=== PATIENT | male | born 1945 | race Caucasian/White ===

== ENCOUNTER 2020-06-05 03:30 | Observation (INO) ==
[2020-06-05] MEDS ORDERED: SODIUM CHLORIDE 0.9% 1000ML 1,000 ML IV ONE (03:46)
[2020-06-05] MEDS ORDERED: HYDROmorphone INJ 0.5 MG/0.5 ML SYR IV STA ×3 (03:46→10:19)
[2020-06-05] MEDS ORDERED: ONDANSETRON INJ 2 MG/ML 2 ML VIAL IV STA (03:46)
[2020-06-05 03:54] LABS: Basophils # (auto) 0.04 K/uL (0-0.2); Basophils % (auto) 0.5 %; Eosinophils # (auto) 0.38 K/uL (0-0.5); Hematocrit (blood only) 39.8 % (42-52); Hemoglobin 13.4 g/dL (14.0-18.0); Immature Granulocytes # (auto) 0.01 K/uL (0.00-0.02); Immature Granulocytes % (auto) 0.1 %; Lymphocytes # (auto) 2.75 K/uL (1.2-3.4); Lymphocytes % (auto) 36.4 %; Mean Corpuscular Hemoglobin 29.8 pg (25-34); Mean Corpuscular Hgb Conc 33.7 g/dL (32-36); Mean Corpuscular Volume 88.6 fL (80-100); Mean Platelet Volume 9.7 fL (7.4-10.4); Monocytes # (auto) 0.62 K/uL (0.11-0.59); Monocytes % (auto) 8.2 %; Neutrophils # (auto) 3.75 K/uL (1.4-6.5); Neutrophils % (auto) 49.8 %; Platelet Count 204 K/uL (130-400); RDW Coefficient of Variation 13.6 % (11.5-14.5); RDW Standard Deviation 44.3 fL (36.4-46.3); Red Blood Count 4.49 M/uL (4.7-6.1); White Blood Count 7.55 K/uL (4.8-10.8)
--- NOTE | 2020-06-05 03:56 | Emergency Department Note ---
History of Present Illness General Chief complaint: Back Injury/Pain Stated complaint: BACK/FLANK PAIN Time Seen by Provider: 06/05/20 03:38 Source: patient Mode of arrival: ambulatory Limitations: no limitations History of Present Illness Provider complaint: right flank pain Onset (ago): hour(s) 1 Location: back (right flank) Radiation: abdomen Severity: severe Pain Consistency: + colicky Maximum Pain Intensity: 8 Current Pain Intensity: 8 Quality: + sharp Relieved By: + none Exacerbated By: + movement Treatments prior to arrival: other (morphine - EMS) This 74-year-old male patient presents to the emergency department today for evaluation of right flank pain and nausea. The patient states the symptoms began approximately 1 hour ago. Earlier today, he was doing excessive amount of work outside. He states he was drinking a lot of fluids, but was not urinating much. He awoke at approximately 2 AM with the urge to urinate. He went a small amount then sat down to read. He states he then developed sudden onset of right flank pain which radiates to the right lower quadrant of the abdomen. Pt. states he called EMS and received morphine while en route which took his pain from an 8 to a 7, but states it is creeping up to an 8/10 again at this time. He describes a sharp sensation. Pt. denies any fever or chills. He denies any chest pain, difficulty breathing, nausea, vomiting, numbness, tingling, or weakness. He did have a few episodes of diarrhea, but states this is normal for him. Patient does not follow with a local urologist. He reports history of a kidney stones in the past. Home Medications Home Medications Medication Instructions Recorded Confirmed Type aspirin [Aspir-Low] 81 mg PO Q OTHER DAY 06/05/20 06/05/20 History cholecalciferol (vitamin D3) 25 mcg PO DAILY 06/05/20 06/05/20 History [Vitamin D3] lansoprazole 15 mg PO 2XWK 06/05/20 06/05/20 History oopxvd-ftnfqudr-zmzcelq [Creon] 2 cap PO TIDM 06/05/20 06/05/20 History multivitamin [Multi-Daily] 1 tab PO QAM 06/05/20 06/05/20 History vit B6-mag cit,oxid-potass cit 2 tab PO AMPM 06/05/20 06/05/20 History [Theralith XR] vitamin B complex 1 tab PO DAILY 06/05/20 06/05/20 History Allergies Allergy/AdvReac Type Severity Reaction Status Date / Time iodine Allergy Severe Hives Verified 06/05/20 04:34 erythromycin base Allergy Intermediate Hives Verified 06/05/20 04:34 levofloxacin [From Levaquin] Allergy Intermediate Hives Verified 06/05/20 04:34 Past Med/Surg History Medical History Acquired absence of other specified parts of digestive tract Nephrolithiasis Social History Smoking Status: Never smoker Hx Alcohol Use: No Hx Substance Use: No Feels Safe at Home: Yes Review of Systems A total of 10 systems reviewed and were otherwise negative Physical Exam Vital Signs Vital Signs - 24 hr 06/05/20 03:41 06/05/20 04:23 06/05/20 05:27 Temperature 36.8 C Temperature Source Oral Pulse Rate 60 Pulse Rate [Right] 62 Pulse Rhythm [Right] Regular Pulse Strength [Right] Normal Respiratory Rate 16 16 Respiratory Effort / Characteristics Non-Labored Spontaneous Non-Labored Spontaneous Respiratory Depth Normal Normal Blood Pressure 141/83 H Blood Pressure [Right Arm] 142/83 H Blood Pressure Mean 102 Blood Pressure Mean [Right Arm] 102 Blood Pressure Position [Right Arm] Pulse Oximetry 98 98 98 Oxygen Delivery Method Room Air Room Air Room Air Sepsis Recent Fever Within 48 Hours No Sepsis New/Unexplained Change in Mental Status N/A Sepsis Action Taken by Nursing No Action Required 06/05/20 06:01 Temperature Temperature Source Pulse Rate Pulse Rate [Right] 62 Pulse Rhythm [Right] Regular Pulse Strength [Right] Normal Respiratory Rate 16 Respiratory Effort / Characteristics Non-Labored Spontaneous Respiratory Depth Normal Blood Pressure Blood Pressure [Right Arm] 120/69 Blood Pressure Mean Blood Pressure Mean [Right Arm] 86 Blood Pressure Position [Right Arm] Sitting Pulse Oximetry 98 Oxygen Delivery Method Room Air Sepsis Recent Fever Within 48 Hours Sepsis New/Unexplained Change in Mental Status Sepsis Action Taken by Nursing VITALS: Vitals are noted on the nurse's note and reviewed by myself. Vital signs stable. GENERAL: This is a 74-year-old white male, in no acute distress, nondiaphoretic, well-developed well-nourished. SKIN: The skin was without rashes, erythema, edema, or bruising. There is no tenting of the skin. Capillary refill less than 2 seconds. HEAD: Normocephalic atraumatic. EYES: Conjunctivae without injection, sclerae without icterus. NECK: Supple without nuchal rigidity. No lymphadenopathy. No thyromegaly. Cervical spine is nontender. No JVD. HEART: Regular rate and rhythm without murmurs gallops or rubs. LUNGS: Clear to auscultation bilaterally without wheezes, rales or rhonchi. No retractions or accessory muscle use. ABDOMEN: Positive bowel sounds x 4. Normal tympanic percussion. Soft, nontender, without masses or organomegaly. Oconnor sign negative. No guarding or rebound tenderness. Positive right CVA tenderness. MUSCULOSKELETAL: No muscle atrophy, erythema, or edema noted. Full range of motion without joint tenderness in all extremities. No tenderness to palpation. Normal gait. Strength 5/5 throughout. NEURO: Patient was alert and oriented to person place and time. No focal neurological deficits. Course Course The patient was seen and evaluated as above. An order was placed for continuous cardiac monitoring. The monitor shows a normal sinus rhythm at a rate of 67 bpm. IV access obtained, labs drawn. Patient medicated with IV fluids and Dilaudid. Imaging performed and reviewed by myself and radiologist as noted. Labs reviewed by myself. I discussed the findings with the patient at bedside. He was reassessed and notes improvement in his symptoms, but he has not been able to urinate. States he needs a drink. I advised him that I am hydrating him through the IV and that he would need to remain NPO due to the size of the stone and likely need for intervention. I discussed the case with my attending. She did see and evaluate the patient. The patient is requesting more pain medication. He was given a repeat dose of 0 .5mg Dilaudid. I discussed the case with the manager of business. Urinalysis reviewed. I discussed the case with the [facility] Hospitalist, Dr. Ashton. He did agree to see the patient for admission. I discussed the case with Dr. Johnson, urologist computer lab para professional. He asked that Medicine place a consult to urology this morning and they will see the patient. Administered Medications Discontinued Medications Hydromorphone HCl (Hydromorphone Inj 0.5 Mg/0.5 Ml Syr) 0.5 mg IV NOW STA Stop: 06/05/20 03:47 Last Admin: 06/05/20 04:04 Dose: 0.5 mg Documented by: [id number] Hydromorphone HCl (Hydromorphone Inj 0.5 Mg/0.5 Ml Syr) 0.5 mg IV NOW STA Stop: 06/05/20 06:04 Last Admin: 06/05/20 06:09 Dose: 0.5 mg Documented by: [id number] Sodium Chloride (Nss 1000ml) 1,000 mls @ 999 mls/hr IV .Q1H1M ONE Stop: 06/05/20 04:46 Last Infusion: 06/05/20 05:16 Dose: 0 mls/hr Documented by: [id number] Admin: 06/05/20 04:04 Dose: 999 mls/hr Documented by: [id number] Ondansetron HCl (Ondansetron Inj 2 Mg/Ml 2 Ml Vial) 4 mg IV NOW STA Stop: 06/05/20 03:47 Last Admin: 06/05/20 04:09 Dose: Not Given Documented by: [id number] Tamsulosin HCl (Tamsulosin Hcl 0.4 Mg Cap) Confirm Administered Dose 0.4 mg .BELÉN RAMOSSTK-MED ONE Stop: 06/05/20 06:39 Last Admin: 06/05/20 06:39 Dose: 0.4 mg Documented by: [id number] Medical Decision Making Differential Diagnosis Renal colic, UTI, appendicitis, diverticulitis, mesenteric ischemia, aortic pathology, infections, inflammatory bowel disease, PUD, biliary pathology, as well as other pathologies. Home Medications Current Medication List: was personally reviewed by me Laboratory Data Attestation: I reviewed the patient's lab results. No leukocytosis, significant anemia, thrombocytopenia. Renal, hepatic function, and electrolytes without significant abnormality. Coags normal. Lipase 12. Urinalysis positive for trace blood, but no evidence of infection. Positive calcium oxalate crystals. Result diagrams: 06/05/20 03:40 06/05/20 03:40 Lab Results 06/05/20 06/05/20 06/05/20 Range/Units 03:40 03:40 03:40 WBC 7.55 (4.8-10.8) K/uL RBC 4.49 L (4.7-6.1) M/uL Hgb 13.4 L (14.0-18.0) g/dL Hct 39.8 L (42-52) % MCV 88.6 (80-100) fL MCH 29.8 (25-34) pg MCHC 33.7 (32-36) g/dL RDW Std Deviation 44.3 (36.4-46.3) fL RDW Coeff of Temitope 13.6 (11.5-14.5) % Plt Count 204 (130-400) K/uL MPV 9.7 (7.4-10.4) fL Immature Gran % (Auto) 0.1 % Neut % (Auto) 49.8 % Lymph % (Auto) 36.4 % [place] % (Auto) 8.2 % Eos % (Auto) 5.0 % Baso % (Auto) 0.5 % Neut # (Auto) 3.75 (1.4-6.5) K/uL Lymph # (Auto) 2.75 (1.2-3.4) K/uL [place] # (Auto) 0.62 H (0.11-0.59) K/uL Eos # (Auto) 0.38 (0-0.5) K/uL Baso # (Auto) 0.04 (0-0.2) K/uL Immature Gran # (Auto) 0.01 (0.00-0.02) K/uL PT 11.2 (9.0-12.0) Seconds INR 1.1 (0.9-1.1) APTT 21.4 (21.0-31.0) Seconds PTT Ratio 0.8 Sodium 141 (136-145) mmol/L Potassium (3.5-5.1) mmol/L Chloride 111 H (98-107) mmol/L Carbon Dioxide 25 (21-32) mmol/L Anion Gap 5.0 (3-11) BUN 20 H (7-18) mg/dl Creatinine 1.31 (0.6-1.4) mg/dl Est Cr Clr Drug Dosing 49.5 ml/min Est GFR ( Amer) 60.9 Est GFR (Non-Af Amer) 52.5 BUN/Creatinine Ratio 15.5 (10-20) Glucose 128 H (70-99) mg/dl Calcium 8.7 (8.5-10.1) mg/dl Total Bilirubin 0.8 (0.2-1) mg/dl AST (15-37) U/L ALT 34 (12-78) U/L Alkaline Phosphatase 63 (45-117) U/L Total Protein 7.1 (6.4-8.2) gm/dl Albumin 3.5 (3.4-5.0) gm/dl Globulin 3.6 (2.5-4.0) gm/dl Albumin/Globulin Ratio 1.0 (0.9-2) Lipase 12 L (73-393) U/L Urine Color Urine Appearance (Clear) Urine pH (4.5-7.5) Ur Specific Hobbs (1.000-1.030) Urine Protein (Negative) Urine Glucose (UA) (Negative) Urine Ketones (Negative) Urine Blood (Negative) Urine Nitrite (Negative) Urine Bilirubin (Negative) Urine Urobilinogen (Negative) Ur Leukocyte Esterase (Negative) Urine RBC (0-4) /hpf Urine WBC (0-5) /hpf Ur Epithelial Cells (0-5) /lpf Calcium Oxalate Crystal (None Prsent) Urine Bacteria (Negative) 06/05/20 Range/Units 04:30 WBC (4.8-10.8) K/uL RBC (4.7-6.1) M/uL Hgb (14.0-18.0) g/dL Hct (42-52) % MCV (80-100) fL MCH (25-34) pg MCHC (32-36) g/dL RDW Std Deviation (36.4-46.3) fL RDW Coeff of Temitope (11.5-14.5) % Plt Count (130-400) K/uL MPV (7.4-10.4) fL Immature Gran % (Auto) % Neut % (Auto) % Lymph % (Auto) % [place] % (Auto) % Eos % (Auto) % Baso % (Auto) % Neut # (Auto) (1.4-6.5) K/uL Lymph # (Auto) (1.2-3.4) K/uL [place] # (Auto) (0.11-0.59) K/uL Eos # (Auto) (0-0.5) K/uL Baso # (Auto) (0-0.2) K/uL Immature Gran # (Auto) (0.00-0.02) K/uL PT (9.0-12.0) Seconds INR (0.9-1.1) APTT (21.0-31.0) Seconds PTT Ratio Sodium (136-145) mmol/L Potassium (3.5-5.1) mmol/L Chloride (98-107) mmol/L Carbon Dioxide (21-32) mmol/L Anion Gap (3-11) BUN (7-18) mg/dl Creatinine (0.6-1.4) mg/dl Est Cr Clr Drug Dosing ml/min Est GFR ( Amer) Est GFR (Non-Af Amer) BUN/Creatinine Ratio (10-20) Glucose (70-99) mg/dl Calcium (8.5-10.1) mg/dl Total Bilirubin (0.2-1) mg/dl AST (15-37) U/L ALT (12-78) U/L Alkaline Phosphatase (45-117) U/L Total Protein (6.4-8.2) gm/dl Albumin (3.4-5.0) gm/dl Globulin (2.5-4.0) gm/dl Albumin/Globulin Ratio (0.9-2) Lipase (73-393) U/L Urine Color Yellow Urine Appearance Clear (Clear) Urine pH 5.0 (4.5-7.5) Ur Specific Hobbs >= 1.030 (1.000-1.030) Urine Protein Trace H (Negative) Urine Glucose (UA) Negative (Negative) Urine Ketones Negative (Negative) Urine Blood Trace H (Negative) Urine Nitrite Negative (Negative) Urine Bilirubin Negative (Negative) Urine Urobilinogen Negative (Negative) Ur Leukocyte Esterase Negative (Negative) Urine RBC 0-4 (0-4) /hpf Urine WBC 5-10 H (0-5) /hpf Ur Epithelial Cells 10-20 H (0-5) /lpf Calcium Oxalate Crystal Present A (None Prsent) Urine Bacteria Negative (Negative) Imaging Data Radiologist's Impression: CT ABDOMEN & PELVIS Without Contrast: 8 mm obstructing calculus in the right proximal ureter. Mild right hydroureteronephrosis and perinephric stranding. Small nonobstructing right renal calculus. Atrophic pancreas/postsurgical changes, Whipple procedure. Pneumobilia. Appendectomy. Small fat-containing inguinal hernias. L4-5 posterior fusion. Enlarged prostate Radiologist: Miesha Haines M.D. Blood Pressure Blood Pressure Findings: Elevated blood pressure Blood Pressure Disposition: elevated BP felt to be situational MDM Narrative This 74-year-old male patient presents the emergency department today for evaluation of right flank pain. Symptoms are consistent with stones he has experienced in the past. Work-up here in the ED is consistent with an 8 mm stone in the proximal right ureter. The patient is not septic. There does not appear to be any urinary tract infection or pyelonephritis, however there is tameka e stranding noted on CT imaging. Patient's pain was difficult to control and he required multiple rounds of Dilaudid. He will be admitted to the [facility] hospitalist service for ongoing management. I did discuss the case with the urologist on-call. I spoke with Dr. Johnson, who agreed that urology service would consult on this patient. The patient will be admitted to the hospitalist service. Please see hospitalist dictation regarding ongoing management care of this patient. The chart was completed utilizing [employer] Speech voice recognition software. Grammatical errors, random word insertions, pronoun errors, and incomplete sentences are an occasional consequence of this system due to software limitations, ambient noise, and hardware issues. Any formal questions or concerns about the content, text, or information contained within the body of this dictation should be directly addressed to the provider for clarification. Impression & Plan Right ureteral calculus, Acute right flank pain Discharge Plan Visit Data Chief Complaint: Back Injury/Pain Stated Complaint: BACK/FLANK PAIN ED Provider: Sandy Almeida ED Midlevel Provider: Tram Harrington Discharge Problem: Right ureteral calculus, Acute right flank pain Patient Disposition: Admitted As Inpatient Forms Stand Alone Forms: My [facility] Prescriptions Prescriptions: No Action multivitamin [Multi-Daily] Tablet 1 tab PO QAM RF: 0 aspirin [Aspir-Low] 81 mg Tablet,Delayed Release (Dr/Ec) 81 mg PO Q OTHER DAY RF: 0 lansoprazole 15 mg Capsule,Delayed Release(Dr/Ec) 15 mg PO 2XWK RF: 0 vitamin B complex Tablet 1 tab PO DAILY RF: 0 cholecalciferol (vitamin D3) [Vitamin D3] 25 mcg (1,000 unit) Tablet 25 mcg PO DAILY RF: 0 Creon 24,000-76,000 -120,000 unit Capsule,Delayed Release(Dr/Ec) 2 cap PO TIDM RF: 0 Theralith XR 3.75-45-45-49.5 mg Tablet Extended Release 2 tab PO AMPM RF: 0 Referrals Referrals: Payam Mary MD [Primary Care Provider] -
[2020-06-05 04:04] LABS: INR 1.1 (0.9-1.1); Partial Thromboplastin Ratio 0.8; Partial Thromboplastin Time 21.4 Seconds (21.0-31.0); Prothrombin Time 11.2 Seconds (9.0-12.0)
[2020-06-05 04:11] LABS: Albumin Level 3.5 gm/dl (3.4-5.0); BUN Creatinine Ratio 15.5 (10-20); Bilirubin,Total 0.8 mg/dl (0.2-1); Calcium 8.7 mg/dl (8.5-10.1); Creatinine Clr Calc Pharmacy 49.5 ml/min; Est GFR (African American) 60.9; Est GFR (Non-African American) 52.5; Globulin 3.6 gm/dl (2.5-4.0); Total Protein 7.1 gm/dl (6.4-8.2)
[2020-06-05 06:22] LABS: Appearance Urine Clear (Clear); Bilirubin Urine Negative (Negative); Blood Urine Trace (Negative); Color Urine Yellow; Glucose Urine UA Negative (Negative); Ketones Urine Negative (Negative); Leukocyte Esterase Urine Negative (Negative); Nitrite Urine Negative (Negative); Protein Urine Trace (Negative); Specific Gravity Urine >= 1.030 (1.000-1.030); Urobilinogen Urine Negative (Negative)
--- NOTE | 2020-06-05 06:30 | Emergency Department Note ---
ED Visit Note I have personally seen and evaluated the patient with the PA. I agree with the diagnosis and management decisions and have been personally involved in the case. Please see Tram Harrington PA-C's notes for further details of the history, physical and visit. The patient was having increased pain secondary to the stone. He will receive additional pain medication at this time. .
[2020-06-05] MEDS ORDERED: TAMSULOSIN HCL 0.4 MG CAP PO ONE (06:33)
[2020-06-05 06:35] LABS: RBC Urine 0-4 /hpf (0-4)
[2020-06-05 06:36] LABS: Bacteria Urine Negative (Negative); Calcium Oxalate Crystals Urine Present (None Prsent)
[2020-06-05] MEDS ORDERED: TAMSULOSIN HCL 0.4 MG CAP ONE (06:38)
--- NOTE | 2020-06-05 07:03 | History & Physical Report ---
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 [place] [facility] N.p.o. until patient seen by Urology in anticipation of procedure. Anemia work-up DVT prophylaxis. SCDs Full code Patient requesting updates from providers. Ms. Rekha Hall, contact #[phone]. Text document was generated using [employer] voice recognition software. It may contain grammatical or spelling errors. Kindly contact undersigned for clarification of any documentation item in question. History of Present Illness Chief Complaint: Kidney stone pain Primary Care Provider: Payam Mary MD History obtained from patient, family, and records. Medical history significant for duodenal cancer status post Whipple surgery, urolithiasis, prediabetes. This morning patient experienced achy right flank discomfort reminiscent of kidn ey stone pain with nausea. No hematuria, fever, chills. No chest pain, no S OB. Nonbloody loose stools which has been patient's norm after Whipple surgery decades ago. Patient brought to the ER by . 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 Allergies Allergy/AdvReac Type Severity Reaction Status Date / Time iodine Allergy Severe Hives Verified 06/05/20 04:34 erythromycin base Allergy Intermediate Hives Verified 06/05/20 04:34 levofloxacin [From Levaquin] Allergy Intermediate Hives Verified 06/05/20 04:34 Home Medications Home Medications Medication Instructions Recorded Confirmed Type aspirin [Aspir-Low] 81 mg PO Q OTHER DAY 06/05/20 06/05/20 History cholecalciferol (vitamin D3) 25 mcg PO DAILY 06/05/20 06/05/20 History [Vitamin D3] lansoprazole 15 mg PO 2XWK 06/05/20 06/05/20 History ewvhsm-skqlteqz-ytthxal [Creon] 2 cap PO TIDM 06/05/20 06/05/20 History multivitamin [Multi-Daily] 1 tab PO QAM 06/05/20 06/05/20 History vit B6-mag cit,oxid-potass cit 2 tab PO AMPM 06/05/20 06/05/20 History [Theralith XR] vitamin B complex 1 tab PO DAILY 06/05/20 06/05/20 History Past Med/Surg History Medical History (Updated 06/05/20 @ 13:26 by Leann Crews RN) Acquired absence of other specified parts of digestive tract H/O pancreatic cancer s/p whipple Nephrolithiasis Prediabetes Surgical History (Updated 06/05/20 @ 12:53 by Gregorio Dang MD) H/O knee surgery History of back surgery Social History Smoking Status: Former smoker Second Hand Exposure: No; Do You Dip or Chew Tobacco: No; Tobacco Cessation Education Requested by Patient: No Hx Alcohol Use: Yes Alcohol type: wine Hx Substance Use: No Preferred Language: [place] Communication Ability: Effective Oyster Sorter Required: No Beliefs That Will Affect Care: None Current Living Situation: Spouse Other Information That Helps Us Care for You: No Feels Safe at Home: Yes Review of Systems Review of Systems: As per HPI, all 10 systems reviewed, all other ROS negative Physical Exam Physical Exam: GENERAL: Comfortable, slightly anxious, pleasant, no respiratory distress SKIN: Normal color, warm HEENT: Bespectacled, pink palpebral conjunctivae, no ptosis, dry buccal mucosa NECK : Supple, no tenderness CHEST : CTA, no tenderness HEART : RRR, no obvious murmurs ABDOMEN: Some distention, nontender EXTREMITIES : No LE swelling/tenderness, no other conspicuous deformities noted NEUROLOGIC : Coherent, no facial asymmetry, no other gross focality Results & Data Results & Data ([facility]) Vital Signs (Past 12 Hours) Vital Signs Temp Pulse Pulse Resp BP BP Pulse Ox 06/05/20 06:01 62 16 120/69 98 06/05/20 05:27 62 16 142/83 H 98 06/05/20 04:23 98 06/05/20 03:41 36.8 C 60 16 141/83 H 98 Laboratory Results Laboratory Results WBC 7.55 K/uL (4.8-10.8) 06/05/20 03:40 RBC 4.49 M/uL (4.7-6.1) L 06/05/20 03:40 Hgb 13.4 g/dL (14.0-18.0) L 06/05/20 03:40 Hct 39.8 % (42-52) L 06/05/20 03:40 MCV 88.6 fL (80-100) 06/05/20 03:40 MCH 29.8 pg (25-34) 06/05/20 03:40 MCHC 33.7 g/dL (32-36) 06/05/20 03:40 RDW Std Deviation 44.3 fL (36.4-46.3) 06/05/20 03:40 RDW Coeff of Temitope 13.6 % (11.5-14.5) 06/05/20 03:40 Plt Count 204 K/uL (130-400) 06/05/20 03:40 MPV 9.7 fL (7.4-10.4) 06/05/20 03:40 Immature Gran % (Auto) 0.1 % 06/05/20 03:40 Neut % (Auto) 49.8 % 06/05/20 03:40 Lymph % (Auto) 36.4 % 06/05/20 03:40 [facility] % (Auto) 8.2 % 06/05/20 03:40 Eos % (Auto) 5.0 % 06/05/20 03:40 Baso % (Auto) 0.5 % 06/05/20 03:40 Neut # (Auto) 3.75 K/uL (1.4-6.5) 06/05/20 03:40 Lymph # (Auto) 2.75 K/uL (1.2-3.4) 06/05/20 03:40 [facility] # (Auto) 0.62 K/uL (0.11-0.59) H 06/05/20 03:40 Eos # (Auto) 0.38 K/uL (0-0.5) 06/05/20 03:40 Baso # (Auto) 0.04 K/uL (0-0.2) 06/05/20 03:40 Immature Gran # (Auto) 0.01 K/uL (0.00-0.02) 06/05/20 03:40 PT 11.2 Seconds (9.0-12.0) 06/05/20 03:40 INR 1.1 (0.9-1.1) 06/05/20 03:40 APTT 21.4 Seconds (21.0-31.0) 06/05/20 03:40 PTT Ratio 0.8 06/05/20 03:40 Sodium 141 mmol/L (136-145) 06/05/20 03:40 Potassium mmol/L (3.5-5.1) 06/05/20 03:40 Chloride 111 mmol/L (98-107) H 06/05/20 03:40 Carbon Dioxide 25 mmol/L (21-32) 06/05/20 03:40 Anion Gap 5.0 (3-11) 06/05/20 03:40 BUN 20 mg/dl (7-18) H 06/05/20 03:40 Creatinine 1.31 mg/dl (0.6-1.4) 06/05/20 03:40 Est Cr Clr Drug Dosing 49.5 ml/min 06/05/20 03:40 Est GFR ( Amer) 60.9 06/05/20 03:40 Est GFR (Non-Af Amer) 52.5 06/05/20 03:40 BUN/Creatinine Ratio 15.5 (10-20) 06/05/20 03:40 Glucose 128 mg/dl (70-99) H 06/05/20 03:40 Calcium 8.7 mg/dl (8.5-10.1) 06/05/20 03:40 Total Bilirubin 0.8 mg/dl (0.2-1) 06/05/20 03:40 AST U/L (15-37) 06/05/20 03:40 ALT 34 U/L (12-78) 06/05/20 03:40 Alkaline Phosphatase 63 U/L (45-117) 06/05/20 03:40 Total Protein 7.1 gm/dl (6.4-8.2) 06/05/20 03:40 Albumin 3.5 gm/dl (3.4-5.0) 06/05/20 03:40 Globulin 3.6 gm/dl (2.5-4.0) 06/05/20 03:40 Albumin/Globulin Ratio 1.0 (0.9-2) 06/05/20 03:40 Lipase 12 U/L (73-393) L 06/05/20 03:40 Urine Color Yellow 06/05/20 04:30 Urine Appearance Clear (Clear) 06/05/20 04:30 Urine pH 5.0 (4.5-7.5) 06/05/20 04:30 Ur Specific Dexter >= 1.030 (1.000-1.030) 06/05/20 04:30 Urine Protein Trace (Negative) H 06/05/20 04:30 Urine Glucose (UA) Negative (Negative) 06/05/20 04:30 Urine Ketones Negative (Negative) 06/05/20 04:30 Urine Blood Trace (Negative) H 06/05/20 04:30 Urine Nitrite Negative (Negative) 06/05/20 04:30 Urine Bilirubin Negative (Negative) 06/05/20 04:30 Urine Urobilinogen Negative (Negative) 06/05/20 04:30 Ur Leukocyte Esterase Negative (Negative) 06/05/20 04:30 Urine RBC 0-4 /hpf (0-4) 06/05/20 04:30 Urine WBC 5-10 /hpf (0-5) H 06/05/20 04:30 Ur Epithelial Cells 10-20 /lpf (0-5) H 06/05/20 04:30 Calcium Oxalate Crystal Present (None Prsent) A 06/05/20 04:30 Urine Bacteria Negative (Negative) 06/05/20 04:[address] abdomen pelvis initial read: 8 mm obstructing calculus right proximal ureter with mild right hydroureteronephrosis and perinephric stranding. Small nonobstructing right renal calculus. Atrophic pancreas/postsurgical changes. Pneumobilia. Appendectomy. Small fat-containing inguinal hernia. Enlarged prostate.
--- NOTE | 2020-06-05 07:07 | CT Scan Report ---
CT abd pelvis wo con CT DOSE: 846.13 mGy.cm HISTORY: Flank pain right flank pain TECHNIQUE: Multiaxial CT images of the abdomen and pelvis were performed without contrast. A dose lo wering technique was utilized adhering to the principles of ALARA. COMPARISON STUDY: None. FINDINGS: The lung bases are clear. There is an the biliary ductal system. Prior postoperative change suggesting a well type procedure. 8 millimeters obstructing calculus proximal right ureter. Right renal hydronephrosis. Mild fullness left renal collecting system. Nonspecific infiltrative changes in the perinephric fat b ilaterally. Nonobstructive bowel pattern. Postoperative changes involving the lumbar spine. Bladder i s midline. Postoperative changes including scarring of the right inguinal region. No significant pelvic or inguinal adenopathy. IMPRESSION: 1. 8 mm obstructing calculus proximal right ureter. 2. Right hydronephrosis. 3. Additional findings throughout the abdomen and pelvis considered to be pre-existing ACT 112: Negative or not required by law. The above report was generated using voice recognition software. It may contain grammatical, syntax or spelling errors. Electronically signed by: Robb Abarham M.D. 06/05/2020 7:06 AM
[2020-06-05] MEDS ORDERED: PROMETHAZINE HCL 12.5 MG in SODIUM CHLORIDE 0.9% 50 ML IV PRN (07:38)
[2020-06-05] MEDS ORDERED: OXYCODONE HCL IR 5 MG TAB (IMMEDIATE RELEASE) PO PRN (07:38)
[2020-06-05] MEDS ORDERED: SODIUM CHLORIDE 0.9% 1000ML 1,000 ML IV SCH (07:38)
[2020-06-05] MEDS ORDERED: ACETAMINOPHEN 325 MG TAB PO PRN (07:38)
[2020-06-05] MEDS ORDERED: MoRPHine SULFATE 2 MG/ML CARP IV PRN (07:50)
[2020-06-05] MEDS ORDERED: VITAMIN B COMPLEX TAB PO SCH (09:00)
[2020-06-05] MEDS ORDERED: MULTIVITAMIN TAB PO SCH (09:00)
--- NOTE | 2020-06-05 09:09 | XRay Report ---
KUB CLINICAL HISTORY: Right ureteral stone. FINDINGS: 2 AP supine abdominal radiographs are correlated with abdominal CT performed earlier the day 06/05/2020. There is a nonobstructed abdominal bowel gas pattern noting moderate colonic fecal retention. An 8 mm obstructing calculus in the right proximal ureter is again seen at the level of L2 . No additional calcifications are identified projecting over either kidney. The skeletal structures are osteopenic and appear intact. Fusion hardware is noted in the lower lumbar spine. Sclerotic fr[place] e is seen in the sacroiliac joints. IMPRESSION: An 8 mm obstructing calculus in the proximal right ureter is unchanged from previous. Electronically signed by: Rich Levine M.D. 06/05/2020 9:08 AM
[2020-06-05 09:49] LABS: Reticulocyte % 0.9 % (0.5-2.0); Reticulocytes # 0.04 10^6/uL (0.02-0.10)
[2020-06-05 10:04] LABS: Potassium 4.3 mmol/L (3.5-5.1)
[2020-06-05 10:13] LABS: Magnesium 2.3 mg/dl (1.8-2.4)
[2020-06-05] MEDS: PANCREAZE (LIPASE 10,500U) CAP PO SCH ×3 (10:19→17:33)
[2020-06-05] MEDS ORDERED: CEFAZOLIN 2000MG 2,000 MG/15 ML SYR IV SCH (11:15)
--- NOTE | 2020-06-05 11:16 | Urology Consultation ---
Date of Consultation June 05, 2020 Assessment & Plan (1) Right ureteral calculus: (2) Renal colic: 74yo M with an 8mm proximal right ureteral stone with hydronephrosis and right renal colic -Given his continued right renal colic, will proceed to OR for stent placement -He remains afebrile, WBC and Cr are stable -Keep NPO -Findings reviewed with Dr. Kenny. Given his right renal colic and hydronephrosis in the context of an obstructing 8mm proximal right ureteral stone, will proceed with OR for cysto, Right retrograde pyelogram and Right stent placement. Risks and benefits to be reviewed with patient by Dr. Kenny. OR notified. Preoperative CXR and EKG ordered. Will cover with IV Ancef preoperatively. Pt. seen and discussed options risks and benefits . Agreed to place a stent under sedation in this pt w/o covid testing and subsequent eswl or ureteroscopy electively. Shay Kenny History of Present Illness Reason for Consultation: Obstructive Uropathy Attending Physician: Ramandeep Figueroa MD History of Present Illness The patient is a 74-year-old male patient admitted today for right flank pain and nausea related to an 8mm obstructing proximal ureteral stone with hydronephrosis. PMHx includes Nephrolithiasis, duodenal cancer s/p Whipple surgery, anemia, prediabetes Chart Review: -Afebrile -WBC -7.55 -HgB- 13.4 -Cr -1.31 -CT- 8 mm obstructing calculus proximal right ureter with hydronephrosis -KUB - An 8 mm obstructing calculus in the proximal right ureter -UA-trace blood, trace protein, 5-10WBC Patient examined at the bedside today. At present, he reports right back and flank pain. Rates pain 9/10. He is currently getting IV Morphine for pain control. He denies fevers or chills. No nausea or vomiting. He has been NPO. Denies gross hematuria and dysuria. Feels like he is emptying his bladder completely. No additional urinary symptoms. He reports a history of nephrolithiasis requiring surgical interventions in the past. He was previously seen by a Urologist in [place]. No additional Urological concerns today Allergies Allergy/AdvReac Type Severity Reaction Status Date / Time iodine Allergy Severe Hives Verified 06/05/20 04:34 erythromycin base Allergy Intermediate Hives Verified 06/05/20 04:34 levofloxacin [From Levaquin] Allergy Intermediate Hives Verified 06/05/20 04:34 Home Medications Home Medications Medication Instructions Recorded Confirmed Type aspirin [Aspir-Low] 81 mg PO Q OTHER DAY 06/05/20 06/05/20 History cholecalciferol (vitamin D3) 25 mcg PO DAILY 06/05/20 06/05/20 History [Vitamin D3] lansoprazole 15 mg PO 2XWK 06/05/20 06/05/20 History [id number]-[id number]-[id number] [Creon] 2 cap PO TIDM 06/05/20 06/05/20 History multivitamin [Multi-Daily] 1 tab PO QAM 06/05/20 06/05/20 History vit B6-mag cit,oxid-potass cit 2 tab PO AMPM 06/05/20 06/05/20 History [Theralith XR] vitamin B complex 1 tab PO DAILY 06/05/20 06/05/20 History Patient History Medical History (Updated 06/05/20 @ 13:26 by Leann Crews RN) Acquired absence of other specified parts of digestive tract H/O pancreatic cancer s/p whipple Nephrolithiasis Prediabetes Surgical History (Updated 06/05/20 @ 12:53 by Gregorio Dang MD) H/O knee surgery History of back surgery Social History Smoking Status: Former smoker Second Hand Exposure: No; Do You Dip or Chew Tobacco: No; Tobacco Cessation Education Requested by Patient: No Hx Alcohol Use: Yes Alcohol type: wine Hx Substance Use: No Preferred Language: Portuguese Communication Ability: Effective Labeler Required: No Beliefs That Will Affect Care: None Current Living Situation: Spouse Other Information That Helps Us Care for You: No Feels Safe at Home: Yes Review of Systems Review of Systems: All systems reviewed & are unremarkable except as noted in HPI & below Physical Exam Constitutional: well developed and well nourished; no acute distress and not ill appearing Eyes: no eyelid abnormality ENMT: Ears: no external ear abnormality Neck: normal visual inspection; no anterior neck swelling Respiratory: normal respiratory effort and able to speak in complete sentences Cardiovascular: Rate/Rhythm: regular rate and regular rhythm No peripheral edema Gastrointestinal (Abdomen): Inspection/Auscultation: abdomen normal to inspection; abdomen not distended Musculoskeletal: Head/Neck/Chest: normocephalic and head atraumatic Skin: no rashes, warm and dry normal color to visualized skin areas Neurologic: moves all extremities and awake; not confused Psychiatric: Orientation: alert, oriented x 3 and cooperative Results & Data ([facility]) Vital Signs (Past 12 Hours) Vital Signs Temp Pulse Pulse Pulse Resp BP BP 06/05/20 07:35 36.7 C 71 18 142/67 H 06/05/20 06:01 62 16 120/69 06/05/20 05:27 62 16 142/83 H 06/05/20 04:23 06/05/20 03:41 36.8 C 60 16 141/83 H Pulse Ox 06/05/20 07:35 96 06/05/20 06:01 98 06/05/20 05:27 98 06/05/20 04:23 98 06/05/20 03:41 98 PG Care Time/CCT Total # of Minutes Spent Total Time Spent with Patient: Total time spent is greater than 50% in coordination of care (as documented) at patient's floor/unit and/or counseling patient: Coding Level of Care Code 62713 Inpt Consult Level 4 Diagnoses Right ureteral calculus N20.1 Renal colic N23
--- NOTE | 2020-06-05 12:07 | XRay Report ---
XR chest 2V PA/lateral CLINICAL HISTORY: pre op COMPARISON STUDY: No previous studies for comparison. FINDINGS: The bones soft tissues and hemidiaphragms are normal. The cardiomediastinal silhouette is n ormal. The lungs are clear. The pulmonary vasculature is normal. IMPRESSION: Negative chest. ACT 112: Negative or not required by law. The above report was generated using voice recognition software. It may contain grammatical, syntax or spelling errors. Electronically signed by: Robb Abraham M.D. 06/05/2020 12:06 PM
[2020-06-05] MEDS ORDERED: LIDOCAINE HCL 2% 2 ML VIAL/AMP(20MG/ML) INFIL ONE (12:30)
[2020-06-05] MEDS ORDERED: PROPOFOL IV EMULSION 10 MG/ML 20 ML VIAL IV ONE (12:30)
[2020-06-05] MEDS ORDERED: MIDAZOLAM HCL 1 MG/ML 2ML VIAL ONE (12:31)
[2020-06-05] MEDS ORDERED: fentaNYL citrate 100 MCG/2 ML VIAL ONE (12:31)
[2020-06-05] MEDS ORDERED: ONDANSETRON INJ 2 MG/ML 2 ML VIAL IV PRN (12:32)
[2020-06-05] MEDS ORDERED: fentaNYL citrate 100 MCG/2 ML VIAL IV PRN (12:32)
[2020-06-05] MEDS ORDERED: ATROPINE SULFATE 0.1 MG/ML 10ML SYR IV PRN (12:32)
[2020-06-05] MEDS ORDERED: ePHEDrine sulfate 50 MG/ML AMP IV PRN (12:32)
--- NOTE | 2020-06-05 12:32 | Anesthesiology Consultation ---
Date of Service June 05, 2020 Assessment & Plan (1) Encounter for pre-operative examination: Chart Review Chart Review: Acceptable Risk for Surgery and Patient NOT seen in Pre Admission Testing Preop covid screening test 06/05/2020 negative. Consults Requested none History Surgery Operation Date: 06/05/20 15:55 Proposed Procedures p Cystoscopy, Retrograde Pyelogram, Right Stent Insertion - Calvin Kenny MD Height/Weight Height: 5 ft 10 in Weight: 81.6 kg Allergies Allergy/AdvReac Type Severity Reaction Status Date / Time iodine Allergy Severe Hives Verified 06/05/20 04:34 erythromycin base Allergy Intermediate Hives Verified 06/05/20 04:34 levofloxacin [From Levaquin] Allergy Intermediate Hives Verified 06/05/20 04:34 Medications Home Medications Medication Instructions Recorded Confirmed Last Taken aspirin [Aspir-Low] 81 mg PO Q OTHER DAY 06/05/20 06/05/20 06/04/20 cholecalciferol (vitamin D3) 25 mcg PO DAILY 06/05/20 06/05/20 06/04/20 [Vitamin D3] lansoprazole 15 mg PO 2XWK 06/05/20 06/05/20 06/03/20 [id number]-[id number] [Creon] 2 cap PO TIDM 06/05/20 06/05/20 06/04/20 multivitamin [Multi-Daily] 1 tab PO QAM 06/05/20 06/05/20 06/04/20 vit B6-mag cit,oxid-potass cit 2 tab PO AMPM 06/05/20 06/05/20 06/04/20 [Theralith XR] vitamin B complex 1 tab PO DAILY 06/05/20 06/05/20 06/04/20 Active Medications Generic Name Dose Route Start Last Admin Trade Name Freq PRN Reason Stop Dose Admin Lipase/Protease/Amylase 4 cap 06/05/20 09:15 06/05/20 12:12 Pancreaze (Lipase 10,500u) Cap PO 07/05/20 09:14 Not Given TIDM ANN Sodium Chloride 1,000 mls @ 75 mls/hr 06/05/20 07:38 06/05/20 09:42 Nss 1000ml IV 07/05/20 07:37 75 mls/hr .[id number] ANN Administration Morphine Sulfate 2 mg 06/05/20 07:50 06/05/20 08:02 Morphine Sulfate 2 Mg/Ml Carp IV 06/19/20 07:49 2 mg Q3H PRN Administration Pain Multivitamins 1 tab 06/05/20 09:00 06/05/20 10:19 Multivitamin Tab PO 07/05/20 08:59 Not Given QAM ANN Vitamin B Complex 1 tab 06/05/20 09:00 06/05/20 10:19 Vitamin B Complex Tab PO 07/05/20 08:59 Not Given DAILY ANN Past Medical History Medical History Acquired absence of other specified parts of digestive tract H/O pancreatic cancer s/p whipple Nephrolithiasis Exercise / Class Metabolic Activity II 4-5 Yardwork/Stairs/Walk up hill Past Surgical History Surgical History (Updated 06/05/20 @ 12:53 by Gregorio Dang MD) H/O knee surgery History of back surgery history of whipplesurgery Past Anesthesia History No Hx of Anesthesia Complications and No Family Hx of Anesthesia Complications History of PONV No Hx of PONV and No Hx of Motion Sickness Social History Smoking Status: Former smoker tobacco type: pipe Do You Dip or Chew Tobacco: No Hx Alcohol Use: Yes Alcohol type: wine alcohol intake frequency: 0-2 drinks per day Hx Substance Use: No Physical Exam Vital Signs Last Vital Signs Temp 36.6 C 06/05/20 12:49 Pulse 96 H 06/05/20 12:49 Resp 20 06/05/20 12:49 BP 154/74 H 06/05/20 12:49 Pulse Ox 97 06/05/20 12:49 Testing Laboratory Results 06/05/20 03:40 06/05/20 09:37 PT 11.2 Seconds (9.0-12.0) 06/05/20 03:40 INR 1.1 (0.9-1.1) 06/05/20 03:40 APTT 21.4 Seconds (21.0-31.0) 06/05/20 03:40 Urine Color Yellow 06/05/20 04:30 Urine Appearance Clear (Clear) 06/05/20 04:30 Urine pH 5.0 (4.5-7.5) 06/05/20 04:30 Ur Specific [place] >= 1.030 (1.000-1.030) 06/05/20 04:30 Urine Protein Trace (Negative) H 06/05/20 04:30 Urine Glucose (UA) Negative (Negative) 06/05/20 04:30 Urine Ketones Negative (Negative) 06/05/20 04:30 Urine Nitrite Negative (Negative) 06/05/20 04:30 Ur Leukocyte Esterase Negative (Negative) 06/05/20 04:30 Urine RBC 0-4 /hpf (0-4) 06/05/20 04:30 Urine WBC 5-10 /hpf (0-5) H 06/05/20 04:30 Ur Epithelial Cells 10-20 /lpf (0-5) H 06/05/20 04:30 Electrocardiogram Date: 06/05/20 Findings: + NSR @ (75) Sinus rhythm with 1st degree AV block Incomplete RBBB Chest X-Ray Date: 06/05/20 XR chest 2V PA/lateral CLINICAL HISTORY: pre op COMPARISON STUDY: No previous studies for comparison. FINDINGS: The bones soft tissues and hemidiaphragms are normal. The cardiomediastinal silhouette is normal. The lungs are clear. The pulmonary vasculature is normal. IMPRESSION: Negative chest.
--- NOTE | 2020-06-05 12:39 | Hospitalist Progress Note ---
Date of Service June 05, 2020 Assessment & Plan (1) Acute right flank pain: (2) Right ureteral calculus: (3) Hydronephrosis of right kidney: (4) Renal colic: Present on admission with right flank pain and nausea CT abd/pelvis showed 8 mm obstructing calculus proximal right ureter. Right hydronephrosis. UA showed trace of blood, but negative for nitrite, leukocytes and bacteria Urology on board Plan to proceed with OR for cysto, Right retrograde pyelogram and Right stent placement Continue IV pain meds and IVF Will keep NPO for now Duodenal cancer status post Whipple surgery Continue PPI Stable Anemia Hbg 13.4 Continue monitor Prediabetes, Recent Hba1c 6.1 on May 2020 Counseling on lifestyle modification DVT px on SCD (Ancipitate surgical prodedure ) CODE STATUS FULL CODE Disposition Patient requesting updates from providers. Ms. Rekha Hall, contact #[phone]. Admission and Anticipated Discharge Date Admission Date: June 05, 2020 Subjective Pt was seen and examined Sitting in bed with no distress Pt was walking in the hallway early He said that the pain med help but does not seems to last much He said that the dilaudid was effective when he got it in the ER Denies any chest pain, palpitation, dizziness and SOB Physical Exam Physical Exam: General- No acute distress Head- atraumatic Eyes- PERRL, EOMI, ENT- oropharynx clear Neck- supple, no JVD Lungs- clear to auscultation Heart- regular rhythm; no murmur Abdomen- normal bowel sounds, soft, nontender Extremities- no calf tenderness Neuro- alert, oriented x 3; PERRL, EOMI; no facial palsy; no dysarthria Skin- warm & dry Results & Data Results & Data ([facility]) Vital Signs (Past 12 Hours) Vital Signs Temp Pulse Pulse Pulse Resp BP BP 06/05/20 07:35 36.7 C 71 18 142/67 H 06/05/20 06:01 62 16 120/69 06/05/20 05:27 62 16 142/83 H 06/05/20 04:23 06/05/20 03:41 36.8 C 60 16 141/83 H Pulse Ox 06/05/20 07:35 96 06/05/20 06:01 98 06/05/20 05:27 98 06/05/20 04:23 98 06/05/20 03:41 98
[2020-06-05] MEDS ORDERED: IOTHALAMATE MEGLUMINE II 17.2% 250 ML VIAL INSTIL ONE (12:42)
[2020-06-05] MEDS ORDERED: ONDANSETRON INJ 2 MG/ML 2 ML VIAL ONE (13:08)
--- NOTE | 2020-06-05 13:08 | Post Operative Brief Note ---
PG Immediate Post Op with CF Date of Surgery June 05, 2020 Pre & Post Diagnosis Operation Date: 06/05/20 15:55 <No data on this case meets the specified criteria> Procedure Operation Date: 06/05/20 15:55 <No data on this case meets the specified criteria> Surgeon Calvin Kenny MD
--- NOTE | 2020-06-05 13:08 | History & Physical Bridge Note ---
Date of Service June 05, 2020 History & Physical Bridge Note I have examined the patient, reviewed the History & Physical and in the interval since the performance of the History & Physical I have noted the following changes of clinical significance: no changes noted
--- NOTE | 2020-06-05 13:28 | Post Operative Brief Note ---
PG Immediate Post Op with CF Date of Surgery June 05, 2020 Pre & Post Diagnosis Operation Date: 06/05/20 15:55 Pre-Op Diagnosis: OBSTRUCTIVE UROPATHY Post-Op Diagnosis: OBSTRUCTIVE UROPATHY I identified the patient and participated in the time-out.: Yes Procedure Operation Date: 06/05/20 15:55 Actual Procedures p Cystoscopy, Retrograde Pyelogram, Right Stent Insertion(Right) - Calvin Kenny MD Surgeon Calvin Kenny MD Stemhole Borer none Estimated Blood Loss 0 Findings Consistent with Post-Op Diagnosis
--- NOTE | 2020-06-05 13:43 | Fluoroscopy Report ---
FL retrograde includes kub HISTORY: 74 years-old Male RT CYSTO/STENT right flank pain COMPARISON: CT abdomen and pelvis of same day TECHNIQUE: 4 spot fluoroscopic images of the right abdomen and pelvis were obtained utilizing 39.3 se conds fluoroscopy time. FINDINGS: Right cystourethrogram. Guidewire of the right ureter is noted with subsequent images demonstrating d eployment of a right ureteral stent which appears to be in satisfactory positioning. A radiopaque wir e-like device overlying the right inguinal distribution is likely external to the patient. IMPRESSION: Fluoroscopic assistance as above. ACT 112: Negative or not required by law. The above report was generated using voice recognition software. It may contain grammatical, syntax o r spelling errors. Electronically signed by: Darren Sterling M.D. 06/05/2020 1:42 PM
[2020-06-05] MEDS ORDERED: CONRAY 60% 50 ML VIAL INSTIL ONE (16:30)
--- NOTE | 2020-06-05 16:56 | Anesthesiology Progress Note ---
Date of Service June 05, 2020 Anesthesia Post Procedure Vital Signs Vital Signs: Temp Pulse Pulse Pulse Pulse Resp BP 06/05/20 15:05 36.6 C 90 16 06/05/20 14:39 96 H 16 06/05/20 14:05 38.0 C H 88 16 06/05/20 13:50 90 16 06/05/20 13:40 89 16 06/05/20 13:33 37.6 C H 93 H 16 06/05/20 12:49 36.6 C 96 H 20 06/05/20 07:35 36.7 C 71 18 06/05/20 06:01 62 16 06/05/20 05:27 62 16 06/05/20 04:23 06/05/20 03:41 36.8 C 60 16 141/83 H BP Pulse Ox 06/05/20 15:05 122/68 95 06/05/20 14:39 111/76 95 06/05/20 14:05 116/65 97 06/05/20 13:50 115/62 94 06/05/20 13:40 116/63 98 06/05/20 13:33 121/65 99 06/05/20 12:49 154/74 H 97 06/05/20 07:35 142/67 H 96 06/05/20 06:01 120/69 98 06/05/20 05:27 142/83 H 98 06/05/20 04:23 98 06/05/20 03:41 98 Pain Intensity Right Flank: Pain Intensity: 4 Transfer of Care Handoff Completed per policy Notes Mental Status: alert / awake / arousable and participated in evaluation Patient Amnestic to Procedure: Yes Nausea / Vomiting: adequately controlled Pain: adequately controlled Airway Patency, RR, SpO2: stable & adequate BP & HR: stable & adequate Hydration State: stable & adequate Anesthetic Complications: no major complications apparent and Pt Satisfied with anesthetic care
--- NOTE | 2020-06-05 18:11 | Communication Note ---
Date of Service: June 05, 2020 Pt was seen after his procedure. S/P Cystoscopy, Retrograde Pyelogram, Right Stent Insertion by Dr. Kenny. He said that the pain improves. He said that he is only urinating a little. He would like to go home tonight. Case discussed with Dr. Kenny and Ok from urology stand point to discharge home. Informed the nurse that if patient able to urinate, ok to discharge home. Pt will follow up with urology for stent removal. Pt will call [facility] urology group on Monday for the follow up appointment. Tolerated his diet. Continue pain control and Flomax. MD Henry
--- NOTE | 2020-06-06 07:05 | Electrocardiogram Report ---
Test Reason : Blood Pressure : / mmHG Vent. Rate : 075 BPM Atrial Rate : 075 BPM P-R Int : 218 ms QRS Dur : 110 ms QT Int : 412 ms P-R-T Axes : 063 039 037 degrees QTc Int : 460 ms Sinus rhythm with 1st degree A-V block Incomplete right bundle branch block Borderline ECG No previous ECGs available Confirmed by Sachin Tomas ([id number]) on 06/06/2020 7:04:35 AM Referred By: REFERRED SELF Confirmed By:Sachin Tomas
[2020-06-06] MEDS ORDERED: ASPIRIN 81 MG ECTAB PO SCH (09:00)
--- NOTE | 2020-06-06 12:16 | Operative Report (OR) ---
DATE OF OPERATION: 06/05/2020 PROCEDURE PERFORMED: Cystoscopy and right stent placement. SURGEON: Calvin Kenny MD. ANESTHESIA: Sedation. INDICATIONS: The patient is a 74-year-old male with history of multiple stones who presented the morning of the procedure with a 7-8 mm proximal stone and severe unrelenting pain. Discussed the options including further observation and attempted ureteroscopy, but given that he was not COVID tested, it would have added 40 minutes to his anesthesia and it was unclear whether it would be able to get up to the stone. I opted to give the patient a stent and we will bring him back rather for lithotripsy and/or ureteroscopy with a dilated ureter. DESCRIPTION OF THE PROCEDURE: The patient was taken to the cystoscopy suite. He was given preoperative antibiotics, had Venodyne stockings placed and was given sedation. Cystoscopy was performed. After he was prepped and draped in the usual sterile fashion, he did not have any urethral strictures. He did have an enlarged obstructing prostate with somewhat of a medial lobe. I was able to cannulate the right ureteral orifice, did a retrograde, then passed a guidewire into the proximal ureter beyond the stone and passed a 4.8 x 26 cm stent with a good curl in the renal pelvis and a good curl in the bladder. The bladder was emptied. The patient was transferred to the recovery room in stable condition. I attest to the content of the Intraoperative Record and any orders documented therein. Any exception s are noted below.
[2020-06-07] MEDS ORDERED: LANSOPRAZOLE 15 MG SOLTAB PO SCH (09:00)
--- NOTE | 2020-06-10 18:28 | Discharge Summary ---
Date of Service June 05, 2020 Admission HPI Per Admitting Provider History obtained from patient, family, and records. Medical history significant for duodenal cancer status post Whipple surgery, urolithiasis, prediabetes. This morning patient experienced achy right flank discomfort reminiscent of kidney stone pain with nausea. No hematuria, fever, chills. No chest pain, no S OB. Nonbloody loose stools which has been patient's norm after Whipple surgery decades ago. Patient brought to the ER by . 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 Admission Exam Per Admitting Provider GENERAL: Comfortable, slightly anxious, pleasant, no respiratory distress SKIN: Normal color, warm HEENT: Bespectacled, pink palpebral conjunctivae, no ptosis, dry buccal mucosa NECK : Supple, no tenderness CHEST : CTA, no tenderness HEART : RRR, no obvious murmurs ABDOMEN: Some distention, nontender EXTREMITIES : No LE swelling/tenderness, no other conspicuous deformities noted NEUROLOGIC : Coherent, no facial asymmetry, no other gross focality Principal Diagnosis (1) Acute right flank pain: (2) Right ureteral calculus: (3) Hydronephrosis of right kidney: (4) Renal colic: (5) Duodenal cancer status post Whipple surgery (6) Anemia Discharge Exam General- No acute distress Head- atraumatic Eyes- PERRL, EOMI, ENT- oropharynx clear Neck- supple, no JVD Lungs- clear to auscultation Heart- regular rhythm; no murmur Abdomen- normal bowel sounds, soft, nontender Extremities- no calf tenderness Neuro- alert, oriented x 3; PERRL, EOMI; no facial palsy; no dysarthria Skin- warm & dry Discharge Data Allergies Allergy/AdvReac Type Severity Reaction Status Date / Time iodine Allergy Severe Hives Verified 06/05/20 04:34 erythromycin base Allergy Intermediate Hives Verified 06/05/20 04:34 levofloxacin [From Levaquin] Allergy Intermediate Hives Verified 06/05/20 04:34 oxycodone Allergy Intermediate Hives Verified 06/08/20 13:09 Consultations 06/05/20 06:04 ED Decision to Admit Stat 06/05/20 07:38 Consult Urology Routine Procedures Performed Operation Date: 06/05/20 15:55 Actual Procedures p Cystoscopy, Retrograde Pyelogram, Right Stent Insertion(Right) - Calvin Kenny MD Ordered Studies 06/05/20 03:46 CT abd pelvis wo con Urgent 06/05/20 12:00 FL retrograde includes kub Routine FL retrograde includes kub HISTORY: 74 years-old Male RT CYSTO/STENT right flank pain COMPARISON: CT abdomen and pelvis of same day TECHNIQUE: 4 spot fluoroscopic images of the right abdomen and pelvis were obtained utilizing 39.3 seconds fluoroscopy time. FINDINGS: Right cystourethrogram. Guidewire of the right ureter is noted with subsequent images demonstrating deployment of a right ureteral stent which appears to be in satisfactory positioning. A radiopaque wire-like device overlying the right inguinal distribution is likely external to the patient. IMPRESSION: Fluoroscopic assistance as above. ACT 112: Negative or not required by law. The above report was generated using voice recognition software. It may contain grammatical, syntax or spelling errors. Electronically signed by: Darren Sterling M.D. 06/05/2020 1:42 PM Dictated: 06/05/20 1340 Transcribed: 06/05/20 1340 XR chest 2V PA/lateral CLINICAL HISTORY: pre op COMPARISON STUDY: No previous studies for comparison. FINDINGS: The bones soft tissues and hemidiaphragms are normal. The cardiomediastinal silhouette is normal. The lungs are clear. The pulmonary vasculature is normal. IMPRESSION: Negative chest. ACT 112: Negative or not required by law. The above report was generated using voice recognition software. It may contain grammatical, syntax or spelling errors. Electronically signed by: Robb Abraham M.D. 06/05/2020 12:06 PM Dictated: 06/05/20 1202 Transcribed: 06/05/20 1202 KUB CLINICAL HISTORY: Right ureteral stone. FINDINGS: 2 AP supine abdominal radiographs are correlated with abdominal CT performed earlier the same day 06/05/2020. There is a nonobstructed abdominal bowel gas pattern noting moderate colonic fecal retention. An 8 mm obstructing calculus in the right proximal ureter is again seen at the level of L2. No additional calcifications are identified projecting over either kidney. The skeletal structures are osteopenic and appear intact. Fusion hardware is noted in the lower lumbar spine. Sclerotic change is seen in the sacroiliac joints. IMPRESSION: An 8 mm obstructing calculus in the proximal right ureter is unchanged from previous. Electronically signed by: Rich Levine M.D. 06/05/2020 9:08 AM Dictated: 06/05/20905 Transcribed: 06/05/20905 CT abd pelvis wo con CT DOSE: 846.13 mGy.cm HISTORY: Flank pain right flank pain TECHNIQUE: Multiaxial CT images of the abdomen and pelvis were performed without contrast. A dose lowering technique was utilized adhering to the principles of ALARA. COMPARISON STUDY: None. FINDINGS: The lung bases are clear. There is an the biliary ductal system. Prior postoperative change suggesting a well type procedure. 8 millimeters obstructing calculus proximal right ureter. Right renal hydronephrosis. Mild fullness left renal collecting system. Nonspecific infiltrative changes in the perinephric fat bilaterally. Nonobstructive bowel pattern. Postoperative changes involving the lumbar spine. Bladder is midline. Postoperative changes including scarring of the right inguinal region. No significant pelvic or inguinal adenopathy. IMPRESSION: 1. 8 mm obstructing calculus proximal right ureter. 2. Right hydronephrosis. 3. Additional findings throughout the abdomen and pelvis considered to be pre- existing ACT 112: Negative or not required by law. The above report was generated using voice recognition software. It may contain grammatical, syntax or spelling errors. Electronically signed by: Robb Abraham M.D. 06/05/2020 7:06 AM Dictated: 06/05/20 0702 Transcribed: 06/05/20 07 Hospital Course (1) Acute right flank pain: (2) Right ureteral calculus: (3) Hydronephrosis of right kidney: (4) Renal colic: Present on admission with right flank pain and nausea CT abd/pelvis showed 8 mm obstructing calculus proximal right ureter. Right hydronephrosis. UA showed trace of blood, but negative for nitrite, leukocytes and bacteria Urology on board Plan to proceed with OR for cysto, Right retrograde pyelogram and Right stent placement Continue IV pain meds and IVF Will keep NPO for now Addendum Pt was seen after his procedure. S/P Cystoscopy, Retrograde Pyelogram, Right Stent Insertion by Dr. Kenny. He said that the pain improves. He said that he is only urinating a little. He would like to go home tonight. Case discussed with Dr. Kenny and Ok from urology stand point to discharge home. Informed the nurse that if patient able to urinate, ok to discharge home. Pt will follow up with urology for stent removal. Pt will call [facility] urology group on Monday for the follow up appointment. Tolerated his diet. Continue pain control and Flomax. Duodenal cancer status post Whipple surgery Continue PPI Stable Anemia Hbg 13.4 Continue monitor Prediabetes Recent Hba1c 6.1 on May 2020 Counseling on lifestyle modification DVT px on SCD (Ancipitate surgical prodedure ) CODE STATUS FULL CODE Disposition Patient requesting updates from providers. Ms. Rekha Hall, contact #[phone]. Total Time Total Time Spent Total Time Spent (In Minutes): 35 minutes Total Time Includes: Examination of the Patient, Discharge Planning, Medication Reconciliation, Communication With Other Providers and Other Discharge Plan Discharge Items Patient Disposition: Home - Self-Care Reason For Visit: OBSTRUCTIVE UROPATHY Discharge Diagnosis: (1) Acute right flank pain: (2) Right ureteral calculus: (3) Hydronephrosis of right kidney: (4) Renal colic: Activity: Resume your previous activity Non-emergency contact: Primary Care Provider Call non-emergency contact if: you have any medication questions, your pain is worsening and your temperature is above 101 Follow-up/Referrals: Payam Mary MD [Primary Care Provider] - Diet: Regular Addtl Attending Provider Instructions: Follow up with your primary care provider Dr. Mary in 1 week [facility] for [facility] (Please call the [facility] urology group on Monday to schedule the appointment) Keep yourself hydrate Please hold aspirin and ok to resume on Monday if no blood notes in the urine Continue pain management with Oxycodone Do not drive or operate any machine after taking the oxycodone Please hold next dose of oxycodone if you become drowsy and lethargy Pending Studies at Discharge: No Stand-Alone Forms: My [employer] [facility], Smoking Cessation Medications and DC Order Prescriptions: New tamsulosin [Flomax] 0.4 mg capsule 0.4 mg PO DAILY Qty: 30 RF: 0 phenazopyridine [Pyridium] 100 mg tablet 100 mg PO Q8H PRN (Reason: bladder pain) Qty: 15 RF: 0 Continued multivitamin Tablet 1 tab PO QAM RF: 0 aspirin 81 mg Tablet,Delayed Release (Dr/Ec) 81 mg PO Q OTHER DAY RF: 0 lansoprazole 15 mg Capsule,Delayed Release(Dr/Ec) 15 mg PO 2XWK RF: 0 vitamin B complex Tablet 1 tab PO DAILY RF: 0 cholecalciferol (vitamin D3) [Vitamin D3] 25 mcg (1,000 unit) Tablet 25 mcg PO DAILY RF: 0 Creon 24,000-76,000 -120,000 unit Capsule,Delayed Release(Dr/Ec) 2 cap PO TIDM RF: 0 Theralith XR 3.75-45-45-49.5 mg Tablet Extended Release 2 tab PO AMPM RF: 0 No Action ketorolac 10 mg tablet 10 mg PO BID PRN (Reason: pain) 3 Days Qty: 6 RF: 0 Discharge Orders: Discharge Order (Routine); Ordered 06/05/20 Ordered By: Ramandeep Lopez/Other Patient Handouts: Having a Ureteral Stent, Oxycodone tablets or capsules Admission Data Admit Date/Time: 06/05/20 07:04 Attending Provider: Ramandeep Figueroa Admit Provider: Andrey Ashton Primary Care Provider: Payam Mary Other Providers: Olman Roberts ; Andrey Ashton Other Interventions: Discharge Summary Assessment (RN) Last Done: 06/05/20 20:40
== END 2020-06-05 21:12 | disposition home or self-care (01) ==
LOC: 3W 03:30 → ED 03:30 → 3W 07:27

== ENCOUNTER 2020-06-10 22:30 | Observation (INO) ==
[2020-06-10] MEDS ORDERED: KETOROLAC TROMETHAMINE 15 MG/ML VIAL IV STA (22:46)
[2020-06-10] MEDS ORDERED: SODIUM CHLORIDE 0.9% 1000ML 1,000 ML IV ONE (22:46)
[2020-06-10] MEDS ORDERED: ACETAMINOPHEN 1,000 MG/100 ML VIAL IV STA (22:59)
--- NOTE | 2020-06-10 23:07 | Emergency Department Note ---
History of Present Illness General Chief Complaint: Flank Pain Stated Complaint: FLANK PAIN Time Seen by Provider: 06/10/20 22:46 History of Present Illness Provider Complaint: flank pain Onset (ago): 3 day(s) Pain Consistency: constant Location: R flank Radiation: RLQ Severity: moderate Maximum Pain Intensity: 6 Current Pain Intensity: 6 Quality: + stabbing and + sharp Relieved By: + nothing Associated Symptoms: + dysuria; no nausea, no vomiting, no diarrhea, no fever, no chills, no constipation, no hematemesis, no hematochezia, no melena, no hematuria, no chest pain and no breathing difficulty Treatments prior to arrival: NSAIDs, prescription analgesics and tylenol 74-year-old male presents emergency department for right-sided flank pain. Patient reports that he has a history of multiple kidney stones. He states he had a stent placed by Dr. Kenny on Monday. Patient states since he was discharge he was taking oxycodone but stopped taking those on Monday because he was getting hives. He states he was prescribed Toradol orally by the urology office but he states that it has not been helping. Patient also reports dysu leena. Home Medications Home Medications Medication Instructions Recorded Confirmed Type Creon 2 cap PO TIDM 06/05/20 06/10/20 History Theralith XR 2 tab PO AMPM 06/05/20 06/10/20 History aspirin 81 mg PO Q OTHER DAY 06/05/20 06/10/20 History cholecalciferol (vitamin D3) 25 mcg PO DAILY 06/05/20 06/10/20 History [Vitamin D3] lansoprazole 15 mg PO 2XWK 06/05/20 06/10/20 History multivitamin 1 tab PO QAM 06/05/20 06/10/20 History phenazopyridine [Pyridium] 100 mg PO Q8H PRN #15 tab 06/05/20 06/10/20 Rx tamsulosin [Flomax] 0.4 mg PO DAILY #30 cap 06/05/20 06/10/20 Rx vitamin B complex 1 tab PO DAILY 06/05/20 06/10/20 History ketorolac 10 mg tablet 10 mg PO BID PRN 3 Days #6 tab 06/09/20 06/10/20 Rx Allergies Allergy/AdvReac Type Severity Reaction Status Date / Time iodine Allergy Severe Hives Verified 06/10/20 23:35 erythromycin base Allergy Intermediate Hives Verified 06/10/20 23:35 levofloxacin [From Levaquin] Allergy Intermediate Hives Verified 06/10/20 23:35 oxycodone Allergy Intermediate Hives Verified 06/10/20 23:35 Past Med/Surg History Medical History Acquired absence of other specified parts of digestive tract H/O pancreatic cancer s/p whipple Nephrolithiasis Prediabetes Surgical History H/O knee surgery History of back surgery Social History Smoking Status: Never smoker Second Hand Exposure: No; Hx Alcohol Use: Yes Alcohol type: wine Hx Substance Use: No Preferred Language: Kinyarwanda Communication Ability: Effective 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 Beliefs That Will Affect Care: None Current Living Situation: Spouse Feels Safe at Home: Yes Review of Systems A total of 10 systems reviewed and were otherwise negative Physical Exam Vital Signs: Vital Signs - 24 hr 06/10/20 22:32 06/10/20 23:49 Temperature 37.0 C Temperature Source Oral Pulse Rate 79 Pulse Rate [Right Finger] 64 Respiratory Rate 20 19 Respiratory Effort / Characteristics Non-Labored Respiratory Depth Normal Blood Pressure 157/72 H Blood Pressure [Ri ght Arm] 125/65 Blood Pressure Ro n 100 Blood Pressure Ro n [Right Arm] 85 Pulse Oximetry 97 95 Oxygen Delivery Me thod Room Air Sepsis Recent Feve r Within 48 Hours No Sepsis New/Unexpla ined Change in Men janet Status No Sepsis Action Take n by Nursing No Action Required Physical Exam: Physical Exam GENERAL: He is oriented to person, place, and time. He appears well-developed and well-nourished. He does not appear distressed. HENT: Exam performed. - Head: Normocephalic and atraumatic. - Right Ear: External ear normal. No mastoid tenderness. - Left Ear: External ear normal. No mastoid tenderness. - Mouth/Throat: The oropharynx is clear and moist. No trismus in the jaw. No dental abscesses or uvula swelling. No oropharyngeal exudate or tonsillar abscesses. EYES: Conjunctivae and EOM are normal. Pupils are equal, round, and reactive to light. Right eye exhibits no discharge. Left eye exhibits no discharge. No scleral icterus. NECK: Normal range of motion. Neck supple. No JVD present. No spinous process tenderness present. No carotid bruit present. No rigidity. No tracheal deviation and normal range of motion present. No Brudzinski's sign and no Kernig's sign noted. CV: Normal rate, regular rhythm, normal heart sounds and intact distal pulses. There is no peripheral edema. Palpable radial pulses bue. PULM/CHEST: Effort normal and breath sounds normal. No respiratory distress. No stridor. He has no wheezes. He has no rales. - Chest Wall: He exhibits no tenderness. ABD: The abdomen is soft. Bowel sounds are normal. He has no distension. No mass is present. There is no tenderness. There is no rebound, no guarding, no Oconnor's sign and no tenderness at McBurney's point. Rovsig negative. Right CVA tenderness. MUSC/SKEL: Normal range of motion. There is no peripheral edema, tenderness or deformity. LYMPH: No cervical adenopathy. NEURO: He is alert and oriented to person, place, and time. He has normal strength. No cranial nerve deficit or sensory deficit. Coordination and gait normal. GCS eye subscore is 4. GCS verbal subscore is 5. GCS motor subscore is 6. Cerebellar tests wnl. SKIN: Skin is warm and dry. He is not diaphoretic. PSYCH: He has a normal mood and affect. Behavior is normal. Judgment and thought content normal. Course Course 2246: The patient was evaluated in room B10. A complete history and physical exam was performed. 0028: Vital signs stable. Labs within normal limits. Urinalysis does not show any signs of infection. CT does show a ureteral stent in place with mild right- sided hydroureteronephrosis with periureteral fat stranding. The 8 mm stone that was in the right ureter now appears like in the right lower kidney pole suggesting retrograde migration. I discussed the case with Dr. Bell on-call for urology. He agrees that the patient should be admitted to the medicine service for pain control and then he can see the patient in the morning for possible surgical procedure to remove the stone. [facility]. Administered Medications Discontinued Medications Sodium Chloride (Nss 1000ml) 1,000 mls @ 999 mls/hr IV .Q1H1M ONE Stop: 06/10/20 23:46 Last Infusion: 06/11/20 00:01 Dose: 0 mls/hr Documented by: [id number] Admin: 06/10/20 23:09 Dose: 999 mls/hr Documented by: [id number] Acetaminophen (Ofirmev) 1,000 mg in 100 mls @ 400 mls/hr IV NOW STA Stop: 06/10/20 23:13 Last Infusion: 06/10/20 23:25 Dose: 0 mls/hr Documented by: [id number] Admin: 06/10/20 23:09 Dose: 400 mls/hr Documented by: [id number] Ketorolac Tromethamine (Ketorolac Tromethamine 15 Mg/Ml Vial) 15 mg IV NOW STA Stop: 06/10/20 22:47 Last Admin: 06/10/20 23:10 Dose: Not Given Documented by: [id number] Medical Decision Making Laboratory Data Result diagrams: 06/10/20 23:04 06/10/20 23:04 Lab Results 06/10/20 06/10/20 06/10/20 Range/Units 23:04 23:04 23:04 WBC 7.42 (4.8-10.8) K/uL RBC 4.44 L (4.7-6.1) M/uL Hgb 13.7 L (14.0-18.0) g/dL Hct 39.7 L (42-52) % MCV 89.4 (80-100) fL MCH 30.9 (25-34) pg MCHC 34.5 (32-36) g/dL RDW Std Deviation 44.0 (36.4-46.3) fL RDW Coeff of Temitope 13.3 (11.5-14.5) % Plt Count 220 (130-400) K/uL MPV 8.9 (7.4-10.4) fL Immature Gran % (Auto) 0.1 % Neut % (Auto) 53.5 % Lymph % (Auto) 30.7 % [place] % (Auto) 10.6 % Eos % (Auto) 4.6 % Baso % (Auto) 0.5 % Neut # (Auto) 3.96 (1.4-6.5) K/uL Lymph # (Auto) 2.28 (1.2-3.4) K/uL [place] # (Auto) 0.79 H (0.11-0.59) K/uL Eos # (Auto) 0.34 (0-0.5) K/uL Baso # (Auto) 0.04 (0-0.2) K/uL Immature Gran # (Auto) 0.01 (0.00-0.02) K/uL Sodium 141 (136-145) mmol/L Potassium 4.6 (3.5-5.1) mmol/L Chloride 108 H (98-107) mmol/L Carbon Dioxide 27 (21-32) mmol/L Anion Gap 6.0 (3-11) BUN 18 (7-18) mg/dl Creatinine 1.13 (0.6-1.4) mg/dl Est Cr Clr Drug Dosing 57.4 ml/min Est GFR ( Amer) 72.8 Est GFR (Non-Af Amer) 62.8 BUN/Creatinine Ratio 15.8 (10-20) Glucose 157 H (70-99) mg/dl Calcium 9.3 (8.5-10.1) mg/dl Urine Color Brown Urine Appearance Cloudy A (Clear) Urine pH (4.5-7.5) Ur Specific North 1.024 (1.000-1.060) Urine Protein Positive H (Negative) Urine Glucose (UA) (Negative) Urine Ketones (Negative) Urine Blood (Negative) Urine Nitrite (Negative) Urine Bilirubin (Negative) Urine Urobilinogen (Negative) Ur Leukocyte Esterase (Negative) Urine RBC >30 H (0-4) /hpf Urine WBC >30 H (0-5) /hpf Ur Epithelial Cells 5-10 H (0-5) /lpf Urine Bacteria 1+ H (Negative) Imaging Data Radiologist's Impression: PreliminaryFindingsOnly See Final Report For Complete Findings CT ABDOMEN & PELVIS Without Contrast: Comparison:CT abdomen and pelvis 06/05/20. Interval placement of right ureteral stent, appropriatelypositioned. Mild right-sided hydroureteronephrosiswith periureteral fat stranding. Correlate with urinalysis to exclude urinarytract infection. The previouslyseen 8 mmproximal right ureter stone nowappears located in the right kidneylower pole, suggesting retrograde migration. Left kidneyand collecting systemare normal. Otherwise, no change fromprior CT. Stable postoperative findings. Radiologist: Magy Griffith M.D. Study ready at 23:31 and initial results transmitted at 00:06 [facility] Narrative Vital signs stable. Labs within normal limits. Urinalysis does not show any signs of infection. CT does show a ureteral stent in place with mild right- sided hydroureteronephrosis with periureteral fat stranding. The 8 mm stone that was in the right ureter now appears like in the right lower kidney pole suggesting retrograde migration. I discussed the case with Dr. Bell on-call for urology. He agrees that the patient should be admitted to the medicine service for pain control and then he can see the patient in the morning for possible surgical procedure to remove the stone. [facility]. Impression & Plan Renal colic Discharge Plan Visit Data Chief Complaint: Flank Pain Stated Complaint: FLANK PAIN ED Provider: Alxe Greene Discharge Problem: Renal colic Patient Disposition: Being Evaluated by Hospitalist Discharge Instructions Interventions: ED Discharge Assessment Last Done: 06/11/20 01:25 Forms Stand Alone Forms: My [facility] [employer] Prescriptions Prescriptions: No Action ketorolac 10 mg tablet 10 mg PO BID PRN (Reason: pain) 3 Days Qty: 6 RF: 0 multivitamin Tablet 1 tab PO QAM RF: 0 aspirin 81 mg Tablet,Delayed Release (Dr/Ec) 81 mg PO Q OTHER DAY RF: 0 lansoprazole 15 mg Capsule,Delayed Release(Dr/Ec) 15 mg PO 2XWK RF: 0 vitamin B complex Tablet 1 tab PO DAILY RF: 0 cholecalciferol (vitamin D3) [Vitamin D3] 25 mcg (1,000 unit) Tablet 25 mcg PO DAILY RF: 0 Creon 24,000-76,000 -120,000 unit Capsule,Delayed Release(Dr/Ec) 2 cap PO TIDM RF: 0 Theralith XR 3.75-45-45-49.5 mg Tablet Extended Release 2 tab PO AMPM RF: 0 tamsulosin [Flomax] 0.4 mg capsule 0.4 mg PO DAILY Qty: 30 RF: 0 phenazopyridine [Pyridium] 100 mg tablet 100 mg PO Q8H PRN (Reason: bladder pain) Qty: 15 RF: 0 Referrals Referrals: Doberstein,Payam F., MD [Primary Care Provider] -
[2020-06-10 23:12] LABS: Basophils # (auto) 0.04 K/uL (0-0.2); Basophils % (auto) 0.5 %; Eosinophils # (auto) 0.34 K/uL (0-0.5); Eosinophils % (auto) 4.6 %; Hematocrit (blood only) 39.7 % (42-52); Hemoglobin 13.7 g/dL (14.0-18.0); Immature Granulocytes # (auto) 0.01 K/uL (0.00-0.02); Immature Granulocytes % (auto) 0.1 %; Lymphocytes # (auto) 2.28 K/uL (1.2-3.4); Lymphocytes % (auto) 30.7 %; Mean Corpuscular Hemoglobin 30.9 pg (25-34); Mean Corpuscular Hgb Conc 34.5 g/dL (32-36); Mean Corpuscular Volume 89.4 fL (80-100); Mean Platelet Volume 8.9 fL (7.4-10.4); Monocytes # (auto) 0.79 K/uL (0.11-0.59); Monocytes % (auto) 10.6 %; Neutrophils # (auto) 3.96 K/uL (1.4-6.5); Neutrophils % (auto) 53.5 %; Platelet Count 220 K/uL (130-400); RDW Coefficient of Variation 13.3 % (11.5-14.5); Red Blood Count 4.44 M/uL (4.7-6.1); White Blood Count 7.42 K/uL (4.8-10.8)
[2020-06-10 23:24] LABS: Color Urine Brown; Specific Gravity Urine 1.024 (1.000-1.060)
[2020-06-10 23:25] LABS: Appearance Urine Cloudy (Clear); Protein Urine Positive (Negative); Sulfosalicylic Acid Urine Positive (Negative)
[2020-06-10 23:28] LABS: RBC Urine >30 /hpf (0-4); WBC Urine >30 /hpf (0-5)
[2020-06-10 23:29] LABS: BUN Creatinine Ratio 15.8 (10-20); Bacteria Urine 1+ (Negative); Calcium 9.3 mg/dl (8.5-10.1); Creatinine Clr Calc Pharmacy 57.4 ml/min; Est GFR (African American) 72.8; Est GFR (Non-African American) 62.8; Potassium 4.6 mmol/L (3.5-5.1)
[2020-06-11] MEDS ORDERED: ONDANSETRON INJ 2 MG/ML 2 ML VIAL IV PRN (01:53)
[2020-06-11] MEDS ORDERED: ACETAMINOPHEN 1,000 MG/100 ML VIAL IV PRN (01:53)
[2020-06-11] MEDS ORDERED: POLYETHYLENE (MIRALAX) 17 GM PACK PO PRN (01:53)
[2020-06-11] MEDS ORDERED: KETOROLAC TROMETHAMINE 15 MG/ML VIAL IV PRN (01:53)
[2020-06-11] MEDS ORDERED: CARBOHYDRATES FOR HYPOGLYCEMIA PO PRN (02:30)
[2020-06-11] MEDS ORDERED: DEXTROSE 50% 50 ML SYRINGE IV PRN (02:30)
[2020-06-11] MEDS ORDERED: GLUCOSE 10 TABS/TUBE PO PRN (02:30)
[2020-06-11] MEDS ORDERED: GLUCAGON FOR INJ 1 MG VIAL SQ PRN (02:30)
[2020-06-11] MEDS ORDERED: GLUCOSE 40% GEL 15 GM TUBE PO PRN (02:30)
--- NOTE | 2020-06-11 02:47 | History and Physical Report ---
DATE OF ADMISSION: 06/10/2020 CHIEF COMPLAINT: Right flank pain. HISTORY OF PRESENT ILLNESS: This is a 74-year-old male with past medical history significant for duodenal cancer status post Whipple's procedure, history of urolithiasis, history of prediabetes, comes with right flank pain. The patient recently was admitted and discharged on 06/05/2020. He was admitted for right kidney stone with CAT scan showing 8 mm obstructing calculus at the proximal right ureter, status post cystoscopy and right stent placement and discharged on pain medication. The patient says he could not tolerate the oxycodone, it is causing the hives on his head and the pain medication given in the hospital caused constipation, so he was taking Tylenol. It was not helping much and he states yesterday he took ketorolac 10 mg doses, last night and in the morning, but it is not helping much, so he came here and his labs are unremarkable. UA was ok. CT abdomen and pelvis done, preliminary report shows a stent in place,kidney stone in the right kidney lower pole suggesting retrograde migration. The ER physician spoke with the urologist immersion metalcleaner and advised to control pain and will evaluate the patient in the morning. Currently, the patient received IV Tylenol and IV Toradol in the ER. His pain has subsided. He is resting comfortably and hemodynamically stable. Denies any fever, chills. He is taking Pyridium and it has discolored urine. Denies any fever,chills. Somewhat constipated. No chest pain, no shortness of breath, no cough, no headache, no blurred vision, no earache, no runny nose, no sore throat, no dysphagia. Appetite is okay. Lives with his . ALLERGIES: TO ERYTHROMYCIN, IODINE, LEVAQUIN, BACTRIM. PAST MEDICAL HISTORY: As mentioned above. PAST SURGICAL HISTORY: Appendectomy, back surgery, cystourethroscopy with laser lithotripsy, bilateral meniscal surgery, Whipple's surgery. MEDICATIONS: Currently the patient is on aspirin 81 mg p.o. daily, vitamin D 25 mcg p.o. daily, Creon 2 caps p.o. t.i.d. with meals, ketorolac 10 mg p.o. b.i.d. p.r.n., Prevacid 15mg p.o. 2 times a week, multivitamin 1 tablet p.o. daily, Pyridium p.r.n., Flomax 0.4 mg p.o. daily with vitamin B complex 1 tablet daily, Theralith 2 tablets p.o. a.m. and p.m. FAMILY HISTORY: Significant for father has Alzheimer disease. Mother has history of heart failure and stroke. SOCIAL HISTORY: . Former smoker, drinks 13 standard drinks of alcohol per week. No drug use. REVIEW OF SYMPTOMS: As per HPI. Rest of the symptoms negative. PHYSICAL EXAMINATION: GENERAL: The patient is of moderate build, not in acute distress. VITAL SIGNS: Temperature 37, pulse 64, respiratory rate 19, blood pressure 125/65, oxygen 95% on room air. HEENT: No pallor, no icterus. Pupils equal, round, reactive to light. NECK: No JVD, no neck masses, no carotid bruits. CARDIOVASCULAR: S1, S2 heard. Regular rate and rhythm. No murmur, no gallop. RESPIRATORY SYSTEM: Normal AP diameter. No accessory muscle use. No wheezing, no crackles. ABDOMEN: Soft, bowel sounds present, nontender. No distention, no CVA tenderness, no guarding, no rigidity. CENTRAL NERVOUS SYSTEM: Cranial nerves II-XII grossly intact. Nonfocal. EXTREMITIES: No edema, no erythema. LABORATORY DATA: WBC 7.4, hemoglobin 13.7, hematocrit 39.7, platelets 220. Sodium 141, potassium 4.6, chloride 108, bicarb 27, BUN 18, creatinine 1.1, serum glucose 106, calcium 9.3. Urinalysis: Cloudy, +[address] abdomen and pelvis preliminary report shows stent in place and retrograde migration of the kidney stone in the right side. ASSESSMENT AND PLAN: 1. This is a 74-year-old male who presents with right flank pain, history of kidney stones recently. The patient is status post cystoscopy and stent placement for the 8 mm right proximal ureter calculus . Ct scan done today preliminary report showing the stone has migrated to the right kidney lower pole. Urology notified by the ER, to be evaluated in the morning. The patient does not want any narcotic pain medications. OXYCODONE CAUSED HIVES IN HIS HEAD AND ALSO CONSTIPATION. The patient is started on IV Toradol and IV Tylenol in the ER which improved the pain, which will be continued. Will keep him n.p.o., IV fluids. Consult Urology in a.m. 2. Prediabetes. Insulin sliding scale. 3. History of duodenal cancer, status post Whipple's procedure. 4. Deep venous thrombosis prophylaxis, SCDs. DISPOSITION: Admit to medical floor. Expect to discharge home and follow with family doctor. Level 1 full code. MTDD
[2020-06-11] MEDS ORDERED: Nursing to Pharmacy Communication SCH (07:00)
--- NOTE | 2020-06-11 07:12 | CT Scan Report ---
CT OF THE ABDOMEN AND PELVIS WITHOUT CONTRAST CLINICAL HISTORY: Right flank pain. COMPARISON STUDY: CT of the abdomen and pelvis June 05, 2020. Fluoroscopic images from retrograde exam June 05, 2020. TECHNIQUE: Axial images of the abdomen and pelvis were obtained without IV contrast. Images were revi ewed in the axial, sagittal, and coronal planes. Automated exposure control was utilized for the gabby dy. A dose lowering technique was utilized adhering to the principles of ALARA. FINDINGS: Lung bases are unremarkable. Right ureteral stent is appropriately positioned. Mild right h ydronephrosis has slightly decreased since exam of June 05, 2020. The right-sided urinary calculus is now located within the lower pole of the right kidney, measuring 8 mm. There are no additional uri nary calculi. There are no ureteral calculi or fragments. Note is made of persistent mild right perin ephric and periureteral infiltration. Postoperative findings within the daily hepatis are again noted . Pancreatic glandular atrophy is noted. Evaluation of the abdomen and pelvis is suboptimal on this u nenhanced examination. The spleen and adrenal glands are unremarkable. There is no evidence for a bow el obstruction. There is no lymphadenopathy. Prostate is moderately enlarged. There is bladder wall t hickening. Postoperative findings within the spine are present. Several fat-containing ventral hernia s are present. IMPRESSION: 1. Appropriately positioned right ureteral stent. Mild right hydronephrosis, slightly decreased since prior CT. The 8 mm right ureteral calculus shown on prior exam is now within the lower pole of the r ight kidney. 2. Mild right perinephric and periureteral infiltration which is nonspecific. This could be correlate d with urinalysis. 2. Moderate enlargement of the prostate. Mild bladder wall thickening. ACT 112: Negative or not required by law. Electronically signed by: Jorge Stephenson M.D. 06/11/2020 7:10 AM
[2020-06-11 07:24] LABS: Basophils # (auto) 0.03 K/uL (0-0.2); Basophils % (auto) 0.4 %; Eosinophils # (auto) 0.39 K/uL (0-0.5); Eosinophils % (auto) 5.7 %; Hematocrit (blood only) 37.7 % (42-52); Hemoglobin 12.4 g/dL (14.0-18.0); Immature Granulocytes # (auto) 0.01 K/uL (0.00-0.02); Immature Granulocytes % (auto) 0.1 %; Lymphocytes # (auto) 2.37 K/uL (1.2-3.4); Lymphocytes % (auto) 34.9 %; Mean Corpuscular Hemoglobin 29.5 pg (25-34); Mean Corpuscular Hgb Conc 32.9 g/dL (32-36); Mean Corpuscular Volume 89.8 fL (80-100); Mean Platelet Volume 9.2 fL (7.4-10.4); Monocytes # (auto) 0.76 K/uL (0.11-0.59); Monocytes % (auto) 11.2 %; Neutrophils # (auto) 3.24 K/uL (1.4-6.5); Neutrophils % (auto) 47.7 %; Platelet Count 213 K/uL (130-400); RDW Coefficient of Variation 13.4 % (11.5-14.5); RDW Standard Deviation 44.4 fL (36.4-46.3)
[2020-06-11] MEDS ORDERED: INSULIN ASPART 100 UNITS/ML 3 ML PEN SC SCH (07:30)
[2020-06-11 07:31] LABS: Estimated Average Glucose 131 mg/dl; Hemoglobin A1C 6.2 % (4.5-5.6)
[2020-06-11 07:55] LABS: BUN Creatinine Ratio 19.2 (10-20); Calcium 8.8 mg/dl (8.5-10.1); Creatinine Clr Calc Pharmacy 70.5 ml/min; Est GFR (African American) 93.3; Est GFR (Non-African American) 80.5; Potassium 4.2 mmol/L (3.5-5.1)
--- NOTE | 2020-06-11 08:17 | Hospitalist Progress Note ---
Date of Service June 11, 2020 Assessment & Plan (1) Right ureteral calculus: (2) Acute right flank pain: (3) Renal colic: (4) Encounter for pre-operative examination: (5) Hydronephrosis of right kidney: (6) History of back surgery: (7) H/O knee surgery: ASSESSMENT AND PLAN: 1. This is a 74-year-old male who presents with right flank pain, history of kidney stones recently. The patient is status post cystoscopy and stent placement for the 8 mm right proximal ureter calculus. CT done showing the stone has migrated to the right kidney lower pole. Urology notified by the ER, to be evaluated this morning. The patient does not want any narcotic pain medications. NARCOTIC OXYCODONE CAUSED HIVES ON HIS HEAD AND ALSO CONSTIPATION. The patient was started on IV Toradol and IV Tylenol in the ER which improved the pain. n.p.o., IV fluids. Urology to see, Dr Kenny 2. Prediabetes. SSI. 3. History of duodenal cancer, status post Whipple's procedure. 4. Deep venous thrombosis prophylaxis, SCDs. Labs Checked ROS-No Headache, No Visual Changes, No Nausea, No Vomiting, No Fever, No Chills, No Neck Pain or Stiffness, No Chest Pain, No Palpitations, No SOB, No CHRISTIE, No Cough, No Sputum, No Wheezing, No Abdominal Pain, No Diarrhea, No Hematemesis, No Hemoptysis, No Unexpected Weight Loss, No Flank pain, No Melena, No Hematochezia, No Frequency, No Urgency, No Burning, No Hematuria, No Rashes, No Diaphoresis. Appetite is Normal, +hematuria and Flank Pain Physical Exam Gen-AAO x 3, NAD, Afebrile Head-NCAT, EOMI, PERRLA, Anicteric Sclera, No Posterior Pharyngeal Erythema Neck-Supple, No JVD, No Thyromegaly, No Masses, No LAD, No Bruits Lungs-Clear to Auscultation Bilaterally, No Rales, No Rhonchi, No Wheezing, No Crepitus Chest-No S4, +S1, +S2, No S3, No Murmurs, No Rubs, No Gallops, No Ectopy Abdomen-Soft, Bowel Sounds Present, Non Tender, Non Distended, No Hepatomegaly, No Splenomegaly, No Palpable Masses, No Rebound, No Rigidity, No Guarding Musculoskeletal-Full Range of Motion Bilaterally, No CVAT Extremities-No Cyanosis, No Clubbing, No Edema Nuero-Cranial Nerves II-XII grossly intact, Motor WNL, DTRs WNL, Strength WNL, Non Focal Psych-Normal Mood Admission and Anticipated Discharge Date Admission Date: June 11, 2020 Results & Data Results & Data ([facility]) Vital Signs (Past 12 Hours) Vital Signs Temp Pulse Pulse Resp BP BP Pulse Ox 06/11/20 07:19 36.8 C 60 16 124/70 97 06/11/20 01:46 61 18 149/75 H 96 06/11/20 01:45 36.5 C 76 16 152/81 H 95 06/10/20 23:49 64 19 125/65 95 06/10/20 22:32 37.0 C 79 20 157/72 H 97
[2020-06-11] MEDS: PANCREAZE (LIPASE 10,500U) CAP PO SCH ×2 (08:55→13:18)
[2020-06-11] MEDS ORDERED: CHOLECALCIFEROL 1,000 UNITS 25 MCG TAB PO SCH (09:00)
[2020-06-11] MEDS ORDERED: TAMSULOSIN HCL 0.4 MG CAP PO SCH (09:00)
[2020-06-11] MEDS ORDERED: VITAMIN B COMPLEX TAB PO SCH (09:00)
[2020-06-11] MEDS ORDERED: MULTIVITAMIN TAB PO SCH (09:00)
[2020-06-11] MEDS: INSULIN ASPART 100 UNITS/ML 3 ML PEN SC SCH ×2 (09:39→13:18)
--- NOTE | 2020-06-11 12:50 | Urology Consultation ---
Date of Consultation June 11, 2020 Assessment & Plan (1) Renal colic: (2) Right ureteral calculus: 74yo M who is s/p cysto, right stent placement on 06/05/20 secondary to an 8mm right ureteral stone with hydro admitted with right flank pain -Patient is afebrile, WBC and Cr are stable -Right flank pain has improved -OK to give diet, no intervention planned today -Urine culture pending, recommend treat if positive based on culture sensitivities -Recommend home with pain control, Flomax, oxybutynin prn, and pyridium prn -Patient plans to f/u with Urology in [place] tomorrow, if not, recommend f/u outpatient in our clinic for definitive stone management -OK to discharge home from perspective History of Present Illness Reason for Consultation: flank pain Attending Physician: Chu Ceja, History of Present Illness Patient is a 74yo M with a PMH significant for duodenal cancer s/p Whipple's procedure, nephrolithiasis, and prediabetes who was admitted with right flank pain. Patient is s/p Cysto, right stent placement on 06/05/20 secondary to an 8mm obstructing proximal right ureteral stone. Patient was discharged on 06/05/20 with oxycodone for pain, but he stopped taking this as he developed hives. He was then prescribed Toradol orally by our office, but this did not provide much relief. He presented to the ER with right flank pain and was admitted for pain control. Chart review: Afebrile WBC- 6.80 HgB -12.4 Cr -0.92 UA- >30RBC, >30WBC, 1+Bacteria Urine culture -pending CT abd/pelvis - Appropriately positioned right ureteral stent. Mild right hydronephrosis, slightly decreased since prior CT. The 8 mm right ureteral calculus shown on prior exam is now within the lower pole of the right kidney; Mild right perinephric and periureteral infiltration which is nonspecific. This could be correlated with urinalysis; Moderate enlargement of the prostate. Mild bladder wall thickening. Patient examined at the bedside today. At present, he reports an improvement in his right flank pain. Rates pain a 2/10. He is currently getting IV Tylenol and IV Ketorolac for pain control. He denies fevers or chills. No nausea or vomiting. He has been NPO. Denies gross hematuria. Some dysuria. Feels like he is emptying his bladder completely. No additional urinary symptoms. He sta kayla he has an appointment with a Urologist in [place] tomorrow morning. No additional Urological concerns today Allergies Allergy/AdvReac Type Severity Reaction Status Date / Time iodine Allergy Severe Hives Verified 06/10/20 23:35 erythromycin base Allergy Intermediate Hives Verified 06/10/20 23:35 levofloxacin [From Levaquin] Allergy Intermediate Hives Verified 06/10/20 23:35 oxycodone Allergy Intermediate Hives Verified 06/10/20 23:35 Home Medications Home Medications Medication Instructions Recorded Confirmed Type Creon 2 cap PO TIDM 06/05/20 06/10/20 History Theralith XR 2 tab PO AMPM 06/05/20 06/10/20 History aspirin 81 mg PO Q OTHER DAY 06/05/20 06/10/20 History cholecalciferol (vitamin D3) 25 mcg PO DAILY 06/05/20 06/10/20 History [Vitamin D3] lansoprazole 15 mg PO 2XWK 06/05/20 06/10/20 History multivitamin 1 tab PO QAM 06/05/20 06/10/20 History phenazopyridine [Pyridium] 100 mg PO Q8H PRN #15 tab 06/05/20 06/10/20 Rx tamsulosin [Flomax] 0.4 mg PO DAILY #30 cap 06/05/20 06/10/20 Rx vitamin B complex 1 tab PO DAILY 06/05/20 06/10/20 History ketorolac 10 mg tablet 10 mg PO BID PRN 3 Days #6 tab 06/09/20 06/10/20 Rx oxybutynin chloride 5 mg PO BID PRN #20 tab 06/11/20 Rx polyethylene glycol 3350 [Miralax] 17 g PO DAILY PRN #10 ea 06/11/20 Rx tamsulosin [Flomax] 0.4 mg PO DAILY #10 cap 06/11/20 Rx tramadol [Ultram] 50 mg PO Q8H PRN #30 tab 06/11/20 Rx Patient History Medical History Acquired absence of other specified parts of digestive tract H/O pancreatic cancer s/p whipple Nephrolithiasis Prediabetes Surgical History H/O knee surgery History of back surgery Social History Smoking Status: Never smoker Second Hand Exposure: No; Hx Alcohol Use: Yes Alcohol type: wine Hx Substance Use: No Preferred Language: Ethiopian Communication Ability: Effective Head Sawyer Automatic Required: No Beliefs That Will Affect Care: None Current Living Situation: Spouse Feels Safe at Home: No Is there a partner from a previous relationship who is making you feel unsafe now?: No Review of Systems Review of Systems: All systems reviewed & are unremarkable except as noted in HPI & below Physical Exam Constitutional: well developed and well nourished; no acute distress and not ill appearing Eyes: no eyelid abnormality ENMT: Ears: no hearing impairment Neck: normal visual inspection; no anterior neck swelling Respiratory: normal respiratory effort and able to speak in complete sentences Cardiovascular: Rate/Rhythm: regular rate and regular rhythm Gastrointestinal (Abdomen): Inspection/Auscultation: abdomen normal to inspection; abdomen not distended Musculoskeletal: Head/Neck/Chest: normocephalic Extremities: extremities normal to inspection Skin: no rashes, warm and dry Neurologic: moves all extremities and awake; not confused Psychiatric: Orientation: alert, oriented x 3 and cooperative Results & Data ([facility]) Vital Signs (Past 12 Hours) Vital Signs Temp Pulse Pulse Resp BP BP Pulse Ox 06/11/20 07:19 36.8 C 60 16 124/70 97 06/11/20 01:46 61 18 149/75 H 96 06/11/20 01:45 36.5 C 76 16 152/81 H 95 06/10/20 23:49 64 19 125/65 95 06/10/20 22:32 37.0 C 79 20 157/72 H 97 PG Care Time/CCT Total # of Minutes Spent Total Time Spent with Patient: Total time spent is greater than 50% in coordination of care (as documented) at patient's floor/unit and/or counseling patient: Coding Level of Care Code 99056 Initial Inpt Care Lvl 3 Diagnoses Renal colic N23 Right ureteral calculus N20.1
--- NOTE | 2020-06-11 14:13 | Discharge Summary ---
Date of Service June 11, 2020 Admission HPI Per Admitting Provider 74-year-old male with past medical history significant for duodenal cancer status post Whipple's procedure, history of urolithiasis, history of prediabetes, comes with right flank pain. The patient recently was admitted and discharged on 06/05/2020. He was admitted for right kidney stone with CAT scan showing 8 mm obstructing calculus at the proximal right ureter, status post cystoscopy and right stent placement and discharged on pain medication. The patient says he could not tolerate the oxycodone, it is causing the hives on his head and the pain medication given in the hospital caused constipation, so he was taking Tylenol. It was not helping much and he states yesterday he took ketorolac 10 mg doses, last night and in the morning, but it is not helping much, so he came here and his labs are unremarkable. UA was ok. CT abdomen and pelvis done, preliminary report shows a stent in place,kidney stone in the right kidney lower pole suggesting retrograde migration. The ER physician spoke with the urologist senior integration architect and advised to control pain and will evaluate the patient in the morning. Currently, the patient received IV Tylenol and IV Toradol in the ER. His pain has subsided. He is resting comfortably and hemodynamically stable. Denies any fever, chills. He is taking Pyridium and it has discolored urine. Denies any fever,chills. Somewhat constipated. No chest pain, no shortness of breath, no cough, no headache, no blurred vision, no earache, no runny nose, no sore throat, no dysphagia. Appetite is okay. Lives with his . Admission Exam Per Admitting Provider GENERAL: The patient is of moderate build, not in acute distress. VITAL SIGNS: Temperature 37, pulse 64, respiratory rate 19, blood pressure 125/65, oxygen 95% on room air. HEENT: No pallor, no icterus. Pupils equal, round, reactive to light. NECK: No JVD, no neck masses, no carotid bruits. CARDIOVASCULAR: S1, S2 heard. Regular rate and rhythm. No murmur, no gallop. RESPIRATORY SYSTEM: Normal AP diameter. No accessory muscle use. No wheezing, no crackles. ABDOMEN: Soft, bowel sounds present, nontender. No distention, no CVA tenderness, no guarding, no rigidity. CENTRAL NERVOUS SYSTEM: Cranial nerves II-XII grossly intact. Nonfocal. EXTREMITIES: No edema, no erythema. Principal Diagnosis (1) Right ureteral calculus: (2) Acute right flank pain: (3) Renal colic: (4) Encounter for pre-operative examination: (5) Hydronephrosis of right kidney: (6) History of back surgery: (7) H/O knee surgery: Discharge Exam See Below Discharge Data Allergies Allergy/AdvReac Type Severity Reaction Status Date / Time iodine Allergy Severe Hives Verified 06/10/20 23:35 erythromycin base Allergy Intermediate Hives Verified 06/10/20 23:35 levofloxacin [From Levaquin] Allergy Intermediate Hives Verified 06/10/20 23:35 oxycodone Allergy Intermediate Hives Verified 06/10/20 23:35 Consultations 06/11/20 00:27 ED Decision to Admit Stat 06/11/20 01:53 Consult Case Management - Discharge Planning Routine 06/11/20 08:00 Consult Urology Routine 06/11/20 14:11 Consult Case Management - Discharge Planning Routine Ordered Studies 06/10/20 22:46 CT abd pelvis wo con Urgent Current Diagnoses Unspecified hydronephrosis (06/11/20) Calculus of ureter (06/11/20) Unspecified renal colic (06/11/20) Unspecified abdominal pain (06/11/20) Encounter for other preprocedural examination (06/11/20) Other specified postprocedural states (06/11/20) Allergies iodine Allergy (Severe, Verified 06/10/20 23:35) Hives erythromycin base Allergy (Intermediate, Verified 06/10/20 23:35) Hives levofloxacin [From Levaquin] Allergy (Intermediate, Verified 06/10/20 23:35) Hives oxycodone Allergy (Intermediate, Verified 06/10/20 23:35) Hives Height/Weight/Isolation Height 5 ft 10 in Weight 82.4 kg Chemistry 06/10/20 06/11/20 23:04 06:51 Sodium 141 139 Potassium 4.6 4.2 Chloride 108 H 110 H Carbon Dioxide 27 26 Anion Gap 6.0 3.0 BUN 18 18 Creatinine 1.13 0.92 Glucose 157 H 106 H Urinalysis 06/10/20 23:04 Urine Color Brown Urine Appearance Cloudy A Urine pH Ur Specific Kirklin 1.024 Urine Protein Positive H Urine Glucose (UA) Urine Ketones Urine Blood Urine Nitrite Urine Bilirubin Microbiology 06/10/20 23:04 Urine,Clean Catch Urine Culture - Pending Hospital Course (1) Right ureteral calculus: (2) Acute right flank pain: (3) Renal colic: (4) Encounter for pre-operative examination: (5) Hydronephrosis of right kidney: (6) History of back surgery: (7) H/O knee surgery: ASSESSMENT AND PLAN: 1. This is a 74-year-old male who presents with right flank pain, history of kidney stones recently. The patient is status post cystoscopy and stent placement for the 8 mm right proximal ureter calculus. CT done showing the stone has migrated to the right kidney lower pole. Urology notified by the ER, to be evaluated this morning. The patient does not want any narcotic pain medications. NARCOTIC OXYCODONE CAUSED HIVES ON HIS HEAD AND ALSO CONSTIPATION. The patient was started on IV Toradol and IV Tylenol in the ER which improved the pain. n.p.o., IV fluids. Urology to see, Dr Kenny 2. Prediabetes. SSI. 3. History of duodenal cancer, status post Whipple's procedure. 4. Deep venous thrombosis prophylaxis, SCDs. Seen by CIPRIANO BENDER to DC on Pyridium PRN, Flomax, Pain control, Oxybutinin PRN ROS-No Headache, No Visual Changes, No Nausea, No Vomiting, No Fever, No Chills, No Neck Pain or Stiffness, No Chest Pain, No Palpitations, No SOB, No CHRISTIE, No Cough, No Sputum, No Wheezing, No Abdominal Pain, No Diarrhea, No Hematemesis, No Hemoptysis, No Unexpected Weight Loss, No Flank pain, No Melena, No Hematochezia, No Frequency, No Urgency, No Burning, No Hematuria, No Rashes, No Diaphoresis. Appetite is Normal, Physical Exam Gen-AAO x 3, NAD, Afebrile Head-NCAT, EOMI, PERRLA, Anicteric Sclera, No Posterior Pharyngeal Erythema Neck-Supple, No JVD, No Thyromegaly, No Masses, No LAD, No Bruits Lungs-Clear to Auscultation Bilaterally, No Rales, No Rhonchi, No Wheezing, No Crepitus Chest-No S4, +S1, +S2, No S3, No Murmurs, No Rubs, No Gallops, No Ectopy Abdomen-Soft, Bowel Sounds Present, Non Tender, Non Distended, No Hepatomegaly, No Splenomegaly, No Palpable Masses, No Rebound, No Rigidity, No Guarding Musculoskeletal-Full Range of Motion Bilaterally, No CVAT Extremities-No Cyanosis, No Clubbing, No Edema Nuero-Cranial Nerves II-XII grossly intact, Motor WNL, DTRs WNL, Strength WNL, Non Focal Psych-Normal Mood Total Time Total Time Spent Total Time Spent (In Minutes): 45 mins Total Time Includes: Examination of the Patient, Discharge Planning, Medication Reconciliation and Communication With Other Providers Discharge Plan Discharge Items Patient Disposition: Home - Self-Care Reason For Visit: FLANK PAIN Discharge Diagnosis: (1) Right ureteral calculus: (2) Acute right flank pain: (3) Renal colic: (4) Encounter for pre-operative examination: (5) Hydronephrosis of right kidney: (6) History of back surgery: (7) H/O knee surgery: Condition on Discharge: Good Health Concerns: Bleeding, uncontrolled pain Activity: Resume your previous activity Lifting: None Bathing: No limitations Sexual Activity: When tolerated Exercise/Sports: None Driving/Machine Use: No limitations Weightbearing: Full weightbearing Non-emergency contact: Primary Care Provider and Urologist Call non-emergency contact if: you have any medication questions Follow-up/Referrals: Payam Mary MD [Primary Care Provider] - Diet: Carb Consistent or DM2 and Heart Healthy Addtl Attending Provider Instructions: Take Tylenol 500 mg around the clock every 4 hours while awake, use Ultram and Ketoralac or Motrin for breakthrough pain Pending Studies at Discharge: No Stand-Alone Forms: My [facility], Opioid Pain Management, Smoking Cessation Medications and DC Order Prescriptions: New polyethylene glycol 3350 [Miralax] 17 gram Powder In Packet 17 g PO DAILY PRN (Reason: constipation) Qty: 10 RF: 0 tramadol [Ultram] 50 mg tablet 50 mg PO Q8H PRN (Reason: pain) Qty: 30 RF: 0 oxybutynin chloride 5 mg tablet 5 mg PO BID PRN (Reason: bladder spasms) Qty: 20 RF: 0 tamsulosin [Flomax] 0.4 mg capsule 0.4 mg PO DAILY Qty: 10 RF: 0 Continued ketorolac 10 mg tablet 10 mg PO BID PRN (Reason: pain) 3 Days Qty: 6 RF: 0 multivitamin Tablet 1 tab PO QAM RF: 0 aspirin 81 mg Tablet,Delayed Release (Dr/Ec) 81 mg PO Q OTHER DAY RF: 0 lansoprazole 15 mg Capsule,Delayed Release(Dr/Ec) 15 mg PO 2XWK RF: 0 vitamin B complex Tablet 1 tab PO DAILY RF: 0 cholecalciferol (vitamin D3) [Vitamin D3] 25 mcg (1,000 unit) Tablet 25 mcg PO DAILY RF: 0 Creon 24,000-76,000 -120,000 unit Capsule,Delayed Release(Dr/Ec) 2 cap PO TIDM RF: 0 Theralith XR 3.75-45-45-49.5 mg Tablet Extended Release 2 tab PO AMPM RF: 0 tamsulosin [Flomax] 0.4 mg capsule 0.4 mg PO DAILY Qty: 30 RF: 0 phenazopyridine [Pyridium] 100 mg tablet 100 mg PO Q8H PRN (Reason: bladder pain) Qty: 15 RF: 0 Discharge Orders: Discharge Order (Routine); Ordered 06/11/20 Ordered By: Chu Lopez/Other Patient Handouts: Prediabetes, A1C Admission Data Admit Date/Time: 06/11/20 00:50 Attending Provider: Chu Ceja Admit Provider: Chu Ceja Primary Care Provider: Payam Mary Other Providers: Francisco Gardner ; Calvin Kenny ; Matti Johnson ; Ian Morales I. ; Olman Roberts ; Sussy De Jesus ; Ursula Lewis ; Freddie Bell ; Ida Powers ; Maday Everett ; Jorge Alberto Herbert ; Nicole Funez
[2020-06-12] MEDS ORDERED: ASPIRIN 81 MG ECTAB PO SCH (09:00)
[2020-06-14] MEDS ORDERED: LANSOPRAZOLE 15 MG SOLTAB PO SCH (09:00)
== END 2020-06-11 15:56 | disposition home or self-care (01) ==
LOC: ED 22:30 → 3W 06-11 00:50 → INTOOBSV 06-11 00:50 → 3W 06-11 01:25

== ENCOUNTER 2025-02-14 15:33 | Inpatient (IN) ==
[2025-02-14] MEDS: SODIUM CHLORIDE 0.9% 500 ML IV ONE (15:56)
[2025-02-14] MEDS: ONDANSETRON INJ 2 MG/ML 2 ML VIAL IV STA (15:56)
[2025-02-14] MEDS: KETOROLAC TROMETHAMINE 15 MG/ML VIAL IV STA (15:56)
[2025-02-14 16:05] LABS: Basophils # (auto) 0.04 K/uL (0.00-0.20); Basophils % (auto) 0.4 %; Eosinophils # (auto) 0.14 K/uL (0.00-0.50); Eosinophils % (auto) 1.4 %; Immature Granulocytes # (auto) 0.03 K/uL (0.01-0.20); Immature Granulocytes % (auto) 0.3 %; Lymphocytes # (auto) 1.63 K/uL (1.20-3.40); Lymphocytes % (auto) 15.9 %; Mean Corpuscular Hemoglobin 29.5 pg (25.0-34.0); Mean Corpuscular Hgb Conc 34.2 g/dL (32.0-36.0); Mean Corpuscular Volume 86.2 fL (80.0-100.0); Mean Platelet Volume 9.6 fL (9.4-12.4); Monocytes # (auto) 0.75 K/uL (0.11-0.59); Monocytes % (auto) 7.3 %; Neutrophils # (auto) 7.68 K/uL (1.40-6.50); Neutrophils % (auto) 74.7 %; Platelet Count 219 K/uL (130-400); RDW Coefficient of Variation 13.2 % (11.5-14.5); RDW Standard Deviation 41.4 fL (36.4-46.3); Red Blood Count 4.41 M/uL (4.70-6.10); White Blood Count 10.27 K/ul (4.8-10.8)
[2025-02-14 16:21] LABS: Albumin Level 4.2 gm/dl (3.4-5.0); BUN Creatinine Ratio 15.5 (10-20); Bilirubin Direct 0.1 mg/dl (0-0.2); Bilirubin,Total 0.7 mg/dl (0.2-1.0); Potassium 4.1 mmol/L (3.5-5.1); Total Protein 7.2 gm/dl (6.0-8.3)
[2025-02-14 16:40] LABS: Appearance Urine Clear (Clear); Bacteria Urine Automated None Seen (None Seen); Bilirubin Urine Negative (Negative); Blood Urine 2+ (Negative); Calcium Oxalate Crystals Urine Present (None Prsent); Cast Urine Automated 0-2 /lpf (0-2); Color Urine Yellow; Epithelial Cell Urine Auto 0-2 /hpf (0-2); Glucose Urine UA Negative (Negative); Ketones Urine Trace (Negative); Leukocyte Esterase Urine 1+ (Negative); Nitrite Urine Negative (Negative); Protein Urine Trace (Negative); Specific Gravity Urine 1.021 (1.000-1.030); Urobilinogen Urine Negative (Negative)
--- NOTE | 2025-02-14 16:48 | CT Scan Report ---
See CT ABDOMEN and PELVIS without INTRAVENOUS CONTRAST HISTORY: Abdominal pain TECHNIQUE: CT abdomen and pelvis without contrast. IV CONTRAST: None ENTERIC CONTRAST: None. COMPARISON: CT abdomen pelvis June 21, 2020 FINDINGS: LOWER CHEST: Mild cardiac enlargement and mild coronary calcifications. LIVER: No focal lesion identified in this noncontrast study. Trace pneumobilia. GALLBLADDER/BILIARY: Surgically absent gallbladder. Status post choledochojejunostomy. No significant interval change in the biliary caliber. SPLEEN: Unremarkable. PANCREAS: Redemonstrate postsurgical changes of modified Whipple's. Some disease seen ADRENALS: Unremarkable. KIDNEYS: Obstructing stone measuring 7 mm in the proximal LEFT ureter resulting in moderate upstream hydroureteronephrosis. Additionally there are nonobstructing renal calculi bilaterally measuring up to 6 mm. PERITONEUM/RETROPERITONEUM. No lymphadenopathy by size criteria. No aortic aneurysm. GASTROINTESTINAL: No obstruction. Distal gastrectomy with gastrojejunostomy REPRODUCTIVE: Enlarged prostate gland impinging upon the urinary bladder outlet. URINARY BLADDER mild circumferential wall thickening. No ABDOMINAL WALL: Small inguinal fat-containing hernias. Fat-containing marciano-incisional hernias in the anterior abdomen. BONES: No acute findings. Posterior instrumented fusion L4-5. IMPRESSION: Obstructing stone measuring 7 mm in the proximal LEFT ureter resulting in moderate upstream hydroureteronephrosis. Electronically signed by Vinnie Reich 02-14-2025 4:48 PM
[2025-02-14] MEDS: SODIUM CHLORIDE 0.9% 500 ML IV SCH (17:30)
--- NOTE | 2025-02-14 17:35 | History & Physical Report ---
Date of Service February 14, 2025 Assessment & Plan (1) Left nephrolithiasis: (2) Hydronephrosis concurrent with and due to calculi of kidney and ureter: Plan Mr. Anna is an 79 year old gentleman with DMTII, postal nasal drip, CKD 3a, mild aortiv valve sclerosis, prior duodenal cancer, and prior nephrolithiasis/urolithiasis. Imaging revealed 7mm obstructing left stone with subsequent hydroureteronephrosis. Urology consulted with plans for stent in am. #Left obstructing nephrolithiasis with hydroureteronephrosis. #Calcium oxalate renal calculi #History of kidney stones CT Obstructing stone measuring 7 mm in the proximal LEFT ureter resulting in moderate upstream hydroureteronephrosis. h/o recurrent Kidney stone Calcium oxalate type since the Per OP Dr. Dempsey Notes : 24 hr urorisk done 2 times before, high urine oxalate as the problem. Urine ca++, urine citrate was totally fine. S/p Whipple And has Chronic Diarrhea and this also causes excessive oxalate absorption from the gut and then causes excessive Oxalate in the urine. There is no further treatment option for high urine oxalate at this time Urology consulted Continue IVF NPO midnight for stent likely tomorrow No indication for abx at this time: no leukocytosis, infectious symptoms at this time, UA with calcium oxalate Calcium citrate BID #Type 2 diabetes mellitus with diabetic nephropathy, without long-term current use of insulin ([facility]) A1C 7.0% 10/2024 SSI while admited, hold home po regimen #Hx of PVC #Mild aortic valve sclerosis #History DDfx Stable. Referral to cardiology notes that patient was undergoing lithotripsy procedure and apparently had PVCs which terminated procedure. declined referral monitor on tele and ordered EKG ECHO EF 63%, negative stress for inducible ischemia continue mag supplement ASA 81 EOD, last dose 02/14 #LILO on Chronic kidney disease, stage 3a (HCC) Cr. 1.2-1.3 in OP review, 1.6 on admission (however 1 value 1.5 in 10/2024) Laboratory test done April 2024 was reviewed and shows creatinine of 1.2 and normal GFR. Continue to monitor labs and trend for true assessment of baseline likely obstructive iso renal stone if lilo present, will order urine studies at this time #Mild normocytic anemia Anemia stable since 2020 - possibly a renal anemia Lab results reviewed: Hgb stable baselin ~12 #Prior duodenal adenocarcinoma S/P Whipple's procedure #Pancreatic insufficiency November 2007 at [facility], completed adjuvant chemotherapy with oxaliplatin, 5-Fluorouracil, leucovorin and radiation treatment. No evidence of recurrent disease noted since then. Continue lansoprazole. Continue creon. Monday and Wednesdays DVT SCDs Dispo contingent on Urology intervention NPO midnight Admission and Anticipated Discharge Date Admission Date: Time spent evaluating patient, direct bedside care, chart review, placing orders, interpretation of diagnostic studies, discussion with consultants, patient, and family members, as well as other required patient management activities is 75 minutes. History of Present Illness Chief Complaint: Flank pain Primary Care Provider: Payam Mary MD Mr. Anna is an 79 year old gentleman with DMTII, postal nasal drip, CKD 3a, mild aortiv valve sclerosis, prior duodenal cancer, and prior nephrolithiasis/urolithiasis.presented to [facility] ED due to left flank pain. Patient states that he was in usual state of health until this last evening with left sided flank discomfort started. He reports that he has been without renal colic for almost a year. He has complicated history of calcium oxalate stones since the 1980s. He notes that [facility] His last intervention was an ESWL 01/06 in which the procedure terminated early 2/2 "PVCs with couplets" however patient has no further recurrence. He denies fevers, chills, chest pain, palpitations. He denies dysuria at this time or frequency. He reports improvement in pain from 6/10 to 2/10 since pain medication administration. He currently takes calcium citrate for management per Dr. Morales's suggestion (urologist). In the ED, vitals were notable for BP of 110s-150s, HR of 60s and O2 sat of high 90s on room air Imaging revealed 7mm obstructing left stone in prox ureter EKG ordered ED interventions: NS, Toradol Consultants: Urology Patient to be admitted to ,med/tele for further evaluation and management of obstructing nephrolithasis Allergies Allergy/AdvReac Type Severity Reaction Status Date / Time iodine Allergy Severe Hives Verified 02/14/25 16:49 erythromycin base Allergy Intermediate Hives Verified 02/14/25 16:49 levofloxacin [From Levaquin] Allergy Intermediate Hives Verified 02/14/25 16:49 oxycodone Allergy Intermediate Hives Verified 02/14/25 16:49 Home Medications Medication Instructions Recorded Confirmed Type aspirin 81 mg tablet,delayed 81 mg PO Q OTHER DAY 06/05/20 02/14/25 History release cholecalciferol (vitamin D3) 25 25 mcg PO QDD 06/05/20 02/14/25 History mcg (1,000 unit) tablet (Vitamin D3) lansoprazole 15 mg capsule,delayed 15 mg PO 2XWK 06/05/20 02/14/25 History release eamhix-hloltppw-gegqsoq 2 cap PO TIDM 06/05/20 02/14/25 History 24,000-76,000-120,000 unit capsule,delayed rel (Creon) multivitamin 1 tab PO Q OTHER DAY 06/05/20 02/14/25 History vitamin B complex 1 tab PO Q OTHER DAY 06/05/20 02/14/25 History azelastine 137 mcg (0.1 %) nasal 1 spray intranasal BID PRN Allergy 07/12/23 02/14/25 History spray Symptoms calcium citrate 200 mg PO BIDM 07/12/23 02/14/25 History fluticasone propionate 50 2 spray intranasal DAILY PRN 07/12/23 02/14/25 History mcg/actuation nasal Allergy Symptoms spray,suspension metformin 500 mg tablet,extended 500 mg PO QAM 07/12/23 02/14/25 History release 24 hr magnesium oxide 400 mg PO Q OTHER DAY 02/14/25 02/14/25 History Past Med/Surg History Problem List Hydronephrosis concurrent with and due to calculi of kidney and ureter Left nephrolithiasis Tendonitis of both rotator cuffs Greater trochanteric bursitis of both hips Hydronephrosis of right kidney H/O knee surgery Right ureteral calculus (Acute) History of back surgery L4-L5 fusion Medical History Acquired absence of other specified parts of digestive tract H/O pancreatic cancer 2007--s/p whipple History of basal cell carcinoma History of kidney stones "at least 14 times" History of nephrolithotomy with removal of calculi History of squamous cell carcinoma Nephrolithiasis Prediabetes metformin daily Surgical History History of appendectomy 2007 History of arthroscopy of left knee History of arthroscopy of right knee History of back surgery L4-L5 fusion History of cholecystectomy 2008 during whipple procedure History of colonoscopy History of cystoscopy History of esophagogastroduodenoscopy (EGD) History of hernia surgery History of lithotripsy History of Mohs micrographic surgery for skin cancer History of right cataract extraction History of squamous cell carcinoma excision removed in office History of surgery on left wrist "infection removed" History of tonsillectomy History of tooth extraction History of Whipple procedure History of wisdom tooth extraction Family History Other No family history of adverse response to anesthesia Social History Smoking Status: Never smoker Tobacco Type: Pipe Second Hand Exposure: No; Do You Dip or Chew Tobacco: No; Hx Alcohol Use: Yes Alcohol type: wine and hard liquor Hx Substance Use: No Preferred Language: Hebrew Communication Ability: Effective Stem Cleaning Machine Feeder Required: No Beliefs That Will Affect Care: None Current Living Situation: Spouse Feels Safe at Home: Yes Assistive Devices: Glasses Review of Systems Review of Systems: Constitutional: (-) fever/chills, (-) recent loss of weight, (-) appetite changes, (-) night sweats. Head: (-) headache, (-) dizziness. Eye: (-) blurring of vision, (-) double vision, (-) redness. Ear: (-) hearing loss, (-) discharge, (-) vertigo Nose: (-) discharge, (-) bleeding, (-) congestion, (-) post nasal drip. Throat: (-) sore throat, (-) hoarseness of voice, (-) odynophagia. Cardiovascular: (-) chest pain, (-) palpitations, (-) syncope, (-) orthopnea, (- ) PND, (-) leg swelling. Respiratory: (-) shortness of breath, (-) cough, (-) wheezing, (-) hemoptysis. Neuro: (-) weakness in extremities, (-) numbness, (-) tingling, (-) tremor. Gastrointestinal: (-) belly pain, (-) belly distension, (+) nausea, (-) vomiting, (++) diarrhea chronic, (-) constipation Genitourinary: (-) hematuria, (-) dysuria, (-) polyuria, (-) hesitancy, (-) freq uency, (-) urinary incontinence. Musculoskeletal: (-) myalgia, (-) arthralgia. Skin: (-) rashes. Endocrine: (-) heat/cold intolerance. Psychiatry: (-) depression, (-) hallucination. Physical Exam Physical Exam: GENERAL APPEARANCE: AxOx4, generally well-appearing male HEENT: NC, AT. MMM. EOMI, clear conjunctiva, oropharynx clear. NECK: Supple without lymphadenopathy. No stiffness or restricted ROM. HEART: Normal rate and regular rhythm, normal S1/S1, no m/r/g LUNGS: CTAB, moving air well. No crackles or wheezes are heard. ABDOMEN: Soft, nontender, nondistended with good bowel sounds heard. BACK: ++ L CVAT, no obvious deformity. EXTREMITIES: Without cyanosis, clubbing or edema. NEUROLOGICAL: Grossly nonfocal. Alert and oriented, moving all 4 extremities. CN not formally tested but appear grossly intact. Skin: Warm and dry without any rash. Results & Data Results & Data Vital Signs (Past 12 Hours) Vital Signs Temp Pulse Resp BP Pulse Ox O2 Del Method 02/14/25 16:36 60 16 115/58 L 98 02/14/25 16:18 63 19 121/90 97 02/14/25 15:51 69 02/14/25 15:49 97 02/14/25 15:35 36.6 C 72 18 153/69 H 99 Room Air Laboratory Results Short CBC 02/14/25 Range/Units 15:45 WBC 10.27 (4.8-10.8) K/ul Hgb 13.0 L (14.0-18.0) g/dl Hct 38.0 L (42.0-52.0) % Plt Count 219 (130-400) K/uL BMP 02/14/25 15:45 Sodium 136 Potassium 4.1 Chloride 104 Carbon Dioxide 28 BUN 25 H Creatinine 1.61 H Glucose 156 H Calcium 9.0 Liver Function 02/14/25 Range/Units 15:45 Total Bilirubin 0.7 (0.2-1.0) mg/dl Direct Bilirubin 0.1 (0-0.2) mg/dl AST 19 (13-39) U/L ALT 14 (7-52) U/L Alkaline Phosphatase 52 (34-104) U/L Albumin 4.2 (3.4-5.0) gm/dl Urine 02/14/25 Range/Units 16:16 Urine Color Yellow Urine Appearance Clear (Clear) Urine pH 5.0 (4.5-7.5) Ur Specific [place] 1.021 (1.000-1.030) Urine Protein Trace H (Negative) Urine Glucose (UA) Negative (Negative) Diagnostic Findings Abdomen/Pelvis CT 02/14/25 15:[address] ABDOMEN and PELVIS without INTRAVENOUS CONTRAST HISTORY: Abdominal pain TECHNIQUE: CT abdomen and pelvis without contrast. IV CONTRAST: None ENTERIC CONTRAST: None. COMPARISON: CT abdomen pelvis June 21, 2020 FINDINGS: LOWER CHEST: Mild cardiac enlargement and mild coronary calcifications. LIVER: No focal lesion identified in this noncontrast study. Trace pneumobilia. GALLBLADDER/BILIARY: Surgically absent gallbladder. Status post choledochojejunostomy. No significant interval change in the biliary caliber. SPLEEN: Unremarkable. PANCREAS: Redemonstrate postsurgical changes of modified Whipple's. Some disease seen ADRENALS: Unremarkable. KIDNEYS: Obstructing stone measuring 7 mm in the proximal LEFT ureter resulting in moderate upstream hydroureteronephrosis. Additionally there are nonobstructing renal calculi bilaterally measuring up to 6 mm. PERITONEUM/RETROPERITONEUM. No lymphadenopathy by size criteria. No aortic aneurysm. GASTROINTESTINAL: No obstruction. Distal gastrectomy with gastrojejunostomy REPRODUCTIVE: Enlarged prostate gland impinging upon the urinary bladder outlet. URINARY BLADDER mild circumferential wall thickening. No ABDOMINAL WALL: Small inguinal fat-containing hernias. Fat-containing marciano-incisional hernias in the anterior abdomen. BONES: No acute findings. Posterior instrumented fusion L4-5. IMPRESSION: Obstructing stone measuring 7 mm in the proximal LEFT ureter resulting in moderate upstream hydroureteronephrosis. Electronically signed by Vinnie Reich 02-14-2025 4:48 PM Medications Administered Home Medications Medication Instructions Recorded Confirmed Last Taken aspirin 81 mg tablet,delayed 81 mg PO Q OTHER DAY 06/05/20 02/14/25 02/13/25 release cholecalciferol (vitamin D3) 25 25 mcg PO QDD 06/05/20 02/14/25 02/13/25 mcg (1,000 unit) tablet (Vitamin D3) lansoprazole 15 mg capsule,delayed 15 mg PO 2XWK 06/05/20 02/14/25 02/12/25 release rhneqk-xlojwkxs-tbixloh 2 cap PO TIDM 06/05/20 02/14/25 02/14/25 08:00 24,000-76,000-120,000 unit capsule,delayed rel (Creon) multivitamin 1 tab PO Q OTHER DAY 06/05/20 02/14/25 02/13/25 vitamin B complex 1 tab PO Q OTHER DAY 06/05/20 02/14/25 02/13/25 azelastine 137 mcg (0.1 %) nasal 1 spray intranasal BID PRN Allergy 07/12/23 02/14/25 Unknown spray Symptoms calcium citrate 200 mg PO BIDM 07/12/23 02/14/25 02/13/25 fluticasone propionate 50 2 spray intranasal DAILY PRN 07/12/23 02/14/25 Unknown mcg/actuation nasal Allergy Symptoms spray,suspension metformin 500 mg tablet,extended 500 mg PO QAM 07/12/23 02/14/25 02/14/25 release 24 hr magnesium oxide 400 mg PO Q OTHER DAY 02/14/25 02/14/25 02/13/25
[2025-02-14] MEDS: TAMSULOSIN HCL 0.4 MG CAP PO ONE (18:45)
[2025-02-14] MEDS: TAMSULOSIN HCL 0.4 MG CAP PO SCH (18:46)
--- NOTE | 2025-02-14 19:42 | Anesthesiology Consultation ---
Date of Service February 14, 2025 Assessment & Plan Chart Review Chart Review: Acceptable Risk for Surgery Consults Requested none History Surgery Operation Date: 02/15/25 07:30 Proposed Procedures p Cystoscopy Retrograde(Left) - Darren Gross MD Height/Weight Height: 5 ft 9 in Weight: 73.7 kg Allergies Allergy/AdvReac Type Severity Reaction Status Date / Time iodine Allergy Severe Hives Verified 02/14/25 16:49 erythromycin base Allergy Intermediate Hives Verified 02/14/25 16:49 levofloxacin [From Levaquin] Allergy Intermediate Hives Verified 02/14/25 16:49 oxycodone Allergy Intermediate Hives Verified 02/14/25 16:49 Medications Home Medications Medication Instructions Recorded Confirmed Last Taken aspirin 81 mg tablet,delayed 81 mg PO Q OTHER DAY 06/05/20 02/14/25 02/13/25 release cholecalciferol (vitamin D3) 25 25 mcg PO QDD 06/05/20 02/14/25 02/13/25 mcg (1,000 unit) tablet (Vitamin D3) lansoprazole 15 mg capsule,delayed 15 mg PO 2XWK 06/05/20 02/14/25 02/12/25 release ezlpjk-hugzqqdb-gpwoggo 2 cap PO TIDM 06/05/20 02/14/25 02/14/25 08:00 24,000-76,000-120,000 unit capsule,delayed rel (Creon) multivitamin 1 tab PO Q OTHER DAY 06/05/20 02/14/25 02/13/25 vitamin B complex 1 tab PO Q OTHER DAY 06/05/20 02/14/25 02/13/25 azelastine 137 mcg (0.1 %) nasal 1 spray intranasal BID PRN Allergy 07/12/23 02/14/25 Unknown spray Symptoms calcium citrate 200 mg PO BIDM 07/12/23 02/14/25 02/13/25 fluticasone propionate 50 2 spray intranasal DAILY PRN 07/12/23 02/14/25 Unknown mcg/actuation nasal Allergy Symptoms spray,suspension metformin 500 mg tablet,extended 500 mg PO QAM 07/12/23 02/14/25 02/14/25 release 24 hr magnesium oxide 400 mg PO Q OTHER DAY 02/14/25 02/14/25 02/13/25 Active Medications Generic Name Dose Route Start Last Admin Trade Name Freq PRN Reason Stop Dose Admin Sodium Chloride 500 mls @ 125 mls/hr 02/14/25 17:15 02/14/25 17:30 Nss IV 02/15/25 17:14 125 mls/hr .Q4H ANN Administration Tamsulosin HCl 0.4 mg 02/14/25 18:15 02/14/25 18:46 Tamsulosin Hcl 0.4 Mg Cap PO 03/16/25 18:14 Not Given QAM [facility] Past Medical History Medical History Acquired absence of other specified parts of digestive tract H/O pancreatic cancer 2007--s/p whipple History of basal cell carcinoma History of kidney stones "at least 14 times" History of nephrolithotomy with removal of calculi History of squamous cell carcinoma Nephrolithiasis Prediabetes metformin daily Past Family History Family History Other No family history of adverse response to anesthesia Past Surgical History Surgical History History of appendectomy 2006 History of arthroscopy of left knee History of arthroscopy of right knee History of back surgery L4-L5 fusion History of cholecystectomy 2007 during whipple procedure History of colonoscopy History of cystoscopy History of esophagogastroduodenoscopy (EGD) History of hernia surgery History of lithotripsy History of Mohs micrographic surgery for skin cancer History of right cataract extraction History of squamous cell carcinoma excision removed in office History of surgery on left wrist "infection removed" History of tonsillectomy History of tooth extraction History of Whipple procedure History of wisdom tooth extraction Social History Smoking Status: Never smoker tobacco type: pipe Do You Dip or Chew Tobacco: No Hx Alcohol Use: Yes Alcohol type: wine and hard liquor alcohol intake frequency: 0-2 drinks per day Hx Substance Use: No substance use type: does not use Physical Exam Vital Signs Last Vital Signs Temp 36.6 C 02/14/25 15:35 Pulse 63 02/14/25 19:11 Resp 20 02/14/25 19:11 BP 130/66 02/14/25 19:11 Pulse Ox 97 02/14/25 19:11 O2 Del Method Room Air 02/14/25 19:11 Testing Laboratory Results 02/14/25 15:45 02/14/25 15:45 Urine Color Yellow 02/14/25 16:16 Urine Appearance Clear (Clear) 02/14/25 16:16 Urine pH 5.0 (4.5-7.5) 02/14/25 16:16 Ur Specific [place] 1.021 (1.000-1.030) 02/14/25 16:16 Urine Protein Trace (Negative) H 02/14/25 16:16 Urine Glucose (UA) Negative (Negative) 02/14/25 16:16 Urine Ketones Trace (Negative) H 02/14/25 16:16 Urine Nitrite Negative (Negative) 02/14/25 16:16 Ur Leukocyte Esterase 1+ (Negative) H 02/14/25 16:16 Urine WBC (Auto) 6-10 /hpf (0-5) H 02/14/25 16:16 Urine RBC (Auto) 6-10 /hpf (0-2) H 02/14/25 16:16 U Hyaline Cast (Auto) 0-2 /lpf (0-2) 02/14/25 16:16 U Epithel Cells (Auto) 0-2 /hpf (0-2) 02/14/25 16:16 Urine Bacteria (Auto) None Seen (None Seen) 02/14/25 16:16
[2025-02-14] MEDS ORDERED: AZELASTINE HCL 0.1% NASAL 200 SPRAYS/27,400 MCG BTL NAE PRN (20:15)
[2025-02-14] MEDS ORDERED: ONDANSETRON INJ 2 MG/ML 2 ML VIAL IV PRN (20:15)
[2025-02-14] MEDS ORDERED: DEXTROSE 50% 50 ML SYRINGE IV PRN (20:15)
[2025-02-14] MEDS ORDERED: CARBOHYDRATES FOR HYPOGLYCEMIA PO PRN (20:15)
[2025-02-14] MEDS ORDERED: GLUCOSE 10 TAB/TUBE PO PRN (20:15)
[2025-02-14] MEDS ORDERED: HYDROmorphone INJ 1 MG/ML SYRINGE IV PRN (20:15)
[2025-02-14] MEDS ORDERED: GLUCOSE 40% GEL 15 GM TUBE PO PRN (20:15)
[2025-02-14] MEDS ORDERED: GLUCAGON FOR INJ 1 MG VIAL SQ PRN (20:15)
[2025-02-14] MEDS ORDERED: KETOROLAC TROMETHAMINE 15 MG/ML VIAL IM PRN (20:32)
--- NOTE | 2025-02-14 20:43 | Emergency Department Note ---
History of Present Illness General Chief Complaint: Kidney Stone Stated Complaint: KIDNEY STONE Time Seen by Provider: 02/14/25 15:47 History of Present Illness Provider Complaint: flank pain Onset (ago): 1 day(s) Pain Consistency: intermittent Location: L flank Radiation: LLQ Severity: moderate Maximum Pain Intensity: 7 Quality: + cramping, + stabbing and + sharp Relieved By: + nothing Exacerbated By: + nothing Context: + history of similar episodes (Feels like previous kidney stones); no foreign travel, no possible food poisoning, no sick contacts, no recent antibiotic use, no recent surgery/procedure or no recent injury Associated Symptoms: + hematuria; no nausea, no vomiting, no diarrhea, no fever, no chills, no constipation, no dysuria, no hematemesis, no hematochezia, no melena, no headache, no chest pain and no breathing difficulty Home Medications Medication Instructions Recorded Confirmed Type aspirin 81 mg tablet,delayed 81 mg PO Q OTHER DAY 06/05/20 02/14/25 History release cholecalciferol (vitamin D3) 25 25 mcg PO QDD 06/05/20 02/14/25 History mcg (1,000 unit) tablet (Vitamin D3) lansoprazole 15 mg capsule,delayed 15 mg PO 2XWK 06/05/20 02/14/25 History release fubmet-sixxraqs-blatdzq 2 cap PO TIDM 06/05/20 02/14/25 History 24,000-76,000-120,000 unit capsule,delayed rel (Creon) multivitamin 1 tab PO Q OTHER DAY 06/05/20 02/14/25 History vitamin B complex 1 tab PO Q OTHER DAY 06/05/20 02/14/25 History azelastine 137 mcg (0.1 %) nasal 1 spray intranasal BID PRN Allergy 07/12/23 02/14/25 History spray Symptoms calcium citrate 200 mg PO BIDM 07/12/23 02/14/25 History fluticasone propionate 50 2 spray intranasal DAILY PRN 07/12/23 02/14/25 History mcg/actuation nasal Allergy Symptoms spray,suspension metformin 500 mg tablet,extended 500 mg PO QAM 07/12/23 02/14/25 History release 24 hr magnesium oxide 400 mg PO Q OTHER DAY 02/14/25 02/14/25 History Allergies Allergy/AdvReac Type Severity Reaction Status Date / Time iodine Allergy Severe Hives Verified 02/14/25 16:49 erythromycin base Allergy Intermediate Hives Verified 02/14/25 16:49 levofloxacin [From Levaquin] Allergy Intermediate Hives Verified 02/14/25 16:49 oxycodone Allergy Intermediate Hives Verified 02/14/25 16:49 Past Med/Surg History Problem List LILO (acute kidney injury) (Acute) Hydronephrosis concurrent with and due to calculi of kidney and ureter (Acute) Left nephrolithiasis Tendonitis of both rotator cuffs Greater trochanteric bursitis of both hips Hydronephrosis of right kidney H/O knee surgery Right ureteral calculus (Acute) History of back surgery L4-L5 fusion Medical History History of nephrolithotomy with removal of calculi History of basal cell carcinoma History of squamous cell carcinoma History of kidney stones "at least 14 times" Prediabetes metformin daily H/O pancreatic cancer 2008--s/p whipple Nephrolithiasis Acquired absence of other specified parts of digestive tract Surgical History History of right cataract extraction History of surgery on left wrist "infection removed" History of arthroscopy of left knee History of arthroscopy of right knee History of cystoscopy History of lithotripsy History of colonoscopy History of esophagogastroduodenoscopy (EGD) History of hernia surgery History of appendectomy 2006 History of cholecystectomy 2007 during whipple procedure History of squamous cell carcinoma excision removed in office History of Mohs micrographic surgery for skin cancer History of Whipple procedure History of tooth extraction History of wisdom tooth extraction History of tonsillectomy Family History Other No family history of adverse response to anesthesia Social History Smoking Status: Never smoker Tobacco Type: Pipe Second Hand Exposure: No; Do You Dip or Chew Tobacco: No; Hx Alcohol Use: Yes Alcohol type: wine and hard liquor Hx Substance Use: No Preferred Language: Russian Communication Ability: Effective 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 Beliefs That Will Affect Care: None Current Living Situation: Spouse Feels Safe at Home: Yes Assistive Devices: Glasses Physical Exam 2 Vital Signs: Vital Signs - 24 hr 02/14/25 15:35 02/14/25 15:49 02/14/25 15:51 Temperature 36.6 C Temperature Source Temporal Artery Sc an Pulse Rate 72 69 Pulse Rate from Sp O2 Sensor Respiratory Rate 18 Blood Pressure 153/69 H Blood Pressure Ro n 97 Pulse Oximetry 99 97 Oxygen Delivery Me thod Room Air Sepsis Recent Feve r Within 48 Hours No Sepsis New/Unexpla ined Change in Men janet Status N/A Sepsis Action Take n by Nursing No Action Required 02/14/25 16:18 02/14/25 16:36 02/14/25 17:18 Temperature Temperature Source Pulse Rate 63 60 67 Pulse Rate from Sp O2 Sensor 58 L 60 68 Respiratory Rate 19 16 20 Blood Pressure 121/90 115/58 L 117/64 Blood Pressure Ro n 100 77 81 Pulse Oximetry 97 98 98 Oxygen Delivery Me thod Sepsis Recent Feve r Within 48 Hours Sepsis New/Unexpla ined Change in Men janet Status Sepsis Action Take n by Nursing 02/14/25 18:00 Temperature Temperature Source Pulse Rate 61 Pulse Rate from Sp O2 Sensor 61 Respiratory Rate 17 Blood Pressure 126/66 Blood Pressure Ro n 86 Pulse Oximetry 97 Oxygen Delivery Me thod Sepsis Recent Feve r Within 48 Hours Sepsis New/Unexpla ined Change in Men janet Status Sepsis Action Take n by Nursing Physical Exam: Physical Exam GENERAL: oriented to person, place, and time. appears well-developed and well- nourished. She does not appear distressed. HENT: Exam performed. -Head: Normocephalic and atraumatic. -Right Ear: External ear normal. No mastoid erythema -Left Ear: External ear normal. No mastoid erythema -Mouth/Throat: The oropharynx is clear and moist. No trismus in the jaw. No dental abscesses or uvula swelling. No oropharyngeal exudate or tonsillar abscesses. EYES: Conjunctivae and EOM are normal.Right eye exhibits no discharge. Left eye exhibits no discharge. No scleral icterus. NECK: Normal range of motion. Neck supple. No JVD present. No tracheal deviation and normal range of motion present. CV: Normal rate, regular rhythm, normal heart sounds and intact distal pulses. There is no peripheral edema. Palpable radial pulses bue. PULM/CHEST: Effort normal and breath sounds normal. No respiratory distress. No stridor. no wheezes.no rales. -Chest Wall: no tenderness to palpation ABD: The abdomen is soft. Bowel sounds are normal. no distension. No mass is present. There is no tenderness. There is no rebound, no guarding, no Oconnor's sign and no tenderness at McBurney's point. Rovsig negative MUSC/SKEL: Normal range of motion. There is no peripheral edema, tenderness or deformity. NEURO: Motor and sensation grossly intact. SKIN: Skin is warm and dry. not diaphoretic. PSYCH: normal mood and affect. Behavior is normal. Judgment and thought content normal. Course Course 1547: The patient was evaluated in room A12. A complete history and physical exam was performed Cardiac monitoring: An order was placed for continuous cardiac monitoring. The monitor shows a rate of 80 with sinus rhythm interpreted by me 1711: Vital signs stable.Labs showed creatinine of 1.61 up from patient's baseline. Urinalysis is not concerning for infection. Imaging shows obstructing 7 mm stone in the proximal left ureter without hydronephrosis. Patient will be admitted to the medicine team. Discussed case with Dr. Gross on-call urology via [facility] text will evaluate the patient in the morning. Administered Medications Acetaminophen (Acetaminophen 500 Mg Tab) 1,000 mg PO Q8H ANN Stop: 03/16/25 20:14 Last Admin: 02/14/25 20:44 Dose: 1,000 mg Documented By: MED Sodium Chloride (Nss) 500 mls @ 125 mls/hr IV .Q4H ANN Stop: 02/15/25 17:14 Last Admin: 02/14/25 17:30 Dose: 125 mls/hr Documented By: ELLY Tamsulosin HCl (Tamsulosin Hcl 0.4 Mg Cap) 0.4 mg PO QAM ANN Stop: 03/16/25 18:14 Last Admin: 02/14/25 18:46 Dose: Not Given Documented By: ELLY Discontinued Medications Acetaminophen (Acetaminophen 500 Mg Tab) Confirm Administered Dose 1,000 mg .ROUTE .STK-MED ONE Stop: 02/14/25 20:22 Last Admin: 02/14/25 20:44 Dose: Not Given Documented By: MED Sodium Chloride (Nss) 500 mls @ 999 mls/hr IV .Q31M ONE Stop: 02/14/25 16:17 Last Infusion: 02/14/25 17:30 Dose: Infused Documented By: Admin: 02/14/25 15:56 Dose: 999 mls/hr Documented By: HUONG Ketorolac Tromethamine (Ketorolac Tromethamine 15 Mg/Ml Vial) 15 mg IV NOW STA Stop: 02/14/25 15:48 Last Admin: 02/14/25 15:56 Dose: 15 mg Documented By: HUONG Ondansetron HCl (Ondansetron Inj 2 Mg/Ml 2 Ml Vial) 4 mg IV NOW STA Stop: 02/14/25 15:48 Last Admin: 02/14/25 15:56 Dose: 4 mg Documented By: HUONG Tamsulosin HCl (Tamsulosin Hcl 0.4 Mg Cap) 0.4 mg PO NOW ONE Stop: 02/14/25 18:09 Last Admin: 02/14/25 18:45 Dose: 0.4 mg Documented By: ELLY Medical Decision Making Laboratory Data Attestation: I reviewed the patient's lab results. 02/14/25 15:45 02/14/25 15:45 Lab Results 02/14/25 02/14/25 Range/Units 15:45 16:16 WBC 10.27 (4.8-10.8) K/ul RBC 4.41 L (4.70-6.10) M/uL Hgb 13.0 L (14.0-18.0) g/dl Hct 38.0 L (42.0-52.0) % MCV 86.2 (80.0-100.0) fL MCH 29.5 (25.0-34.0) pg MCHC 34.2 (32.0-36.0) g/dL RDW Std Deviation 41.4 (36.4-46.3) fL RDW Coeff of Temitope 13.2 (11.5-14.5) % Plt Count 219 (130-400) K/uL MPV 9.6 (9.4-12.4) fL Immature Gran % (Auto) 0.3 % Neut % (Auto) 74.7 % Lymph % (Auto) 15.9 % Ferry % (Auto) 7.3 % Eos % (Auto) 1.4 % Baso % (Auto) 0.4 % Neut # (Auto) 7.68 H (1.40-6.50) K/uL Lymph # (Auto) 1.63 (1.20-3.40) K/uL Ferry # (Auto) 0.75 H (0.11-0.59) K/uL Eos # (Auto) 0.14 (0.00-0.50) K/uL Baso # (Auto) 0.04 (0.00-0.20) K/uL Immature Gran # (Auto) 0.03 (0.01-0.20) K/uL Sodium 136 (136-145) mmol/L Potassium 4.1 (3.5-5.1) mmol/L Chloride 104 (98-107) mmol/L Carbon Dioxide 28 (21-32) mmol/L Anion Gap 4 (3-11) BUN 25 H (6-23) mg/dl Creatinine 1.61 H (0.6-1.4) mg/dl Est Cr Clr Drug Dosing 36.0 ml/min eGFR 42.70 BUN/Creatinine Ratio 15.5 (10-20) Glucose 156 H (70-99(Fasting)) mg/dl Calcium 9.0 (8.6-10.3) mg/dl Total Bilirubin 0.7 (0.2-1.0) mg/dl Direct Bilirubin 0.1 (0-0.2) mg/dl AST 19 (13-39) U/L ALT 14 (7-52) U/L Alkaline Phosphatase 52 (34-104) U/L Total Protein 7.2 (6.0-8.3) gm/dl Albumin 4.2 (3.4-5.0) gm/dl Lipase 4 L (11-82) U/L Urine Color Yellow Urine Appearance Clear (Clear) Urine pH 5.0 (4.5-7.5) Ur Specific Holl[place] 1.021 (1.000-1.030) Urine Protein Trace H (Negative) Urine Glucose (UA) Negative (Negative) Urine Ketones Trace H (Negative) Urine Blood 2+ H (Negative) Urine Nitrite Negative (Negative) Urine Bilirubin Negative (Negative) Urine Urobilinogen Negative (Negative) Ur Leukocyte Esterase 1+ H (Negative) Urine WBC (Auto) 6-10 H (0-5) /hpf Urine RBC (Auto) 6-10 H (0-2) /hpf U Hyaline Cast (Auto) 0-2 (0-2) /lpf U Epithel Cells (Auto) 0-2 (0-2) /hpf Urine Bacteria (Auto) None Seen (None Seen) Calcium Oxalate Crystal Present A (None Prsent) Imaging Data Radiologist's Impression: Abdomen/Pelvis CT 02/14/25 15:[address] ABDOMEN and PELVIS without INTRAVENOUS CONTRAST HISTORY: Abdominal pain TECHNIQUE: CT abdomen and pelvis without contrast. IV CONTRAST: None ENTERIC CONTRAST: None. COMPARISON: CT abdomen pelvis June 21, 2020 FINDINGS: LOWER CHEST: Mild cardiac enlargement and mild coronary calcifications. LIVER: No focal lesion identified in this noncontrast study. Trace pneumobilia. GALLBLADDER/BILIARY: Surgically absent gallbladder. Status post choledochojejunostomy. No significant interval change in the biliary caliber. SPLEEN: Unremarkable. PANCREAS: Redemonstrate postsurgical changes of modified Whipple's. Some disease seen ADRENALS: Unremarkable. KIDNEYS: Obstructing stone measuring 7 mm in the proximal LEFT ureter resulting in moderate upstream hydroureteronephrosis. Additionally there are nonobstructing renal calculi bilaterally measuring up to 6 mm. PERITONEUM/RETROPERITONEUM. No lymphadenopathy by size criteria. No aortic aneurysm. GASTROINTESTINAL: No obstruction. Distal gastrectomy with gastrojejunostomy REPRODUCTIVE: Enlarged prostate gland impinging upon the urinary bladder outlet. URINARY BLADDER mild circumferential wall thickening. No ABDOMINAL WALL: Small inguinal fat-containing hernias. Fat-containing marciano-incisional hernias in the anterior abdomen. BONES: No acute findings. Posterior instrumented fusion L4-5. IMPRESSION: Obstructing stone measuring 7 mm in the proximal LEFT ureter resulting in moderate upstream hydroureteronephrosis. Electronically signed by Vinnie Reich 02-14-2025 4:48 PM [facility] Narrative 1547: The patient was evaluated in room A12. A complete history and physical exam was performed Cardiac monitoring: An order was placed for continuous cardiac monitoring. The monitor shows a rate of 80 with sinus rhythm interpreted by ga 1711: Vital signs stable.Labs showed creatinine of 1.61 up from patient's baseline. Urinalysis is not concerning for infection. Imaging shows obstructing 7 mm stone in the proximal left ureter without hydronephrosis. Patient will be admitted to the medicine team. Discussed case with Dr. Gross on-call urology via [facility] text will evaluate the patient in the morning. Impression & Plan Hydronephrosis concurrent with and due to calculi of kidney and ureter, LILO (acute kidney injury) Discharge Plan Visit Data Chief Complaint: Kidney Stone Stated Complaint: KIDNEY STONE ED Provider: Alex Greene Discharge Problem: Hydronephrosis concurrent with and due to calculi of kidney and ureter, LILO (acute kidney injury) Patient Disposition: Admitted As Inpatient Discharge Instructions Interventions: ED Discharge Assessment Last Done: 02/14/25 20:41
[2025-02-14] MEDS: ACETAMINOPHEN 500 MG TAB ONE (20:44)
[2025-02-14] MEDS: ACETAMINOPHEN 500 MG TAB PO SCH (20:44)
[2025-02-14] MEDS: INSULIN ASPART PER UNIT CHARGE SC SCH (22:40)
[2025-02-15] MEDS: INSULIN ASPART PER UNIT CHARGE SC STA (00:35)
--- OUTSIDE RECORDS SUMMARY | 2025-02-15 01:31 | External Medical Summary | Summary of Care ---
Author Name Unknown Organization [facility] Address [address] [place] [address] Phone [phone] Care Team Providers Care Salvage Grinder Name Role Phone Payam Mary MD Primary Care Provider + Reason for Visit * Reason Onset Date Comments Referral 01/28/2025 Encounter Details Date Type Department Care Team (Late st Contact Info) Description 01/28/2025 New Patient Triage (TRANSMITTER SUPERVISOR USE ONLY) Cardiology, [facility] [address] [place] [phone] Sussy Skinner CRNP [address] [place] [address] Referral Allergies Active Allergy Reactions Criticality Noted Date Comments Erythromycin Hives 06/14/2018 Iodine Hives 06/14/2018 Ipratropium-Albuterol Hives 11/04/2024 Levofloxacin Hives 06/14/2018 Oxycodone High 06/10/2020 Pseudoephedrine 09/26/2024 hives Sulfamethoxazole-Trimetho prim Other (Please comment) 06/14/2018 Ringing in ears documented as of this encounter (statuses as of 01/30/2025) Medications Multiple Vitamins-Minerals (CENTRUM SILVER 50+MEN) TABS Take 1 Tab by mouth every other day. Active B Complex Tablet Take 1 Tablet by mouth every other day. Active aspirin enteric coated 81 MG TBEC Take 1 Tablet by mouth in the morning. Active Vitamin D3 50 MCG (2000 UT) Oral Tablet Take 0.5 Tablets by mouth at bedtime. Takes 1000 units 1 capsule every 08/20/20 Active metFORMIN HCl ER 500 MG Oral Tablet Extended Release 24 Hour (Glucophage XR)Indications:ta kes at night Take 1 Tablet by mouth in the morning. 90 Tablet 3 06/04/20 24 Active Lansoprazole 15 MG Oral Capsule Delayed Release (Prevacid)Indicat ions:History of duodenal cancer Take 1 Capsule by mouth in the morning. 15 mg by mouth daily. 90 Capsule 1 06/19/20 24 Active Additional Information Patient taking differently:15 mg Oral Daily(AM),15 mg by mouth daily Takes Monday and Monday, Reported on 01/29/2025 Magnesium 400 MG Oral Tablet Take 400 mg by mouth every other day. Active Creon 50557-40431 UNIT Oral Capsule Delayed Release ParticlesIndicati ons:Pancreatic insufficiency Take 2 Capsules by mouth in the morning and 2 Capsules at noon and 2 Capsules before bedtime. 500 Capsule 2 07/11/20 24 Active Melatonin 5 MG Oral Tablet Chewable Take by mouth. Activ e Potassium Citrate ER 10 MEQ (1080 MG) Oral Tablet Extended Release (potassium citrate-10) Take 1 Tablet by mouth in the morning and 1 Tablet before bedtime. 100 Tablet 6 10/31/19 25 Active Fluticasone Propionate 50 MCG/ACT Nasal Suspension (Flonase) Administer 2 Sprays into each nostril every evening. 11/04/19 25 Active Additional Information Patient not taking.Reported on 01/29/2025 Fluorouracil 5 % External Cream (Efudex) Apply topically to affected area 2 times a day . apply to right cheek 2x per day for 10-14 days 40 g 05/13/20 22 025 Discontin ued(Patie nt preferenc e/discont inuation) documented as of this encounter (statuses as of 01/30/2025) Active Problems Problem Noted Date Diagnosed Date Normocytic anemia 10/25/2023 Chronic kidney disease, stage 3a 10/02/2023 Overview: Per CKD protocol Chemotherapy-induced neuropathy 10/27/2022 Type 2 diabetes mellitus wit h diabetic nephropathy, without long-term current use of insulin 05/10/2022 Pancreatic insufficiency 05/05/2022 Diastolic dysfunction 11/03/2021 Type 2 diabetes mellitus wit h hemoglobin A1c goal of less than 7.0% 10/28/2021 RBBB 10/27/2021 1st degree AV block 10/27/2021 Actinic keratosis 05/05/2021 Mild aortic valve sclerosis 10/27/2020 History of kidney stones 11/05/2019 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, tx with whipple, chemo History of squamous cell carcinoma 10/23/2005 documented as of this encounter (statuses as of 01/30/2025) Resolved Problems Problem Noted Date Diagnosed Date Resolved Date Stressful life event affecting family 05/05/2021 10/27/2022 Gastritis 08/01/2018 06/17/2019 Overview (08/01/2018): EGD 2020 DUE Neuropathy 06/14/2018 10/27/2022 Overview (06/14/2018): Chemo induced Pre-diabetes 10/28/2021 Renal stones 11/05/2019 Overview (06/14/2018): multiple documented as of this encounter (statuses as of 01/30/2025) Immunizations Name Administration Dates Next Due COVID-19 mRNA, LNP-s, No Pre serve, 2-Dose Series (Moderna) 01/13/2021,12/15/2020 COVID-19, MRNA-LNP, PF, 50 M CG/0.5 mL, 12 YRS AND ABOVE, IM (MODERNA-Spikevax) 02/09/2024,07/26/2023 COVID-19, mRNA, LNP-s, PF, B ooster, 100mcg/0.5mg (Moderna) 03/07/2022,09/06/2021 Covid-19, Mrna, Lnp-s, Pf, B ivalent, 50 Mcg, IM, 12 yrs and above (Moderna) 07/13/2022 HEP A - Hepatitis A (Adult > 18 yrs) 08/05/2011, 02/03/2011 Pneumococcal Conjugate Vacc, 13 Valent (Prevnar) 03/23/2018 Pneumococcal Polysaccharide PPV23 (Pneumovax) 02/20/2010 RSV Vac., Recomb, Adjuvant, PF,0.5 Ml (Arexvy) 08/25/2023 Season Influenza, Quad, PF, Adjuvanted, 65+ Yrs, IM (FLUAD) 07/30/2021,07/18/2020 Seasonal Influenza, High Dos e, Trivalent, PF, IM (Fluzone HD) 08/01/2024,07/31/2019,07/25/2018,08/01 Seasonal Influenza, Quadriva lent Hd (Fluzone Hd) 08/03/2023,07/26/2022 TDAP, Age 7 and older, IM (Adacel) 05/09/2017 Varicella Zoster Vaccine Marques lt (Zostavax) 02/20/2010 Zoster Vaccine Recombinant (Shingrix) ,04/22/2019,11/03/2018,10/29 documented as of this encounter Social History Tobacco Use Types Packs/Day Years Used Date Smoking Tobacco: Former Pipe Q uit: 1960 Smokeless Tobacco: Never Alcohol Use Standard Drinks/Week Comments Yes 13 (1 standard drink = 0.6 oz pure alcohol) Wine with dinner and drink after dinner in the evening. PHQ-2 Answer Date Recorded PHQ Adult Total Score 0 08/01/2024 Hunger Vital Sign Answer Date Recorded Within the past 12 months, y ou worried that your food would run out before you got the money to buy more. Never true 08/01/20 24 Within the past 12 months, t he food you bought just didn't last and you didn't have money to get more. Never true 08/01/2024 Childcare Answer Date Recorded Do you feel overwhelmed with taking care of a child, family member or friend? No 08/01/2024 Does your family need help f inding childcare? (Household - for ages 0-17 years) Not on file 08/01/2024 Clothing Answer Date Recorded Have you been unable to get clothing when it was really needed? No 08/01/2024 Is your family able to get c lothes or diapers when needed? (Household - for ages 0-17 years) Not on file 08/01/2024 Personal Safety Answer Date Recorded Do you feel unsafe or have concerns for your saf ety? No 08/01/2024 Do you have concerns for you r family's safety? (Household - for ages 0-17 years) Not on file 08/01/2024 Utilities Answer Date Recorded Do you have trouble paying y our heating, water, or electric bill? No 08/01/2024 Is your family able to pay t he heat, water, or electric bill? (Household - for ages 0-17 years) Not on file 08/01/2024 Does your family have access to good internet? (Household - for ages 0-17 years) Not on file 08/01/2024 Employment Status Answer Date Recorded Are you unemployed or without regular income? No 08/01/2024 Does the household have a re lar source of income? (Household - for ages 0-17 years) Not on file 08/01/2024 Social Connections Answer Date Recorded How often do you feel lonely or isolated from th ose around you? Never 08/01/2024 Financial Resource Strain Answer Date R ecorded Do you have any trouble payi ng for your medications, or do you think you might in the future? No 08/01/2024 Does your family have troubl e paying for medicine? (Household - for ages 0-17 years) Not on file 08/01/2024 Transportation Needs Answer Date Record ed Do you have trouble getting a ride to medical visits or work? (Adult - for ages 18 years and over) Not on file 08/01/2024 Does your family have a hard time getting a ride to doctors visits? (Household - for ages 0-17 years) Not on file 08/01/2024 Has lack of transportation k ept you from medical appointments, meetings, work, or from getting things needed for daily living? Check all that apply. No 08/01/2024 Do you (or your family) have trouble finding or paying for a ride (transportation)? (Household - for ages 0-17 years) Not on file 08/01/2024 Housing Stability Answer Date Recorded Do you currently live in a s helter or have no steady place to sleep at night? No 08/01/2024 Do you think you are at risk of becoming homeless? (Adult - for ages 18 years and over) Not on file 08/01/2024 Does your family worry about paying for your home or becoming homeless? (Household - for ages 0-17 years) Not on file 1 Are you homeless or worried that you might be in the future? No 08/01/2024 Are you (or your family) jesus alberto eless or worried that you might be in the future? (Household - for ages 0-17 years) Not on file Food Insecurity Answer Date Recorded Do you need food for this week? No 08/01/2024 Are you able to get enough f ood for your family? (Household - for ages 0-17 years) Not on file 08/01/2024 Does your family need food t his week? (Household - for ages 0-17 years) Not on file 08/01/2024 Do you always have enough fo od for your family? (Household - for ages 0-17 years) Not on file 08/01/2024 Food Insecurity Answer Date Recorded Within the past 12 months, y ou worried that your food would run out before you got the money to buy more. Never true 08/01/20 24 Within the past 12 months, t he food you bought just didn't last and you didn't have money to get more. Never true 08/01/2024 Do you need food for this week? 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 Patient declined appts. Cancel referral. Thank you, OLINDA Galan Cardiology [facility] * Lashon HaroSCHUYLER - 01/28/2025 3:43 PM EDT New Patient Triage What is the diagnosis/reason for referral?: PVC (premature ventricular contraction) [I49.3] - Primary Enter order ID here: [id number] Specialty specific documentation: Cardiology Structural Heart Discussed care plan with patient or proxy?: Yes By phone. Called pt, he was in [place] 01/03/25 (see01/23/25 tele enc) having a lithotripsy procedure, this was 'cut short' per pt d/t irregular heart beat. Pt is also scheduled for EGD with Dr. Presley 01/31/25, pt states he does not need cardiac clearance for this procedure. He would like to return to [place] to have remainder of kidney stones removed. Records requested. Communicated with patient on 01/28/25 at 3:48 PM APPOINTMENT INFO: Had 2 appt scheduled w/cardiology, one in - cancelled. One in June Cancelled. Pt is not interested in telemed. PCP/REFERRING - Dr. Mary/Apoorva BUSH - See 01/23/25 tele encounter 11/04/24 Office visit with [place] Chan Ibrahima Hall is a 78 year old male that presents for Re-Check Pt here today for a routine 6 month f/up of chronic medical conditions. No recent labs--will have him update today. Pt follows with urology routinely, as well as heme/onc and derm. Pt c/o ongoing runny nose and sinus congestion for the last 8 weeks or so. No fever/chills. Pt denies chest pain, SOB, or issues with Bms. Review of Systems: See HPI for pertinent positives. All other review of systems is negative. Type 2 diabetes mellitus with diabetic nephropathy, without long-term current use of insulin (HCC) Update labs today and again before his next routine f/up. Last A1c 7.6--will update. Continue current meds for now. - HEMOGLOBIN A1C; Future - BASIC METABOLIC PANEL; Future - LIPID PANEL WITH DIRECT LDL IF TG IS HIGH; Future - HEMOGLOBIN A1C; Future - ALBUMIN / CREATININE RATIO, URINE; Future - HEMOGLOBIN A1C - BASIC METABOLIC PANEL Sinus congestion Discussed using Flonase nasal spray to help with congestion and drainage--he is agreeable. Postnasal drip See above. Pancreatic insufficiency Continue creon. Chronic kidney disease, stage 3a (HCC) Continue to monitor labs. Mild aortic valve sclerosis Stable. History of duodenal cancer Continue prophylactic lansoprazole. History of kidney stones Continue to follow with Urology. EKG/ECHO/ZIO/CARDIAC TESTING LABS Results for orders placed or performed in visit on 11/04/24 HEMOGLOBIN A1C Result Value Ref Range Hemoglobin A1C 7.0 (H) 4.0 - 5.6 % Estimated Average Glucose 154 (H) <126 mg/dL BASIC METABOLIC PANEL Result Value Ref Range BUN 22 (H) 6 - 20 mg/dL CREATININE 1.5 (H) 0.6 - 1.2 mg/dL EGFR 48 (L) >=60 mL/min SODIUM 138 135 - 146 mmol/L POTASSIUM 4.9 3.5 - 5.1 mmol/L CHLORIDE 107 98 - 107 mmol/L CO2 23 22 - 32 mmol/L ANION GAP 8 7 - 15 mmol/L GLUCOSE 172 (H) 70 - 120 mg/dL CALCIUM 9.1 8.4 - 10.2 mg/dL MEDICATIONS Fluticasone Propionate 50 MCG/ACT Nasal Suspension (Flonase) Potassium Citrate ER 10 MEQ (1080 MG) Oral Tablet Extended Release (potassium citrate-10) Melatonin 5 MG Oral Tablet Chewable Creon 80146-00863 UNIT Oral Capsule Delayed Release Particles Magnesium 400 MG Oral Tablet Lansoprazole 15 MG Oral Capsule Delayed Release (Prevacid) metFORMIN HCl ER 500 MG Oral Tablet Extended Release 24 Hour (Glucophage XR) Fluorouracil 5 % External Cream (Efudex) Vitamin D3 50 MCG (1999 UT) Oral Tablet aspirin enteric coated 81 MG TBEC B Complex Tablet Multiple Vitamins-Minerals (CENTRUM SILVER 50+MEN) TABS documented in this encounter Plan of Treatment Upcoming Encounters Date Type Department Care Team (Latest Contact Info) Description 01/31/2025 9:00 AM EDT [facility] [address] [place] [phone] Constantino Presley MD [address] [place] [address] 01/31/2025 9:00 AM EDT - 01/31/2025 9:30 AM EDT [facility] [address] [place] [phone] Constantino Presley MD [address] [place], [place] [address] ESOPHAGOGASTRODUODENOSCOPY (EGD), FLEXIBLE, TRANSORAL, DIAGNOSTIC 05/01/2025 10:40 AM EDT [facility] [address] [facility] [place] [address] Payam Mary MD [address] [facility] [place] [address] 05/09/2025 11:30 AM EDT Office Visit Hematology/Oncol ogy [facility] [address] [facility] [place] [phone] Maday Azul CRNP [address] [place], [place] [address] [address] 07/10/2025 11:15 AM EDT [facility] [address] [facility] [place] [address] Payam Rey MD [address] [facility] [place] [address] 08/07/2025 9:00 AM EDT Nurse Only Ancillary [facility] [address] [facility] [place] [address] Yuki, Nurse Annual Wellness [facility] [address] [facility] [place] [address] 11/03/2025 1:45 PM EST Office Visit Urology, [facility] [address] [place] [phone] Ian Morales MD [address] [place] [address] Scheduled Procedures Name Priority Associated Diagnoses Date/Ti me ESOPHAGOGASTRODUODENOSCOPY ( EGD), FLEXIBLE, TRANSORAL, DIAGNOSTIC Recall Gastritis 01/31/2025 9:00 AM EDT Health Maintenance Due Date Last Done Comments Colonoscopy 06/16/2023 06/16/2021, 05/24, 06/16/2021, Additional history exists Diabetic Eye Exam 02/15/2025 02/16/2024, 08/04/2022 CKD HGB USE SMARTSET 26632 04/29/202504/29, 04/29/2024, 09/27/2023, Additional history exists Albumin/Creatinine Ratio 04/30/2025 024, 05/19/2023, 05/05/2022 CKD PHOS USE SMARTSET 59999 04/30/2025 07/0 06/2024, 05/19/2023, 05/10/2022, Additional history exists GFR 05/04/2025 11/04/2024, 07/0 06/2024, 04/29/2024, Additional history exists HbA1c 05/04/2025 11/04/2024, 07/0 05/2024, 10/25/2023, Additional history exists COVID-19 Vaccine ( season) 2025 11/11/2024, 02/09/2024, 07/26/2023, Additional history exists Adult Wellness Visit 08/01/2025 08/01/2024, 07/27/2023, 07/26/2022 Depression Screening 08/01/2025 08/01/2024 Diabetic Foot Exam 08/01/2025 08/01/2024, 0 05/19/2023, 05/05/2022 DTap/Tdap Vaccines (2 - Td or Tdap) 05/09/2027 05/09/2017 Pneumococcal Vaccine: 50+ Years Completed 03/23/2018, 02/20/2010 Zoster Vaccines Completed 10/09/2019, 07/0 10/2018, 11/03/2018, Additional history exists RETIRED - COLONOSCOPY-EVERY 2 YRS AGES 18-100 Discontinued 06/16/2021, 06/16/2021, 06/16/2021, Additional history exists RETIRED - COLONOSCOPY-EVERY 5 YRS AGES 18-100 Discontinued 06/16/2021, 06/16/2021, 06/16/2021, Additional history exists Influenza Vaccine (FLU shot) Completed 08/01/2024, 08/03/2023, 07/26/2022, Additional history exists HPV (Gardasil) Vaccine Aged Out No lo nger eligible based on patient's age to complete this topic Hepatitis B Vaccine Aged Out No longe r eligible based on patient's age to complete this topic MENINGOCOCCAL (MENACTRA/MENVEO) Aged Out No longer eligible based on patient's age to complete this topic Meningitis B Vaccine (Bexsero/Trumemba) Aged Out No longer eligible based on patient's age to complete this topic documented as of this encounter Medical Devices Not on filedocumented as of this encounter Advance Directives * Full Code (Latest Code Status on File) Date Activated Date Inactivated Comments 06/12/2023 9:09 AM 06/12/2023 2:21 PM This order r eflects the patients wishes and were consensually agreed upon. Question Answer Comments Discussion of Advance Directives occurred with: Patient * Full Code Date Activated Date Inactivated Comments 06/12/2023 6:54 AM 06/12/2023 9:09 AM This order r eflects the patients wishes and were consensually agreed upon. Question Answer Comments Discussion of Advance Directives occurred with: Patient * Full Code Date Activated Date Inactivated Comments 07/18/2022 8:49 AM 07/18/2022 2:04 PM This order r eflects the patients wishes and were consensually agreed upon. Question Answer Comments Discussion of Advance Directives occurred with: Patient * Full Code Date Activated Date Inactivated Comments 07/18/2022 6:51 AM 07/18/2022 8:49 AM This order r eflects the patients wishes and were consensually agreed upon. Question Answer Comments Discussion of Advance Directives occurred with: Patient Care Teams Salvage Grinder Relationship Specialty Start Date End Date Payam Mary MD [address] [place] [address] PCP - General Internal Medicine 04/20/18 documented as of this encounter
--- OUTSIDE RECORDS SUMMARY | 2025-02-15 01:31 | External Medical Summary | Summary of Care ---
Author Name Unknown Organization [facility] Address [address] [place] [address] Phone [phone] Care Team Providers Care Voice And Data Technician Name Role Phone Payam Mary MD Primary Care Provider + Reason for Visit * Auth/Cert Specialty Diagnoses / Procedures Referred By Hortencia muniz Referred To Contact Diagnoses Gastritis Gastritis [K29.70] Procedures EGD, FLEXIBLE, DIAGNOSTIC ESOPHAGOGASTRODUODENOSCOPY (EGD), FLEXIBLE, TRANSORAL, DIAGNOSTIC Constantino Presley MD [address] [address] Phone: tel: fax: [facility], Endoscopy Room [facility] [address] [address] Phone: tel: Referral ID Status Reason Start Date Expiration Date Visits Re quested Visits Authorized [id number] Encounter Details Date Type Department Care Team (Latest Contact Info) Description 01/31/2025 8:16 AM EDT - 01/31/2025 11:51 AM EDT Hospital Encounter [facility], End[facility] [address] [place] [phone] Constantino Presley MD [address] [id number] Upper GI Endoscopy Discharge Disposition: Home - Self Care Allergies Active Allergy Reactions Criticality Noted Date Comments Erythromycin Hives 06/14/2018 Iodine Hives 06/14/2018 Ipratropium-Albuterol Hives 11/04/2024 Levofloxacin Hives 06/14/2018 Oxycodone High 06/10/2020 Pseudoephedrine 09/26/2024 hives Sulfamethoxazole-Trimetho prim Other (Please comment) 06/14/2018 Ringing in ears documented as of this encounter (statuses as of 02/01/2025) Medications Multiple Vitamins-Minerals (CENTRUM SILVER 50+MEN) TABS [...] Takes 1000 units 1 capsule every 08/20/20 20 Active metFORMIN HCl ER 500 MG Oral [...] by mouth every other day. Active Creon [id number] UNIT Oral Capsule Delayed Release ParticlesIndicati ons:Pancreatic [...] as of this encounter (statuses as of 02/01/2025) Active Problems Problem Noted Date Diagnosed Date [...] as of this encounter (statuses as of 02/01/2025) Resolved Problems Problem Noted Date Diagnosed Date Resolved Date Stressful life event affecting family 05/05/2021 10/27/2022 Gastritis 08/01/2018 06/17/2019 Overview (08/01/2018): EGD 2020 DUE Neuropathy 06/14/2018 10/27/2022 Overview (06/14/2018): Chemo induced Pre-diabetes 10/28/2021 Renal stones 11/05/2019 Overview (06/14/2018): multiple documented as of this encounter (statuses as of 02/01/2025) Immunizations Name Administration Dates Next Due COVID-19 [...] 08/01/2024 Does the household have a re gular source of income? 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 Not on file Not on file Not on file documented as of this encounter Last Filed Vital Signs Vital Sign Reading Time Taken Comments Blood Pressure 119/53 01/31/2025 10:09 AM EDT Pulse 66 01/31/2025 10:09 AM EDT Temperature 36.3 °C (97.4 °F) 01/31/2025 10:09 AM E DT Respiratory Rate 15 01/31/2025 10:09 AM EDT Oxygen Saturation 97% 01/31/2025 9:51 AM EDT Inhaled Oxygen Concentration - - Weight - - Height - - Body Mass Index - - documented in this encounter H&P Notes * Constantino Presley MD - 01/31/2025 9:19 AM EDT Endoscopy Pre-Procedure Assessment Name: Andrey Hall Date: 01/31/2025 Time: 9:19 AM Procedure(s): Upper GI Endoscopy; with Indication(s) of follow up of bile gastritis Endoscopy Pre-Procedure Assessment: Prior to the procedure, the patient is identified. The patient's history, medications and allergieshave been reviewed. The patient is competent. The risks and benefits of the proposed procedure and the planned sedation have been discussed with the patient. All questions have been answered and informed consent for the procedure has been obtained. Prior to Admission medications Medication Sig Last Dose Discont. Potassium Citrate ER 10 MEQ (1080 MG) Oral Tablet Extended Release (potassium citrate-10) Take 1 Tablet by mouth in the morning and 1 Tablet before bedtime. 01/30/2025 Melatonin 5 MG Oral Tablet Chewable Take by mouth. 01/30/2025 Creon [id number] UNIT Oral Capsule Delayed Release Particles Take 2 Capsules by mouth in the morning and 2 Capsules at noon and 2 Capsules before bedtime. 01/30/2025 Magnesium 400 MG Oral Tablet Take 400 mg by mouth every other day. Past Week Lansoprazole 15 MG Oral Capsule Delayed Release (Prevacid) Take 1 Capsule by mouth in the morning. 15 mg by mouth daily. Patient taking differently: Take 1 Capsule by mouth in the morning. 15 mg by mouth daily Takes Monday and Monday. Past Week metFORMIN HCl ER 500 MG Oral Tablet Extended Release 24 Hour (Glucophage XR) Take 1 Tablet by mouthin the morning. 01/30/2025 Vitamin D3 50 MCG (2000 UT) Oral Tablet Take 0.5 Tablets by mouth at bedtime. Takes 1000 units 1 capsule every 01/30/2025 aspirin enteric coated 81 MG TBEC Take 1 Tablet by mouth in the morning. Past Week B Complex Tablet Take 1 Tablet by mouth every other day. 01/30/2025 Multiple Vitamins-Minerals (CENTRUM SILVER 50+MEN) TABS Take 1 Tab by mouth every other day. 01/30/2025 Fluticasone Propionate 50 MCG/ACT Nasal Suspension (Flonase) Administer 2 Sprays into each nostril every evening. Patient not taking: Reported on 01/29/2025 Not Taking Review of patient's allergies indicates: Allergen Reactions Oxycodone Erythromycin Hives Iodine Hives Ipratropium-Albuterol Hives Levaquin [Levofloxacin] Hives Pseudoephedrine hives Smx-Tmp Ds [Sulfamethoxazole-Trimethoprim] Other (Please comment) Ringing in ears BP 145/62 | Pulse 64 | Temp 36.4 °C (97.6 °F) (Tympanic) | Resp 18 | SpO2 100% Physical Exam: Mental Status Examination: alert and oriented. Airway Examination: normal oropharyngeal airway and neck mobility. Respiratory Examination: clear to auscultation. CV Examination: normal. ASA Grade: II - A patient with mild systemic disease. Abdomen: negative This patient has undergone a preprocedural evaluation. A determination has been made to proceed with the planned procedure under [facility] procedural guidelines and the [facility] Non-Emergent, Elective Medical Services and Treatment Recommendations (published on 01-28-20). The community and hospital prevalence of COVID-19 has been discussed as well as this patient's specific risks associated with SARS-CoV-19 infection. Based upon the clinical acuity and patient-specific care considerations, this procedure is deemed a Tier II - Intermediate acuity treatment or service with either progression or the threat of progressive disease related to the delay in treatment. Not providing the service has the potential for increasing morbidity or mortality. After reviewing the risks and benefits, the patient is deemed in satisfactory condition to undergo the procedure. The anesthesia plan is to use general anesthesia. Constantino Presley MD 01/31/2025 documented in this encounter Procedure Notes * Payam Mary MD - 01/31/2025 9:33 AM EDTAssociated Order(s): UPPER GI ENDOSCOPY [facility] Patient Name: Andrey Hall Procedure Date: 01/31/2025 9:33 AM Date of : 1945 Admit Type: Outpatient Note Status: Finalized Date of : 1945 Admit Type: Outpatient Age: 79 Room: Endo 3 Gender: Male Note Status: Finalized Procedure: Upper GI endoscopy Indications: Follow-up of gastritis; Pt s/p Whipple, now with bile gastritis; EGD done for gastritis follow up and cancer screening. Providers: Constantino Presley MD (Doctor) Referring MD: Payam Mary MD (Referring MD) Medicines: See the Anesthesia note for documentation of the administered medications Complications: No immediate complications. Procedure: Pre-Anesthesia Assessment: - ASA Grade Assessment: II - A patient with mild systemic disease. - Prior to the procedure, a History and Physical was performed, and patient medication allergies have been reviewed. The patient's tolerance of previous anesthesia has been reviewed. - Respiratory Examination: clear to auscultation. - CV Examination: normal. - The risks and benefits of the procedure and the sedation options and risks were discussed with the patient. All questions were answered and informed consent was obtained. - Patient identification and proposed procedure were verified prior to the procedure by the physician, the nurse and the personal injury specialist. The procedure was verified in the pre-procedure area in the procedure room. - The medication list for this patient has been reviewed prior to the procedure and has been determined that the patient may proceed with the planned study. Any medication changes made as a result of the findings of this procedure have been discussed with the patient and/or brewery representative at the time of discharge from the facility. After obtaining informed consent, the endoscope was passed under direct vision. All instruments were visually inspected immediately before and after removal from the patient to ensure they are fully intact. Throughout the procedure, the patient's blood pressure, pulse, and oxygen saturations were monitored continuously. The [id number] Endoscope ([id number]) was introduced through the mouth, and advanced to the jejunum. The upper GI endoscopy was accomplished without difficulty. The patient tolerated the procedure well. Findings & Specimens: The examined esophagus was normal. GEJ at 40 cm, Hill 1. There was bile coating the entire stomach that was washed with extensive lavage and suction. The gastric mucosa was evaluated with both HDWL and NBI. The gastric folds were erythematous and mildly edematous. There was patchy variant mucosa along the lesser curve of the incisura. The gastroenteric anastamosis and small intestine were normal. Biopsies taken from incisura, body, and from fundus. Recommendation: - Discharge patient to home. Follow up pathology results. May consider surveillance in 3 years if comorbids allow and pending pathology review. Constantino Presley MD 01/31/2025 9:52:13 AM This report has been signed electronically. documented in this encounter Nursing Notes * Leann Holt RN - 01/31/2025 10:36 AM EDT Patient is alert, pain free, and tolerating po fluids prior to discharge. Patient has been visited by Dr. Presley. Patient has received and demonstrates understanding of discharge instructions. Patient ambulated to private auto accompanied by endo staff. * Leann Holt RN - 01/31/2025 9:51 AM EDT Patient transferred to post endo s/p EGD. Patient sleeping comfortably. Respirations are even and unlabored on room air. NSR in the 60s on the monitor. Abdomen soft and non distended. Vital signs stable. * Isaias Ulrich RN - 01/31/2025 9:47 AM EDT See anesthesia record for medication administered during procedure. Isaias Ulrich RN Specimen(s) and location(s) verified with physician post procedure 9:47 AM Isaias Ulrich RN Pre cleaning of scope at the bedside started by cardiac catheterization technician. * Carisa Queen RN - 01/31/2025 8:53 AM EDT brought to the bedside * Carisa Queen RN - 01/31/2025 8:36 AM EDT The following pt discharge instructions reviewed with pt prior to prodedure: No driving today. No alcohol today. No signing of legal documents. Rest as much as possible today and can return to normal activities tomorrow. No operating any heavy equipment today. Diet as tolerated. Pt verbalized understanding. documented in this encounter Plan of Treatment Upcoming Encounters Date Type Department Care Team (Late st Contact Info) Description 05/01/2025 10:40 AM EDT Office Visit General Internal Medicine [facility] [place] [address] [place] [address] Payam Mary MD [address] [place] [address] [place] [address] 05/09/2025 11:30 AM EDT Office Visit Hematology/Oncology [facility] [place] [address] [place] [phone] Maday Azul CRNP [address] [place], [place] [address] [address] 07/10/2025 11:15 AM EDT Office Visit Dermatology [facility] [address] [place] [address] Payam Rey MD [address] [place] [address] 08/07/2025 9:00 AM EDT Nurse Only Ancillary [facility] [address] [place] [address] Park, Nurse [facility] [address] [facility] [place] [address] 11/03/2025 1:45 PM EST Office Visit Urology, Health system [address] [place] [phone] Ian Morales MD [address] [place] [address] Pending Results Name Type Priority Associated Diagnoses Date /Time SURGICAL PATHOLOGY Pathology Routine Gastritis 01/31/2025 9:48 AM EDT Scheduled Orders Name Type Priority Associated Diagnoses Order Schedule GLUCOSE METER, POINT OF CARE (COMMUNICATION ORDER) Point of Care Testing Routine Perform Now for 1 Occurrences starting 01/31/2025 until 01/31/2025 SURGICAL PATHOLOGY Pathology Routine Gastritis Release Upon Ordering for 1 Occurrences starting 01/31/2025, 1 completed Health Maintenance Due Date Last Done Comments Colonoscopy 10/16/2023 10/16/2021, 0802/2021, 06/16/2021, Additional history exists Diabetic Eye Exam 02/15/2025 02/16/2024, 08/04/2022 CKD HGB USE SMARTSET 43013 04/29/202504/29, 04/29/2024, 09/27/2023, Additional history exists Albumin/Creatinine Ratio 04/30/2025 024, 05/19/2023, 05/05/2022 CKD PHOS USE SMARTSET 63065 04/30/2025 07/0 06/2024, 05/19/2023, 05/10/2022, Additional history [...] - COLONOSCOPY-EVERY 2 YRS AGES 18-100 Discontinued 10/16/2021, 06/16/2021, 06/16/2021, Additional history exists RETIRED - COLONOSCOPY-EVERY 5 YRS AGES 18-100 Discontinued 10/16/2021, 06/16/2021, 06/16/2021, Additional history exists Influenza Vaccine [...] Not on filedocumented as of this encounter Procedures Procedure Name Priority Date/Time Associated Diagnosis Comments UPPER GI ENDOSCOPY 01/31/2025 9: 33 AM EDT GLUCOSE METER, POINT OF CARE REDDY 01/31/2025 8:46 AM EDT documented in this encounter Results * UPPER GI ENDOSCOPY (01/31/2025 9:33 AM EDT) 01/31/2025 9:33 AM EDT Narrative Procedure Note Payam Mary MD - 01/31/2025 9:33 AM EDT [facility] Patient Name: Andrey Hall Procedure Date: 01/31/2025 9:33 AM Date of : 1945 Admit Type: Outpatient Note Status:Finalized Date of : 1945 Admit Type: Outpatient Age: 79 Room: [facility] 3 Gender: Male Note Status: Finalized Procedure: Upper GI endoscopy Indications: Follow-up of gastritis; Pt s/p Whipple, now withbile gastritis; EGD done for gastritis follow up and cancer screening. Providers: Constantino Presley MD (Doctor) Referring MD: Payam Mary MD (Referring MD) Medicines: See the Anesthesia note for documentation of theadministered medications Complications: No immediate complications. Procedure: Pre-Anesthesia Assessment: - ASA Grade Assessment: II - A patient with mildsystemic disease. - Prior to the procedure, a History and Physicalwas performed, and patient medication allergies have been reviewed. Thepatient's tolerance of previous anesthesia has been reviewed. - Respiratory Examination: clear to auscultation. - CV Examination: normal. - The risks and benefits of the procedure and thesedation options and risks were discussed with the patient. All questions wereanswered and informed consent was obtained. - Patient identification and proposed procedurewere verified prior to the procedure by the physician, the nurse and the personal injury specialist.The procedure was verified in the pre-procedure area in the procedure room. - The medication list for this patient has beenreviewed prior to the procedure and has been determined that the patient may proceedwith the planned study. Any medication changes made as a result of the findingsof this procedure have been discussed with the patient and/or brewery representative atthe time of discharge from the facility. After obtaining informed consent, the endoscope waspassed under direct vision. All instruments were visually inspected immediatelybefore and after removal from the patient to ensure they are fully intact. Throughout the procedure, the patient's bloodpressure, pulse, and oxygen saturations were monitored continuously. The [id number] ([id number]) was introduced through the mouth, and advanced to the jejunum. The upperGI endoscopy was accomplished without difficulty. The patient tolerated theprocedure well. Findings & Specimens: The examined esophagus was normal. GEJ at 40 cm, Hill 1. There was bile coating the entire stomach that was washed withextensive lavage and suction. The gastric mucosa was evaluated with both HDWL and NBI. The gastric folds were erythematous and mildly edematous. There waspatchy variant mucosa along the lesser curve of the incisura. The gastroenteric anastamosis and small intestine were normal. Biopsies taken from incisura, body, and from fundus. Recommendation: - Discharge patient to home. Follow up pathologyresults. May consider surveillance in 3 years if comorbids allow and pending pathologyreview. Constantino Presley MD 01/31/2025 9:52:13 AM This report has been signed electronically. us Payam Mary MD [facility] Final Re sult * (ABNORMAL) GLUCOSE METER, POINT OF CARE (01/31/2025 8:46 AM EDT) Glucose - POCT 129(H) 70 - 120 mg/dL 01/31/2025 8:51 AM EDT [facility] Device Comment Pre Treatment 01/31/2025 8:51 AM EDT [facility] Blood Whole blood specimen / Unknown 01/31/2025 8:46 AM EDT 01/31/2025 8:51 AM EDT us Constantino Presley MD LAB POINT OF CA RE TEST DOCKED DEVICE UNSOLICITED RESULTS Final Result [facility] [address] [address] documented in this encounter Visit Diagnoses Diagnosis Gastritis Unspecified gastritis and gastroduodenitis without mention of hemorrhage documented in this encounter Administered Medications Inactive Administered Medications - up to 3 most recent administrations Medication Order MAR Action Action Date Dose Rate Site Isolyte-S pH 7.4 infusion Intravenous, at 100 mL/hr, Plasma-LYTE 148, isolyte-S, and isolyte-S pH 7.4 are considered equivalent - including for MAR barcode scanning., CONTINUOUS, Starting on Mon01/31/25 at 0915, Until Mon01/31/25 at 1551, Pre-Op Restarted 01/31/2025 9:34 AM EDT Continue from Pre-Op 01/31/2025 9:29 AM EDT 100 mL/hr New Bag 01/31/2025 8:50 AM EDT 100 mL/hr documented in this encounter Active and Recently Administered Medications Times are shown in EDT. Continuous Medication Order 01/29/2025 01/30/2025 01/31/2025 Isolyte-S pH 7.4 infusion Intravenous, at 100 mL/hr, Plasma-LYTE 148, isolyte-S, and isolyte-S pH 7.4 are considered equivalent - including for MAR barcode scanning., CONTINUOUS, Starting on Mon01/31/25 at 0915, Until Mon01/31/25 at 1551, Pre-Op 0850 (New Bag - Prov ider: Carisa Queen RN)0929 (Continue from Pre-Op - Provider: Juany Peng CRNA)0933 (Paused - Provider: Juany Peng CRNA - Comment: Switch to gravity)0934 (Restarted - Provider: Juany Peng CRNA)0952 (Anes Intra-Op Fluid - Provider: Juany Peng CRNA) documented in this encounter Advance Directives * Full Code [...] Advance Directives occurred with: Patient Care Teams Voice And Data Technician Relationship Specialty Start Date End Date Payam Mary MD [address] [place] [address] PCP - General Internal Medicine 04/20/18 documented as of this encounter"
--- OUTSIDE RECORDS SUMMARY | 2025-02-15 01:31 | External Medical Summary | Summary of Care ---
Author Name Unknown Organization [facility] Address [address] [place] [address] Phone [phone] Care Team Providers Care Driver Trainer Name Role Phone Payam Mary MD Primary Care Provider + Reason for Visit * Reason Onset Date Comments Referral 01/28/2025 Encounter Details Date Type Department Care Team (Late st Contact Info) Description 01/28/2025 New Patient Triage ([employer]IC [employer] USE ONLY) Cardiology, [facility] [address] [place] [address] Sussy Skinner CRNP [address] [place] [address] Referral Allergies Active Allergy Reactions Criticality Noted Date Comments Erythromycin Hives 06/14/2018 Iodine Hives 06/14/2018 Ipratropium-Albuterol Hives 11/04/2024 Levofloxacin Hives 06/14/2018 Oxycodone High 06/10/2020 Pseudoephedrine 09/26/2024 hives Sulfamethoxazole-Trimetho prim Other (Please comment) 06/14/2018 Ringing in ears documented as of this encounter (statuses as of 01/29/2025) Medications Multiple Vitamins-Minerals (CENTRUM SILVER 50+MEN) TABS [...] bedtime. Takes 1000 units 1 capsule every 0 Active Fluorouracil 5 % External Cream (Efudex) Apply topically to affected area 2 times a day . apply to right cheek 2x per day for 10-14 days 40 g 2 Active metFORMIN HCl ER 500 MG Oral Tablet Extended Release 24 Hour (Glucophage XR)Indications:ta kes at night Take 1 Tablet by mouth in the morning. 90 Tablet 3 4 Active Lansoprazole 15 MG Oral Capsule Delayed Release (Prevacid)Indicat ions:History of duodenal cancer Take 1 Capsule by mouth in the morning. 15 mg by mouth daily. 90 Capsule 1 4 Active Additional Information Patient taking differently:15 mg Oral Daily(AM),15 mg by mouth daily Takes Monday and Monday, Reported on 11/04/2024 Magnesium 400 MG Oral Tablet Take 400 mg by mouth every other day. Active Creon [id number] UNIT Oral Capsule Delayed Release ParticlesIndicati ons:Pancreatic insufficiency Take 2 Capsules by mouth in the morning and 2 Capsules at noon and 2 Capsules before bedtime. 500 Capsule 2 4 Active Melatonin 5 MG Oral Tablet Chewable Take by mouth. Activ e Potassium Citrate ER 10 MEQ (1080 MG) Oral Tablet Extended Release (potassium citrate-10) Take 1 Tablet by mouth in the morning and 1 Tablet before bedtime. 100 Tablet 6 5 Active Fluticasone Propionate 50 MCG/ACT Nasal Suspension (Flonase) Administer 2 Sprays into each nostril every evening. 5 Active documented as of this encounter (statuses as of 01/29/2025) Active Problems Problem Noted Date Diagnosed Date [...] as of this encounter (statuses as of 01/29/2025) Resolved Problems Problem Noted Date Diagnosed Date Resolved Date Stressful life event affecting family 05/05/2021 10/27/2022 Gastritis 08/01/2018 06/17/2019 Overview (08/01/2018): EGD 2020 DUE Neuropathy 06/14/2018 10/27/2022 Overview (06/14/2018): Chemo induced Pre-diabetes 10/28/2021 Renal stones 11/05/2019 Overview (06/14/2018): multiple documented as of this encounter (statuses as of 01/29/2025) Immunizations Name Administration Dates Next Due COVID-19 [...] No 08/01/2024 Does the household have a [facility] source of income? 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 Called pt, he was in [place] 01/03/25 (see01/23/25 tele enc) having a lithotripsy procedure, this was 'cut short' per pt d/t irregular heart beat. Pt is also scheduled for EGD with Dr. Presley 01/31/25, pt states he does not need cardiac clearance for this procedure. He would like to return to [place] to have remainder of kidney stones removed. [...] Melatonin 5 MG Oral Tablet Chewable Creon [id number] UNIT Oral Capsule Delayed Release Particles Magnesium [...] 01/31/2025 9:00 AM EDT Hospital Encounter ENDO [facility], Endoscopy Room [facility] [address] [place] [phone] Constantino Presley MD [address] [place] [address] 01/31/2025 9:00 AM EDT - 01/31/2025 9:30 AM EDT Surgery ENDO [facility], Endoscopy Room [facility] [address] [phone] Constantino Presley MD [address] [place] [address] ESOPHAGOGASTRODUODENOSCOPY (EGD), FLEXIBLE, TRANSORAL, DIAGNOSTIC 05/01/2025 10:40 AM EDT Office Visit General Internal Medicine [facility] [address] [facility] [place] [address] Payam Mary MD [address] [facility] [place] [address] 05/09/2025 11:30 AM EDT Office Visit Hematology/Oncol ogy [facility] [address] [facility] [place] [phone] Maday Azul CRNP 400 [facility] [place] [id number] 07/10/2025 11:15 AM EDT Office Visit Dermatology [facility] [address] [facility] [place] [address] Payam Rey MD [address] [facility] [place] [address] 08/07/2025 9:00 AM EDT Nurse Only Ancillary [address] [place] [address] Yuki, Nurse Annual Wellness [address] [facility] [place] [address] 11/03/2025 1:45 PM EST Office Visit Urology, [facility] [address] [place] [phone] Ian Morales MD [address] [place] [address] Scheduled Procedures Name Priority Associated Diagnoses Date/Ti me ESOPHAGOGASTRODUODENOSCOPY ( EGD), FLEXIBLE, TRANSORAL, DIAGNOSTIC Recall Gastritis 01/31/2025 9:00 AM EDT Health Maintenance Due Date Last Done Comments Colonoscopy 06/16/2023 06/16/2021, 05/24, 06/16/2021, Additional history exists Diabetic Eye Exam 02/15/2025 02/16/2024, 08/04/2022 CKD HGB USE SMARTSET 69498 04/29/202504/29, 04/29/2024, 09/27/2023, Additional history exists Albumin/Creatinine Ratio 04/30/2025 07/ 024, 05/19/2023, 05/05/2022 CKD PHOS USE SMARTSET 62072 04/30/2025 07/0 06/2024, 05/19/2023, 05/10/2022, Additional history [...] Advance Directives occurred with: Patient Care Teams Driver Trainer Relationship Specialty Start Date End Date Payam Mary MD [address] [place] [address] PCP - General Internal Medicine 04/20/18 documented as of this encounter
--- OUTSIDE RECORDS SUMMARY | 2025-02-15 01:31 | External Medical Summary | Summary of Care ---
Author Name Unknown Organization [facility] Address [address] [place] [address] Phone [phone] Care Team Providers Care Director Of Clinical Applications Name Role Phone Payam Mary MD Primary Care Provider + Reason for Visit * Reason Onset Date Comments Imaging Records Request 2024 Patient Access Records Request 2024 Encounter Details Date Type Department Care Team (Late st Contact Info) Description 2024 Telephone Radiology Film File [address] [place] [address] Support, Imaging Radiology [address], [place] [id number] Imaging Records Request; Patient Access Re... Allergies Active Allergy Reactions Criticality Noted Date Comments Erythromycin Hives 06/14/2018 Iodine Hives 06/14/2018 Ipratropium-Albuterol Hives 11/04/2024 Levofloxacin Hives 06/14/2018 Oxycodone High 06/10/2020 Pseudoephedrine 09/26/2024 hives Sulfamethoxazole-Trimetho prim Other (Please comment) 06/14/2018 Ringing in ears documented as of this encounter (statuses as of 2024) Medications Multiple Vitamins-Minerals (CENTRUM SILVER 50+MEN) TABS [...] by mouth every other day. Active Creon [id number] UNIT Oral Capsule Delayed Release ParticlesIndicati ons:Pancreatic [...] as of this encounter (statuses as of 2024) Active Problems Problem Noted Date Diagnosed Date [...] as of this encounter (statuses as of 2024) Resolved Problems Problem Noted Date Diagnosed Date Resolved Date Stressful life event affecting family 05/05/2021 10/27/2022 Gastritis 08/01/2018 06/17/2019 Overview (08/01/2018): EGD 2020 DUE Neuropathy 06/14/2018 10/27/2022 Overview (06/14/2018): Chemo induced Pre-diabetes 10/28/2021 Renal stones 11/05/2019 Overview (06/14/2018): multiple documented as of this encounter (statuses as of 2024) Immunizations Name Administration Dates Next Due COVID-19 [...] older, IM (Adacel) 05/09/2017 Varicella Zoster Vaccine (Adult) 02/20/2010 Zoster Vaccine Recombinant (Shingrix) ,04/22/2019,11/03/2018,10/29 documented [...] ages 0-17 years) Not on file 08/01/2024 Sex and Gender Information Value Date Recorded Sex Assigned at Male 11/05/2019 9:10 AM EST Legal Sex Male 3:24 PM EDT Gender Identity Male 11/05/2019 9:10 AM EST Sexual Orientation Straight 11/05/2019 9: 10 AM EST Occupation Industry Job Start Date Job End Date 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 Not on file Not on file Not on file documented as of this encounter Miscellaneous Notes * Telephone Encounter - Jordyn Zamudio OSA - 2024 11:51 AM EST Patient requested for 10/28/24 XR Image(s) be prepared and available for pickup Disc sent to [employer] media bond writer Patient/footwear sales representative notified that disc ready for pickup documented in this encounter Plan of Treatment Upcoming Encounters Date Type Department Care Team (Latest Contact Info) Description 01/31/2025 9:00 AM EDT Hospital Encounter ENDO [facility], Endoscopy Room [facility] [address] [place] [phone] Constantino Presley MD [address] [place] [address] 01/31/2025 9:00 AM EDT - 01/31/2025 9:30 AM EDT Surgery [facility], [facility] [place] [address] Constantino Presley MD 132 [facility] [place] [address] ESOPHAGOGASTRODUODENOSCOPY (EGD), FLEXIBLE, TRANSORAL, DIAGNOSTIC 05/01/2025 10:40 AM EDT Office Visit General Internal Medicine [facility] [address] [place] [address] Payam Mary MD [address] [facility] [place] [address] 05/09/2025 11:30 AM EDT Office Visit Hematology/Oncol ogy [facility] [address] [place] [address] Maday Azul CRNP 400 [facility] [place] [address] 07/10/2025 11:15 AM EDT Office Visit Dermatology [facility] [place] [address] [place] [address] Payam Rey MD 200 [facility] [place] [address] 08/07/2025 9:00 AM EDT Nurse Only Ancillary [facility] [place] [address] [place] [address] Yuki, Nurse Annual Wellness [facility] 200 [facility] [place] [address] 11/03/2025 1:45 PM EST Office Visit Urology, [facility] 132 [facility] [place] [address] Ian Morales MD [address] [place] [address] [place] [phone] Scheduled Procedures Name Priority Associated Diagnoses Date/Ti me ESOPHAGOGASTRODUODENOSCOPY ( EGD), FLEXIBLE, TRANSORAL, DIAGNOSTIC Recall Gastritis 01/31/2025 9:00 AM EDT Health Maintenance Due Date Last Done Comments Colonoscopy 06/16/2023 06/16/2021, 05/24, 06/16/2021, Additional history exists COVID-19 Vaccine ( season) 2024 02/09/2024, 07/26/2023, 07/13/2022, Additional history exists Diabetic Eye Exam 02/15/2025 02/16/2024, 08/04/2022 CKD HGB USE SMARTSET 18217 04/29/202504/29, 04/29/2024, 09/27/2023, Additional history exists Albumin/Creatinine Ratio 04/30/2025 024, 05/19/2023, 05/05/2022 CKD PHOS USE SMARTSET 32146 04/30/2025 07/0 06/2024, 05/19/2023, 05/10/2022, Additional history exists GFR 05/04/2025 11/04/2024, 07/0 06/2024, 04/29/2024, Additional history exists HbA1c 05/04/2025 11/04/2024, 07/0 05/2024, 10/25/2023, Additional history exists Adult Wellness Visit 08/01/2025 [...] Advance Directives occurred with: Patient Care Teams Director Of Clinical Applications Relationship Specialty Start Date End Date Payam Mary MD [address] [place] [place], [place] [address] PCP - General Internal Medicine 04/20/18 documented as of this encounter
--- OUTSIDE RECORDS SUMMARY | 2025-02-15 01:31 | External Medical Summary | Summary of Care ---
Author Name Unknown Organization [facility] Address [address] [place] [address] Phone [phone] Care Team Providers Care Community Engagement Representative Name Role Phone Payam Mary MD Primary Care Provider + Reason for Visit * Reason Onset Date Comments Preop Pt Assessment 01/28/2025 Encounter Details Date Type Department Care Team (Late st Contact Info) Description 01/28/2025 Telephone Pre Surgery Center, [facility] [address] [place] [address] Constantino Presley MD [address] [place] [address] Preop Pt Assessment Allergies Active Allergy Reactions Criticality Noted Date [...] by mouth every other day. 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 Twenty-five hundred shocks were used at a rate of 100 shocks per minute until 1569. Stone did appear to expand in situ on fluoroscopy. He did have some PVCs with couplets during therapy. I had to stop therapy and I did attempt to get the shockwave lithotripsy machine but the unit would not convert over to a gated mechanism- therefore the procedure was ended after 1569 shocks." Pt was encouraged to see cardiology per urology. He had an appt for 01/29 and 07/14 but both cx'd. Nowsched for EGD 01/31-please advise. Thank you. documented in this encounter Plan of Treatment Upcoming Encounters Date Type Department Care Team (Latest Contact Info) Description 01/31/2025 9:00 AM EDT Hospital Encounter ENDO [facility], Endoscopy Room [facility] [address] [place] [phone] Constantino Presley MD [address] [place] [address] 01/31/2025 9:00 AM EDT - 01/31/2025 9:30 AM EDT Surgery ENDO [facility], Endoscopy Room [facility] [address] [place] [phone] Constantino Presley MD [address] [place] [address] ESOPHAGOGASTRODUODENOSCOPY (EGD), FLEXIBLE, TRANSORAL, DIAGNOSTIC 05/01/2025 10:40 AM EDT Office Visit General Internal Medicine [facility] [place] [address] [place] [address] Payam Mary MD [address] [place] [address] 05/09/2025 11:30 AM EDT Office Visit Hematology/Oncol ogy [facility] [place] [address] [place] [phone] Maday Azul CRNP [address] [place] [address] [place] [address] 07/10/2025 11:15 AM EDT Office Visit Dermatology [facility] [address] [place] [address] Payam Rey MD [address] [place] [address] 08/07/2025 9:00 AM EDT Nurse Only Ancillary [facility] [place] [address] [place] [address] Yuki, Nurse Annual Wellness [facility] [address] [facility] [place] [address] 11/03/2025 1:45 PM EST Office Visit Urology, [facility] [address] [place] [phone] Ian Morales MD [address] [place] [address] Scheduled Procedures Name Priority Associated Diagnoses Date/Ti me ESOPHAGOGASTRODUODENOSCOPY ( EGD), FLEXIBLE, TRANSORAL, DIAGNOSTIC Recall Gastritis 01/31/2025 9:00 AM EDT Health Maintenance Due Date Last Done Comments Colonoscopy 06/16/2023 06/16/2021, 05/24, 06/16/2021, Additional history exists Diabetic Eye Exam 02/15/2025 02/16/2024, 08/04/2022 CKD HGB USE SMARTSET [id number] 04/29/202504/29, 04/29/2024, 09/27/2023, Additional history exists Albumin/Creatinine Ratio 04/30/2025 024, 05/19/2023, 05/05/2022 CKD PHOS USE SMARTSET 49691 04/30/2025 07/0 06/2024, 05/19/2023, 05/10/2022, Additional history exists GFR 05/04/2025 11/04/2024, 0 06/2024, 04/29/2024, Additional history exists HbA1c 05/04/2025 11/04/2024, 07/0 05/2024, 10/25/2023, Additional history exists COVID-19 Vaccine (2023- season) 2025 11/11/2024, 02/09/2024, 07/26/2023, Additional history exists Adult Wellness Visit 08/01/2025 08/01/2024, 07/27/2023, 07/26/2022 Depression Screening 08/01/2025 08/01/2024 Diabetic Foot Exam 08/01/2025 08/01/2024, 0 05/19/2023, 05/05/2022 DTap/Tdap Vaccines (2 - Td or Tdap) 05/09/2027 05/09/2017 Pneumococcal Vaccine: 50+ Years Completed 03/23/2018, 02/20/2010 Zoster Vaccines Completed 10/09/2019, 070 10/2018, 11/03/2018, Additional history exists RETIRED - [...] Advance Directives occurred with: Patient Care Teams Community Engagement Representative Relationship Specialty Start Date End Date Payam Mary MD 200 [facility] [address] PCP - General Internal Medicine 04/20/18 documented as of this encounter
--- OUTSIDE RECORDS SUMMARY | 2025-02-15 01:31 | External Medical Summary ---
Author Name Unknown Address Unknown Organization : Laboratory Report Ordering Provider Test Date Status BRITTNY DÍAZ 01/31/2025 08:46:30 Final Observation Date Value Abnormality Reference (Units) Status Glucose Point of Care 01/31/2025 08:46:30 129 Above high normal 70-120 (mg/dL) Final POCT DEVICE COMMENT 01/31/2025 08:46:30 Pre Treatment Final Performing Location
[2025-02-15] MEDS: KETOROLAC TROMETHAMINE 15 MG/ML VIAL IV PRN (01:46)
[2025-02-15] MEDS ORDERED: PROPOFOL IV EMULSION 10 MG/ML 20 ML VIAL IV ONE ×2 (06:47→08:12)
[2025-02-15] MEDS ORDERED: LIDOCAINE 2% 2 ML VIAL/AMP(20MG/ML) INFIL ONE (06:47)
[2025-02-15] MEDS ORDERED: ONDANSETRON INJ 2 MG/ML 2 ML VIAL ONE (06:47)
[2025-02-15] MEDS ORDERED: fentaNYL citrate PF 100 MCG/2 ML VIAL ONE (06:47)
[2025-02-15] MEDS ORDERED: ATROPINE SULFATE 0.1 MG/ML 10ML SYR IV PRN (06:55)
[2025-02-15] MEDS ORDERED: fentaNYL citrate PF 100 MCG/2 ML VIAL IV PRN (06:55)
[2025-02-15] MEDS ORDERED: ONDANSETRON INJ 2 MG/ML 2 ML VIAL IV PRN (06:55)
[2025-02-15] MEDS ORDERED: MoRPHine SULFATE 10 MG/ML CARP/VIAL IV PRN (06:55)
[2025-02-15] MEDS ORDERED: ePHEDrine sulfate 50 MG/ML AMP IV PRN (06:55)
--- NOTE | 2025-02-15 06:55 | Anesthesiology Consultation ---
Date of Service February 15, 2025 Assessment & Plan Chart Review Chart Review: Acceptable Risk for Surgery Consults Requested none ASA ASA3 Proposed Anesthesia Anesthesia Type: MAC Risk / Benefits Reviewed With: PT / POA / Parent / Guardian, Accepts Plan and Informed Consent Obtained History Surgery Operation Date: 02/15/25 07:30 Proposed Procedures p Cystoscopy Retrograde(Left) - Darren Gross MD Height/Weight Height: 5 ft 9 in Weight: 80.8 kg Allergies Allergy/AdvReac Type Severity Reaction Status Date / Time iodine Allergy Severe Hives Verified 02/14/25 16:49 erythromycin base Allergy Intermediate Hives Verified 02/14/25 16:49 levofloxacin [From Levaquin] Allergy Intermediate Hives Verified 02/14/25 16:49 oxycodone Allergy Intermediate Hives Verified 02/14/25 16:49 Medications Home Medications Medication Instructions Recorded Confirmed Last Taken aspirin 81 mg tablet,delayed 81 mg PO Q OTHER DAY 06/05/20 02/14/25 02/13/25 release cholecalciferol (vitamin D3) 25 25 mcg PO QDD 06/05/20 02/14/25 02/13/25 mcg (1,000 unit) tablet (Vitamin D3) lansoprazole 15 mg capsule,delayed 15 mg PO 2XWK 06/05/20 02/14/25 02/12/25 release vkiavb-xqechlsx-glxoyql 2 cap PO TIDM 06/05/20 02/14/25 02/14/25 08:00 24,000-76,000-120,000 unit capsule,delayed rel (Creon) multivitamin 1 tab PO Q OTHER DAY 06/05/20 02/14/25 02/13/25 vitamin B complex 1 tab PO Q OTHER DAY 06/05/20 02/14/25 02/13/25 azelastine 137 mcg (0.1 %) nasal 1 spray intranasal BID PRN Allergy 07/12/23 02/14/25 Unknown spray Symptoms calcium citrate 200 mg PO BIDM 07/12/23 02/14/25 02/13/25 fluticasone propionate 50 2 spray intranasal DAILY PRN 07/12/23 02/14/25 Unknown mcg/actuation nasal Allergy Symptoms spray,suspension metformin 500 mg tablet,extended 500 mg PO QAM 07/12/23 02/14/25 02/14/25 release 24 hr magnesium oxide 400 mg PO Q OTHER DAY 02/14/25 02/14/25 02/13/25 Active Medications Generic Name Dose Route Start Last Admin Trade Name Freq PRN Reason Stop Dose Admin Acetaminophen 1,000 mg 02/14/25 20:15 02/15/25 04:47 Acetaminophen 500 Mg Tab PO 03/16/25 20:14 Not Given Q8H ANN Sodium Chloride 500 mls @ 125 mls/hr 02/14/25 17:15 02/15/25 07:09 Nss IV 02/15/25 17:14 125 mls/hr .Q4H ANN Administration Insulin Aspart 0 units 02/14/25 21:00 02/14/25 22:40 Insulin Aspart Per Unit Charge SC 03/16/25 20:59 Not Given ACHS ANN Ketorolac Tromethamine 15 mg 02/14/25 20:50 02/15/25 01:46 Ketorolac Tromethamine 15 Mg/Ml Vial IV 02/19/25 20:31 15 mg Q6H PRN Administration Moderate Pain (Scale 4, 5, 6) Tamsulosin HCl 0.4 mg 02/14/25 18:15 02/14/25 18:46 Tamsulosin Hcl 0.4 Mg Cap PO 03/16/25 18:14 Not Given QAM [facility] NPO Date Last Intake of Fluids: 02/14/25 Time Last Intake of Fluids: 23:59 Date Last Intake of Solids: 02/14/25 Time Last Intake of Solids: 23:59 Past Medical History Medical History History of nephrolithotomy with removal of calculi History of basal cell carcinoma History of squamous cell carcinoma History of kidney stones "at least 14 times" Prediabetes metformin daily H/O pancreatic cancer 2008--s/p whipple Nephrolithiasis Acquired absence of other specified parts of digestive tract Exercise / Class Metabolic Activity II 4-5 Yardwork/Stairs/Walk up hill Past Family History Family History Other No family history of adverse response to anesthesia Past Surgical History Surgical History History of right cataract extraction History of surgery on left wrist "infection removed" History of arthroscopy of left knee History of arthroscopy of right knee History of cystoscopy History of lithotripsy History of colonoscopy History of esophagogastroduodenoscopy (EGD) History of hernia surgery History of appendectomy 2007 History of cholecystectomy 2008 during whipple procedure History of squamous cell carcinoma excision removed in office History of Mohs micrographic surgery for skin cancer History of Whipple procedure History of tooth extraction History of wisdom tooth extraction History of tonsillectomy Past Anesthesia History No Hx of Anesthesia Complications and No Family Hx of Anesthesia Complications History of PONV No Hx of PONV and No Hx of Motion Sickness Social History Smoking Status: Former smoker tobacco type: pipe Do You Dip or Chew Tobacco: No Smoking End Date: states quit in 1960s Hx Alcohol Use: Yes Alcohol type: wine alcohol intake frequency: 0-2 drinks per day Hx Substance Use: No substance use type: does not use Review of Systems ROS Unobtainable: All systems reviewed & are unremarkable except as noted in HPI & below Physical Exam Vital Signs Last Vital Signs Temp 36.4 C L 02/15/25 03:02 Pulse 61 02/15/25 03:02 Resp 16 02/15/25 03:02 BP 118/57 L 02/15/25 03:02 Pulse Ox 97 02/15/25 03:02 O2 Del Method Room Air 02/15/25 03:02 ENMT Mouth: no TMJ abnormality Thyromental Distance: > or= 3.5 Finger Breadths Mallampati Class: II Neck normal visual inspection and trachea midline; neck extension not limited Respiratory normal respiratory effort Auscultation: lungs clear to auscultation bilaterally Cardiovascular Rate/Rhythm: regular rate and regular rhythm Heart Sounds: no murmur Musculoskeletal Spine: normal cervical ROM Extremities: full ROM of extremities Neurologic moves all extremities Psychiatric Orientation: alert and oriented x 3 Testing Laboratory Results 02/15/25 06:52 Urine Color Yellow 02/14/25 16:16 Urine Appearance Clear (Clear) 02/14/25 16:16 Urine pH 5.0 (4.5-7.5) 02/14/25 16:16 Ur Specific Brantley 1.021 (1.000-1.030) 02/14/25 16:16 Urine Protein Trace (Negative) H 02/14/25 16:16 Urine Glucose (UA) Negative (Negative) 02/14/25 16:16 Urine Ketones Trace (Negative) H 02/14/25 16:16 Urine Nitrite Negative (Negative) 02/14/25 16:16 Ur Leukocyte Esterase 1+ (Negative) H 02/14/25 16:16 Urine WBC (Auto) 6-10 /hpf (0-5) H 02/14/25 16:16 Urine RBC (Auto) 6-10 /hpf (0-2) H 02/14/25 16:16 U Hyaline Cast (Auto) 0-2 /lpf (0-2) 02/14/25 16:16 U Epithel Cells (Auto) 0-2 /hpf (0-2) 02/14/25 16:16 Urine Bacteria (Auto) None Seen (None Seen) 02/14/25 16:16 02/15/25 02/15/25 02/14/25 06:06 00:11 21:08 POC Glucose 81 297 H 142 H Electrocardiogram Date: 02/14/25 Findings: + NSR @ (1st degree AVB @62bpm) and + RBBB
--- NOTE | 2025-02-15 07:10 | Urology Consultation ---
Date of Consultation February 15, 2025 Assessment & Plan (1) Hydronephrosis concurrent with and due to calculi of kidney and ureter: (2) LILO (acute kidney injury): Plan 79-year-old male admitted for a left proximal obstructing ureteral calculus and LILO. Discussed options with patient and recommended cystoscopy with left retrograde pyelogram and left ureteral stent placement given size of stone, pain and LILO Consent obtained Patient marked Ancef 2 OR History of Present Illness Attending Physician: Nelda Gill MD History of Present Illness 79-year-old male presented to the emergency department on 02/14/2025 with left flank pain. Afebrile with stable vitals. White blood cell count 10.2, hemoglobin 13, creatinine 1.61 with a baseline of roughly 1, and a urinalysis that was negative for nitrites, 1+ leukocyte Estrace, 6-10 WBCs and 6-[address] scan of the abdomen pelvis was performed which I independently reviewed. This showed left moderate hydronephrosis with nonobstructing lower pole stones and a left proximal obstructing ureteral calculus. Allergies Allergy/AdvReac Type Severity Reaction Status Date / Time iodine Allergy Severe Hives Verified 02/14/25 16:49 erythromycin base Allergy Intermediate Hives Verified 02/14/25 16:49 levofloxacin [From Levaquin] Allergy Intermediate Hives Verified 02/14/25 16:49 oxycodone Allergy Intermediate Hives Verified 02/14/25 16:49 Home Medications Medication Instructions Recorded Confirmed Type aspirin 81 mg tablet,delayed 81 mg PO Q OTHER DAY 06/05/20 02/14/25 History release cholecalciferol (vitamin D3) 25 25 mcg PO QDD 06/05/20 02/14/25 History mcg (1,000 unit) tablet (Vitamin D3) lansoprazole 15 mg capsule,delayed 15 mg PO 2XWK 06/05/20 02/14/25 History release [id number]-lyjdqmer-vhqqfho 2 cap PO TIDM 06/05/20 02/14/25 History 24,000-76,000-120,000 unit capsule,delayed rel (Creon) multivitamin 1 tab PO Q OTHER DAY 06/05/20 02/14/25 History vitamin B complex 1 tab PO Q OTHER DAY 06/05/20 02/14/25 History azelastine 137 mcg (0.1 %) nasal 1 spray intranasal BID PRN Allergy 07/12/23 02/14/25 History spray Symptoms calcium citrate 200 mg PO BIDM 07/12/23 02/14/25 History fluticasone propionate 50 2 spray intranasal DAILY PRN 07/12/23 02/14/25 History mcg/actuation nasal Allergy Symptoms spray,suspension metformin 500 mg tablet,extended 500 mg PO QAM 07/12/23 02/14/25 History release 24 hr magnesium oxide 400 mg PO Q OTHER DAY 02/14/25 02/14/25 History Patient History Medical History History of nephrolithotomy with removal of calculi History of basal cell carcinoma History of squamous cell carcinoma History of kidney stones "at least 14 times" Prediabetes metformin daily H/O pancreatic cancer 2008--s/p whipple Nephrolithiasis Acquired absence of other specified parts of digestive tract Surgical History History of right cataract extraction History of surgery on left wrist "infection removed" History of arthroscopy of left knee History of arthroscopy of right knee History of cystoscopy History of lithotripsy History of colonoscopy History of esophagogastroduodenoscopy (EGD) History of hernia surgery History of appendectomy 2006 History of cholecystectomy 2007 during whipple procedure History of squamous cell carcinoma excision removed in office History of Mohs micrographic surgery for skin cancer History of Whipple procedure History of tooth extraction History of wisdom tooth extraction History of tonsillectomy Family History Other No family history of adverse response to anesthesia Social History Smoking Status: Former smoker Tobacco Type: Pipe Smoking End Date: states quit in 1960s; Second Hand Exposure: No; Do You Dip or Chew Tobacco: No; Hx Alcohol Use: Yes Alcohol type: wine Hx Substance Use: No Preferred Language: Italian Communication Ability: Effective Counseling Department Chair Required: No Beliefs That Will Affect Care: Worship Worship Beliefs: Baptism Current Living Situation: Spouse Other Information That Helps Us Care for You: No Feels Safe at Home: Yes Safety Concerns: Feels Safe At This Time Assistive Devices: Glasses Physical Exam Physical Exam: General: Alert and oriented, no acute distress HEENT: Normocephalic, mucous membranes moist Pulmonary: Nonlabored respirations Abdomen: Nondistended Extremities: Moves all 4 spontaneously Neuro: No gross deficits Skin: Warm, dry, no rashes noted Results & Data Vital Signs (Past 12 Hours) Vital Signs Temp Pulse Pulse Pulse Resp BP BP 02/15/25 03:02 36.4 C L 61 16 02/14/25 22:50 36.3 C L 68 18 130/60 02/14/25 22:30 71 02/14/25 21:06 80 02/14/25 20:41 85 17 142/72 H 02/14/25 20:30 36.3 C L 18 02/14/25 20:09 63 20 02/14/25 19:11 63 20 BP Pulse Ox O2 Del Method 02/15/25 03:02 118/57 L 97 Room Air 02/14/25 22:50 95 Room Air 02/14/25 22:30 02/14/25 21:06 02/14/25 20:41 94 Room Air 02/14/25 20:30 144/53 H 98 Room Air 02/14/25 20:09 140/64 97 Room Air 02/14/25 19:11 130/66 97 Room Air PG Care Time/CCT Total # of Minutes Spent Total Time Spent with Patient: Total time spent is greater than 50% in coordination of care (as documented) at patient's floor/unit and/or counseling patient: Coding Level of Care Code 28907 INT INP/OBS CARE 2/55MIN Diagnoses Hydronephrosis concurrent with and due to calculi of kidney and ureter N13.2 LILO (acute kidney injury) N17.9
[2025-02-15 07:37] LABS: Hematocrit (blood only) 36.9 % (42.0-52.0); Hemoglobin 12.5 g/dl (14.0-18.0); Mean Corpuscular Hemoglobin 29.6 pg (25.0-34.0); Mean Corpuscular Hgb Conc 33.9 g/dL (32.0-36.0); Mean Corpuscular Volume 87.2 fL (80.0-100.0); Mean Platelet Volume 9.8 fL (9.4-12.4); Platelet Count 198 K/uL (130-400); RDW Coefficient of Variation 13.2 % (11.5-14.5); RDW Standard Deviation 42.3 fL (36.4-46.3); Red Blood Count 4.23 M/uL (4.70-6.10)
[2025-02-15] MEDS ORDERED: ceFAZolin 330 MG/ML 1 GM VIAL ONE (07:41)
[2025-02-15] MEDS ORDERED: SODIUM CHLORIDE 0.9% PF INJ 10 ML VIAL ONE (07:41)
[2025-02-15] MEDS: ceFAZolin 2000MG 2,000 MG/15 ML SYR IV ONE (07:50)
[2025-02-15 07:52] LABS: BUN Creatinine Ratio 13.3 (10-20); Calcium 8.1 mg/dl (8.6-10.3); Magnesium 1.6 mg/dl (1.7-2.4); Phosphorus 3.7 mg/dl (2.5-4.9); Potassium 4.1 mmol/L (3.5-5.1)
[2025-02-15] MEDS ORDERED: KETOROLAC 30 MG/ML VIAL ONE (08:00)
[2025-02-15] MEDS: DIATRIZOATE MEGLUMINE 30% 100ML VIAL INSTIL ONE (08:10)
--- NOTE | 2025-02-15 08:16 | Operative Report ---
PG Post Operative Report Pre & Post Diagnosis Operation Date: 02/15/25 07:30 Pre-Op Diagnosis: 1. Left Hydronephrosis concurrent with and due to calculi of Left kidney and Left ureter, 2. acute left kidney injury Post-Op Diagnosis: 1. Left Hydronephrosis concurrent with and due to calculi of Left kidney and Left ureter, 2. acute left kidney injury I identified the patient and participated in the time-out.: Yes Procedure Operation Date: 02/15/25 07:30 Actual Procedures p Cystoscopy, Left Retrograde Pyelogram with radiographic interpretation, Left Stent Insertion(Left) - Darren Gross MD Surgeon Darren Gross MD Bus Operator None Estimated Blood Loss 0 Findings See Below Moderate left hydro. Stone seen in proximal ureter. Stent in appropriate position. Specimens None Drains 6 [place] by 26 cm left ureteral stent Anesthesia Type MAC Complications none Indications 79-year-old male with LILO and obstructing left proximal ureteral calculus Description of Procedure After informed consent was obtained, the patient was transported operative suite. MAC anesthesia was induced. The patient was placed in dorsal lithotomy position prepped and draped in a sterile fashion. They received preoperative Ancef for antibiotic prophylaxis. An appropriate surgical timeout was performed. A rigid scope was inserted per urethra into the bladder. Thomas cystoscopy revealed no stones or lesions. I turned my attention the left ureteral orifice and intubated this with a 5 [place] open-ended catheter. A left retrograde pyelogram was shot which showed moderate left hydro. A sensor wire was advanced into the kidney and confirmed fluoroscopically. A 6 [place] by 26 cm left ureteral stent was deployed with a good proximal coil in the renal pelvis and a good distal coil noted in the bladder. A grasper was used to pull some excess proximal coil out of the renal pelvis. These were confirmed fluoroscopically and under direct visualization, respectively. The bladder was emptied and the scope was removed. This concluded the end of the case. All counts were correct at the end of the case. I was present, scrubbed, and actively participated for the entirety of the procedure. I attest to the content of the Intraoperative Record and any orders documented therein. Any exceptions are noted below.
--- NOTE | 2025-02-15 08:35 | Anesthesiology Progress Note ---
Date of Service February 15, 2025 Anesthesia Post Procedure Vital Signs Vital Signs: Temp Pulse Pulse Pulse Resp BP BP 02/15/25 03:02 36.4 C L 61 16 02/14/25 22:50 36.3 C L 68 18 130/60 02/14/25 22:30 71 02/14/25 21:06 80 02/14/25 20:41 85 17 142/72 H 02/14/25 20:30 36.3 C L 18 02/14/25 20:09 63 20 02/14/25 19:11 63 20 02/14/25 18:30 61 18 128/66 02/14/25 18:00 61 17 126/66 02/14/25 17:18 67 20 117/64 02/14/25 16:36 60 16 115/58 L 02/14/25 16:18 63 19 121/90 02/14/25 15:51 69 02/14/25 15:49 02/14/25 15:35 36.6 C 72 18 153/69 H BP Pulse Ox O2 Del Method 02/15/25 03:02 118/57 L 97 Room Air 02/14/25 22:50 95 Room Air 02/14/25 22:30 02/14/25 21:06 02/14/25 20:41 94 Room Air 02/14/25 20:30 144/53 H 98 Room Air 02/14/25 20:09 140/64 97 Room Air 02/14/25 19:11 130/66 97 Room Air 02/14/25 18:30 97 02/14/25 18:00 97 02/14/25 17:18 98 02/14/25 16:36 98 02/14/25 16:18 97 02/14/25 15:51 02/14/25 15:49 97 02/14/25 15:35 99 Room Air Pain Intensity Flank: Pain Intensity: 0 Transfer of Care Handoff Completed per policy Notes Mental Status: alert / awake / arousable Patient Amnestic to Procedure: Yes Nausea / Vomiting: adequately controlled Pain: adequately controlled Airway Patency, RR, SpO2: stable & adequate BP & HR: stable & adequate Hydration State: stable & adequate Anesthetic Complications: no major complications apparent and Pt Satisfied with anesthetic care
[2025-02-15] MEDS: PANCREAZE (LIPASE 16,800U) CAP PO SCH (09:31)
[2025-02-15] MEDS: CALCIUM CITRATE 950 MG TAB PO SCH (09:33)
[2025-02-15] MEDS: MAGNESIUM SULFATE / D5W 1 GM/100 ML BAG IV SCH (09:58)
[2025-02-15 11:47] VITALS: RESP 16
--- NOTE | 2025-02-15 13:13 | Discharge Summary ---
Discharge Summary Date of Service February 15, 2025 Principal Dx & Hospital Course #1 = Principal Diagnosis (1) Left nephrolithiasis: (2) Hydronephrosis concurrent with and due to calculi of kidney and ureter: Plan Mr. Anna is an 79 year old gentleman with DMTII, postal nasal drip, CKD 3a, mild aortiv valve sclerosis, prior duodenal cancer, and prior nephrolithiasis/urolithiasis. Imaging revealed 7mm obstructing left stone with subsequent hydroureteronephrosis. Patient underwent stent placement on 02/15 with Urology. Labs revealed LILO at 1.6 up to 1.86 which appears to have plateaued. Patient with good urine output and pain control. Plan to discharge with follow up BMP to monitor renal function while awaiting lithotripsy #Left obstructing nephrolithiasis with hydroureteronephrosis. #Calcium oxalate renal calculi #History of kidney stones CT Obstructing stone measuring 7 mm in the proximal LEFT ureter resulting in moderate upstream hydroureteronephrosis. h/o recurrent Kidney stone Calcium oxalate type since the Per OP Dr. Dempsey Notes : 24 hr urorisk done 2 times before, high urine oxalate as the problem. Urine ca++, urine citrate was totally fine. S/p Whipple And has Chronic Diarrhea and this also causes excessive oxalate absorption from the gut and then causes excessive Oxalate in the urine. There is no further treatment option for high urine oxalate at this time Urology consulted: s/p stent 02/15, plan for ESWL with Urologist in [place] No indication for abx at this time: no leukocytosis, infectious symptoms at this time, UA with calcium oxalate Calcium citrate BID Continue with tamsulosin qam, pyridium TID Oxybutynin q8h prn spasms #Type 2 diabetes mellitus with diabetic nephropathy, without long-term current use of insulin ([facility]) A1C 7.0% 10/2024 SSI while admitted, hold home po regimen #Hx of PVC #Mild aortic valve sclerosis #History DDfx Stable. Referral to cardiology notes that patient was undergoing lithotripsy procedure and apparently had PVCs which terminated procedure. declined referral monitor on tele and ordered EKG ECHO 202 EF 63%, negative stress for inducible ischemia continue mag supplement continue asa #LILO on Chronic kidney disease, stage 3a (HCC) Cr. 1.2-1.3 in OP review, 1.6 on admission (however 1 value 1.5 in 10/2024) Laboratory test done April 2024 was reviewed and shows creatinine of 1.2 and normal GFR. Continue to monitor labs and trend for true assessment of baseline likely obstructive iso renal stone if lilo present, will order urine studies at this time #Mild normocytic anemia Anemia stable since 2020 - possibly a renal anemia Lab results reviewed: Hgb stable baselin ~12 #Prior duodenal adenocarcinoma S/P Whipple's procedure #Pancreatic insufficiency November 2007 at [facility], completed adjuvant chemotherapy with oxaliplatin, 5-Fluorouracil, leucovorin and radiation treatment. No evidence of recurrent disease noted since then. Continue lansoprazole. Continue creon. Monday and Wednesdays Notes For Next Care Provider Please obtain BMP within 1 week Medication Changes From Visit Start tamsulosin daily while stent in place Start pyridium tid for dysuria s/p instrumentation Start oxybutynin 2.5mg q8h prn for bladder/ureteral spasms Admission HPI Per Admitting Provider Mr. Anna is an 79 year old gentleman with DMTII, postal nasal drip, CKD 3a, mild aortiv valve sclerosis, prior duodenal cancer, and prior nephrolithiasis/urolithiasis.presented to [facility] ED due to left flank pain. Patient states that he was in usual state of health until this last evening with left sided flank discomfort started. He reports that he has been without renal colic for almost a year. He has complicated history of calcium oxalate stones since the . He notes that he has gone over a year without being hospitalized. His last intervention was an ESWL 01/06 in which the procedure terminated early 2/2 "PVCs with couplets" however patient has no further recurrence. He denies fevers, chills, chest pain, palpitations. He denies dysuria at this time or frequency. He reports improvement in pain from /10 to 2/10 since pain medication administration. He currently takes calcium citrate for management per Dr. Morales's suggestion (urologist). In the ED, vitals were notable for BP of 110s-150s, HR of 60s and O2 sat of high 90s on room air Imaging revealed 7mm obstructing left stone in prox ureter EKG ordered ED interventions: NS, Toradol Consultants: Urology Patient to be admitted to ,med/tele for further evaluation and management of obstructing nephrolithasis Admission Exam Per Admitting Provider GENERAL APPEARANCE: AxOx4, generally well-appearing male HEENT: NC, AT. MMM. EOMI, clear conjunctiva, oropharynx clear. NECK: Supple without lymphadenopathy. No stiffness or restricted ROM. HEART: Normal rate and regular rhythm, normal S1/S1, no m/r/g LUNGS: CTAB, moving air well. No crackles or wheezes are heard. ABDOMEN: Soft, nontender, nondistended with good bowel sounds heard. BACK: ++L CVAT, no obvious deformity. EXTREMITIES: Without cyanosis, clubbing or edema. NEUROLOGICAL: Grossly nonfocal. Alert and oriented, moving all 4 extremities. CN not formally tested but appear grossly intact. Skin: Warm and dry without any rash. Discharge Exam Constitutional WD/WN, vitals as above Respiratory normal respiratory effort, lungs clear to auscultation Cardiovascular RRR, no murmur, no edema Gastrointestinal (Abdomen) normal bowel sounds, soft, nontender, no hepatosplenomegaly Updated Medication List Medication Instructions Recorded Confirmed Type aspirin 81 mg tablet,delayed 81 mg PO Q OTHER DAY 06/05/20 02/14/25 History release cholecalciferol (vitamin D3) 25 25 mcg PO QDD 06/05/20 02/14/25 History mcg (1,000 unit) tablet (Vitamin D3) lansoprazole 15 mg capsule,delayed 15 mg PO 2XWK 06/05/20 02/14/25 History release efwsnj-hgsesecr-rbfwrau 2 cap PO TIDM 06/05/20 02/14/25 History 24,000-76,000-120,000 unit capsule,delayed rel (Creon) multivitamin 1 tab PO Q OTHER DAY 06/05/20 02/14/25 History vitamin B complex 1 tab PO Q OTHER DAY 06/05/20 02/14/25 History azelastine 137 mcg (0.1 %) nasal 1 spray intranasal BID PRN Allergy 07/12/23 02/14/25 History spray Symptoms calcium citrate 200 mg PO BIDM 07/12/23 02/14/25 History fluticasone propionate 50 2 spray intranasal DAILY PRN 07/12/23 02/14/25 History mcg/actuation nasal Allergy Symptoms spray,suspension metformin 500 mg tablet,extended 500 mg PO QAM 07/12/23 02/14/25 History release 24 hr magnesium oxide 400 mg PO Q OTHER DAY 02/14/25 02/14/25 History oxybutynin chloride 5 mg tablet 2.5 mg (1/2 x 5 mg) PO Q8H PRN 02/15/25 Rx bladder spasms 14 days #15 tabs phenazopyridine 200 mg tablet 200 mg PO Q8H PRN pain 6 doses #30 02/15/25 Rx (Pyridium) tabs tamsulosin 0.4 mg capsule 0.4 mg PO QAM 14 days #14 caps 02/15/25 Rx Hospital Stay Data Consultations 02/14/25 17:08 Consult Urology Stat 02/14/25 17:09 ED Decision to Admit Stat Procedures Performed Operation Date: 02/15/25 07:30 Actual Procedures p Cystoscopy, Left Retrograde Pyelogram, Left Stent Insertion(Left) - Darren Gross MD Diagnostic Imagining Performed 02/14/25 15:48 CT abd pelvis wo con Stat 02/15/25 FL retrograde includes kub Routine Discharge Instructions Given to Patient (Per Discharging Provider) You were admitted for flank pain and found to have an obstructing kidney stone in the left ureter causing backflow of urine into your left kidney You were seen by Urology who placed a stent on 02/15. You were noted to have an acute kidney injury due to the stone which..... You can take Pyridium three times a day to help ease burning with urination. Continue tamsulosin in the morning to help prevent spasms with the new stent in place. You can take the oxybutynin 2.5 mg every 6-8 hours for further spasms as needed. Please follow up with your Urologist to discuss the stone removal and next steps forward You may resume all other home medications. Total Time Total Time Spent Total Time Spent (In Minutes): By CMS guidelines, a determination that the admission or continued stay is not medically necessary has been made by a member of the UR committee and a physician for this hospital stay, therefore a Code 44 will be completed and the Inpatient admission will be changed to outpatient. 35
[2025-02-15] MEDS ORDERED: oxyBUTYnin chloride 5 MG TAB PO PRN (15:28)
[2025-02-15 16:06] VITALS: BP 127/65; PULSE 71; TEMP 97.5; O2SAT 97
[2025-02-15] MEDS: PHENAZOPYRIDINE HCL 200 MG TAB PO STA (16:13)
[2025-02-15] MEDS: CHOLECALCIFEROL 25 MCG (1000 UNITS) TAB PO SCH (16:15)
[2025-02-15 16:35] LABS: BUN Creatinine Ratio 13.4 (10-20); Creatinine Clr Calc Pharmacy 31.1 ml/min
--- NOTE | 2025-02-15 16:55 | Communication Note ---
By CMS guidelines, a determination that the admission or continued stay is not medically necessary has been made by a member of the UR committee and a physician for this hospital stay, therefore a Code 44 will be completed and the Inpatient admission will be changed to outpatient. Date of Service: February 15, 2025
[2025-02-16] MEDS ORDERED: ASPIRIN 81 MG ECTAB PO SCH (09:00)
--- NOTE | 2025-02-16 12:57 | Electrocardiogram Report ---
Test Reason : Blood Pressure : */* mmHG Vent. Rate : 62 BPM Atrial Rate : 62 BPM P-R Int : 280 ms QRS Dur : 136 ms QT Int : 422 ms P-R-T Axes : 66 15 23 degrees QTcB Int : 428 ms Sinus rhythm with 1st degree A-V block Right bundle branch block Abnormal ECG When compared with ECG of 21-Jun-2020 04:33, Right bundle branch block has replaced Incomplete right bundle branch block Confirmed by Calvin Jin ([id number]) on 02/16/2025 12:56:56 PM Referred By: REFERRED SELF Confirmed By: Calvin Jin
--- NOTE | 2025-02-17 07:27 | Fluoroscopy Report ---
INTRAOPERATIVE FLUOROSCOPIC IMAGES: CLINICAL HISTORY: Left retrograde exam with stent placement. Fluoroscopy time: 24 seconds. Number of fluoroscopic images: 2 Ka,r: 5.84 mGy: FINDINGS: Fluoroscopy was provided during left retrograde pyelogram with left ureteral stent placemen t. The initial image demonstrates the ureteropelvic junction calculus. Proximal aspect of the stent i s within the left collecting system. IMPRESSION: Fluoroscopy provided during left retrograde pyelogram with left ureteral stent placement. Electronically signed by: Jorge Stephenson M.D. 02/17/2025 7:25 AM
== END 2025-02-15 18:11 | disposition home or self-care (01) | DRG 661 ==
LOC: ED 15:33 → EDINP 18:06 → 2N 20:41